=== PATIENT | male | born 1955 | race Caucasian/White ===

== ENCOUNTER → 2019-01-29 | Outpatient (CLI) | payer BC, OTHER ==
--- NOTE | 2019-01-30 00:27 | CONS ---
CONSULTATION DATE OF SERVICE: 01/29/2019 63-year-old gentleman who has [facility] for obstructive sleep apnea-hypopnea syndrome. HISTORY OF PRESENT ILLNESS/SLEEP WAKE EVALUATION: Patient usual sleep schedule on weekdays from 9 p.m. to 3:30 am. On weekends, from about 1:00 am until 4:30 am. No problems with falling asleep. No TV in bedroom. He sleeps in different positions, including back and side with loud snoring and witnessed episodes of stopped breathing during sleep. The patient wakes up from sleep up to 4 times with episodes of choking, grinding teeth, palpitation, gasping for air, restless legs, sweating and has 2 episodes of nocturia. No history of hypnagogic hallucinations, sleep paralysis or cataplexy. Patient feels significantly tired and sleepy during the day. Edison Sleepiness Scale is in very high range of 19. PAST MEDICAL HISTORY: Positive for hypertension. PAST SURGICAL HISTORY: Left hip replacement. MEDICATIONS: Lisinopril, metoprolol, meloxicam. FAMILY HISTORY: Hypertension, heart problems, hyperlipidemia, fibromyalgia, snoring, cancer, diabetes, acid reflux, ulcers. SOCIAL HISTORY: Quit smoking more than 20 years ago. Alcohol consumption none. REVIEW OF SYSTEMS: Multiple awakenings from sleep, tiredness and sleepiness during the day. Swelling of the legs. PHYSICAL EXAM: gentleman without distress. BP 120/68, HR 82, RR 18, height 5 feet 9 inches, weight 303 pounds. Body mass index 44.7, temperature 98.1, oxygen saturation at room air 94%. Oropharynx extremely low position of soft palate. Mallampati 4, restriction of nasal breathing bilaterally, wide neck 18.5 inches in circumference. ABDOMEN: Obese EXTREMITIES 1-2+ bilateral ankle edema. Sign of some pulling dermatitis of the skin of the low legs. IMPRESSION: 1. Snoring, witnessed episodes of stopped breathing during sleep, multiple awakenings from sleep, extremely low position of soft palate, wide neck, sleepiness, obstructive sleep apnea-hypopnea syndrome. 2. Very high range of level Edison Sleepiness Scale of 19. Dictate necessity to include hypersomnia in differential diagnosis. 3. Obesity. Obesity, body mass index 44.7. 4. Asthma. 5. Hypertension. 6. History of extrasystoles. 7. Status post left hip replacement. 8. Swelling of the legs with sign of chronic dermatitis of the low legs, possible congestive heart failure. PLAN: 1. Polysomnography for evaluation of patient's breathing during sleep. 2. CPAP/BiPAP titration if sleep study confirms obstructive sleep apnea-hypopnea syndrome. 3. Preferable position during sleep on the side. 4. No driving if patient feels any sleepiness. 5. I will see patient for follow up visit to explain results of testing and following plan. Popeye Jeffries MD, PhD, FAASM Diplomat of [place] [employer] [place] [employer] [facility] [place] MMODL / IJN: [id number] /
== END ==
LOC: SLEEP 16:44
PROVIDERS: ATTEND Internal Medicine
DX: G47.33 Obstructive sleep apnea (adult) (pediatric) (principal); E66.9 Obesity, unspecified; J45.909 Unspecified asthma, uncomplicated; I10 Essential (primary) hypertension; I49.49 Other premature depolarization; R60.0 Localized edema; Z96.642 Presence of left artificial hip joint; Z68.41 Body mass index [BMI] 40.0-44.9, adult; Z87.891 Personal history of nicotine dependence; Z79.1 Long term (current) use of non-steroidal anti-inflammatories (NSAID); Z79.899 Other long term (current) drug therapy
CPT/HCPCS: 99211

== ENCOUNTER → 2019-03-27 | Outpatient (CLI) | payer OTHER | END | disposition home or self-care (01) | LOC: LABPAT 16:32 | PROVIDERS: ATTEND Orthopaedic Surgery | DX: Z01.812 Encounter for preprocedural laboratory examination (principal) | CPT/HCPCS: 87070 ==

== ENCOUNTER 2019-04-21 09:21 | Inpatient (IN) | payer OTHER ==
[2019-04-16 14:48] VITALS: BMI 45.8
--- NOTE | 2019-04-20 09:52 | HP ---
HISTORY AND PHYSICAL CHIEF COMPLAINT: Left knee pain. HISTORY OF PRESENT ILLNESS: The patient is a 63-year-old male who presents with left knee pain that has progressed over the past several years. He has had 2 previous surgeries in the 1970s. He notes swelling and stiffness. He has difficult time with normal weightbearing activities. He has tried medications and previous injections with minimal relief. PAST MEDICAL HISTORY: Significant for arthritis, bipolar affective disorder, heart disease, hypertension, obesity, and psoriasis. PAST SURGICAL HISTORY: Significant for previous left knee surgeries, previous right foot surgery, umbilical hernia repair along with right total hip arthroplasty. CURRENT MEDICATIONS: 1. Hydrochlorothiazide. 2. Lisinopril. 3. Metoprolol. He denies drug allergies. FAMILY HISTORY: Significant for cancer and heart disease. SOCIAL HISTORY: Significant for previous tobacco use. REVIEW OF SYSTEMS: A 16-point review of systems otherwise reviewed and is noncontributory. PHYSICAL EXAMINATION: The patient is approximately 5 foot 9, 310 pounds of endomorphic habitus. HEENT: Exam is nonfocal. NECK: Supple. He has painless passive motion of his left hip. Straight leg raise is negative. Active motion left knee -16 to 105 degrees of flexion. He has a healed medial arthrotomy. He has a large effusion. He is tender about the medial joint line. Collaterals are stable, Rachna is negative, Yogesh's is equivocal. He has genu varum alignment. He has venostasis changes in both lower extremities; 2+ pedal pulses are noted bilaterally. Previous x-rays of the left knee obtained in the office show severe medial and patellofemoral compartment narrowing. IMPRESSION: 1. Left knee severe medial and patellofemoral compartment osteoarthrosis. 2. Obesity. 3. Venostasis. RECOMMENDATIONS: I talked to the patient at length regarding his condition and treatment options. At this point, he is quite symptomatic despite conservative measures. After thorough discussion, opted to proceed with surgery. We will plan to proceed with left total knee arthroplasty. We will institute DVT prophylaxis postoperatively. MMODL / IJN: [id number] /
[~2019-04-21 09:21] MED LIST: ACETAMINOPHEN TAB 500 MG TAB PO ONE; DEXAMETHASONE SOD PHOSPHATE 10 MG/ML 1 ML VIAL IV ONE; LIDOCAINE 1% 20 ML VIAL (10MG/ML) FOR IV START INTRADERMA PRN; MELOXICAM 7.5 MG TAB PO ONE; ONDANSETRON 4 MG/2 ML VIAL IVP ONE; TRANEXAMIC ACID 1,000 MG in SODIUM CHLORIDE 0.9% 100 ML IVPB ONE; ceFAZolin 3 GM in SODIUM CHLORIDE 0.9% 100 ML IVPB ONE; fentaNYL (PF) 50 MCG/ML 2 ML AMP IV PRN
[2019-04-21] MEDS: LACTATED RINGERS 1,000 ML IV SCH (09:47)
[2019-04-21] MEDS ORDERED: MIDAZOLAM 2 MG/2 ML VIAL IV ONE (10:38)
[2019-04-21] MEDS ORDERED: fentaNYL (PF) 50 MCG/ML 2 ML AMP IV ONE (10:38)
[2019-04-21] MEDS ORDERED: ROPIVACAINE 246.25 MG, EPINEPHrine 0.5 MG, KETOROLAC 30 MG, cloNIDine HCL/PF 80 MCG, WA... MISCELLANE ONE ×5 (11:11)
[2019-04-21] MEDS ORDERED: LIDOCAINE 1% INJ 10MG/ML (20 ML MDV) ONE (11:44)
[2019-04-21] MEDS ORDERED: PROPOFOL 10 MG/ML 20 ML VIAL IV ONE (11:44)
[2019-04-21] MEDS ORDERED: ePHEDrine 50 MG/ML 1 ML AMP ONE (11:44)
[2019-04-21] MEDS ORDERED: TRANEXAMIC ACID 1,000 MG/10 ML VIAL ONE (11:44)
[2019-04-21] MEDS ORDERED: KETAMINE 10 MG/ML 20 ML VIAL ONE (11:44)
[2019-04-21] MEDS ORDERED: diphenhydrAMINE 50 MG/ML 1 ML VIAL ONE (11:44)
[2019-04-21] MEDS ORDERED: PHENYLEPHRINE-0.9% NACL SYG 1 MG/10 ML SYRINGE ONE (11:44)
[2019-04-21] MEDS ORDERED: MIDAZOLAM 2 MG/2 ML VIAL ONE (11:44)
[2019-04-21] MEDS ORDERED: SODIUM CHLORIDE 0.9% 100 ML BAG ONE (11:44)
[2019-04-21] MEDS ORDERED: fentaNYL (PF) 50 MCG/ML 2 ML AMP ONE (11:44)
[2019-04-21] MEDS ORDERED: ceFAZolin 3,000 MG in SODIUM CHLORIDE 0.9% IRRIGATIO 3,000 ML IRRIGATION ONE (12:25)
[2019-04-21] MEDS ORDERED: LACTATED RINGERS 1,000 ML IV ONE (13:08)
[2019-04-21] MEDS ORDERED: NALOXONE 0.4 MG/ML 1 ML VIAL IV PRN (13:51)
[2019-04-21] MEDS ORDERED: HYDROcodone/APAP 7.5-325MG 1 EACH TAB PO PRN (13:51)
[2019-04-21] MEDS ORDERED: HYDROmorphone 0.5 MG/0.5 ML SYRINGE IVP PRN (13:51)
[2019-04-21] MEDS ORDERED: traMADol 50 MG TAB PO PRN (13:51)
[2019-04-21] MEDS ORDERED: MAGNESIUM HYDROXIDE 2,400 MG/10 ML CUP PO PRN (13:51)
[2019-04-21] MEDS ORDERED: ONDANSETRON 4 MG/2 ML VIAL IVP PRN (13:51)
--- NOTE | 2019-04-21 14:19 | P.OP ---
Date of Procedure: 04/21/19 Preoperative Diagnosis: Left knee severe tricompartmental osteoarthrosis Postoperative Diagnosis: Same Procedure(s) Performed: Left total knee arthroplastycementedposterior stabilized Implants: Depuy Attune size 7 cemented femoral component, size 6 cemented tibial component with a 50 mm tibial stem, 9 mm articular surface, 38 mm cemented patellar component. This is a posterior stabilized implant. Anesthesia: regional, local, spinal Surgeon: Jose Amato Fluxer #1: Alfredo Ybarra Estimated Blood Loss (ml): 50 Pathology: other (Bone fragments) Condition: stable Disposition: PACU Indications for Procedure: The patient's a 63-year-old male who presents with progressive left knee pain secondary to osteoarthrosis despite conservative measures. A discussion of the risks and benefits of operative intervention versus continued conservative measures was made with the patient. He opted to proceed with surgery. Operative risks to include infection, neurovascular injury, development of blood clots, possible fracture, possible component loosening and need for subsequent procedures was discussed. Informed consent was obtained. Operative Findings: As below Description of Procedure: The patient was brought to the operating room, and after induction of spinal anesthesia the left lower extremity was prepped and draped in a normal fashion. The tourniquet was inflated to 270 mm marker. A longitudinal incision extending 3 finger breaths above the superior pole of patella extending to the medial aspect the tibial tubercle was then made. The skin and subcutaneous tissues were divided sharply. Electrocautery was used for hemostasis. A medial parapatellar arthrotomy was performed. The medial soft tissues to include the superficial and deep portions of the medial collateral ligament were elevated subperiosteally. The patella was everted. A portion of the retropatellar fat pad was excised sharply. The anterior cruciate ligament was sacrificed. Blunt retractors were placed. A starting hole was made in the distal femur 1 cm anterior to the posterior cruciate ligament origin. An intramedullary femoral guide was then inserted planning on 5 valgus distal cut with 9 mm distal resection. The cutting block was pinned in place. The distal cut was then made. The posterior referencing sizing guide was utilized. I felt size 7 was most appropriate. 3 of external rotation was built into the system and verified off the trans-epicondylar axis and the posterior condyles. The cutting block was pinned in place. The anterior, posterior, and chamfer cuts then made. Bone fragments were removed. The intercondylar guide was placed and the notch cut was made with a sagittal saw. The bone block was removed in one fragment. The trial component was then placed. There is good anterior to posterior and medial to lateral fit. The distal peg holes were drilled. The trial component was removed. Attention was then paid towards preparing the proximal area. An extra medullary guide was utilized in line with the tibial shaft and second metatarsal distally. I planned on 2 mm resection from the medial compartment. The cutting block was pinned in place. The proximal tibial cut was then made. The bone was removed in one fragment. The remnants of the medial and lateral menisci were excised at the capsular junction with electrocautery. The tibia sized most appropriately at size 6. The trial femoral and tibial components were placed along with a 9 mm articular surface. I was able to obtain full flexion and extension with internal and external rotation. After several flexion and extension cycles, the tibial rotation was marked with electrocautery line with the medial one third of the tibial tubercle. Attention was then paid towards preparing the patella. A patella reamer was utilized taking stem to 14 mm of bone stock. A good flush cut was made. The patella sized most appropriately 38 mm. The peg holes were drilled. The trial components placed. I had good patellofemoral tracking with no hands technique. The trial components were then removed. The tibia was prepared in the appropriate rotation with appropriate drill and keel punch. The posterior osteophytes were removed with a curved osteotome. The flexion and extension gaps were checked and felt to be symmetric. A trial components were then removed. The posterior soft tissues were injected with ropivacaine. The bony surfaces were prepared with pulsatile lavage and dried. The tibial component was then cemented place was fully seated. Excess cement was removed. The femoral component cemented place and was fully seated. Excess cement was removed. The trial 9 mm articular surface was placed and the knee was put in full extension. The patella component was cemented place. After the cement had sufficiently hardened, the knee was again taken through a range of motion. Again I was able to obtain full flexion and extension with varus and valgus stress. The trial 9 mm articular surface was removed and the final one inserted. This was fully seated. Care was taken to avoid any soft tissue interposition. Pulsatile lavage was again utilized. The medial parapatellar arthrotomy was closed with #2 Ethibond suture. The tourniquet was deflated with approximately 80 minutes total tourniquet time. Final hemostasis was obtained with the cautery. There was minimal bleeding therefore a deep drain was not placed. The second dose of IV TXA was given. The subcutaneous tissues were reapproximated with interrupted 2-0 Vicryl sutures. The skin was reapproximated with 3-0 subcuticular strata fix suture. Skin tape and adhesive was applied. A sterile dressing was applied. The patient was awoken from sedation and transferred to recovery room in good condition. Blood loss was estimated at 50 mL. No complications were incurred. Sponge and needle counts were correct at the end of the case. Roberto COLLINS assisted during the major components of this case to include exposure, bone resection, implantation, and closure.
[2019-04-21] MEDS ORDERED: ROPIVACAINE 0.2%-NS ON-Q PUMP 1,090 MG, EMPTY PAIN BALL 1 EACH MISCELLANE PRN ×2 (14:27→14:32)
--- NOTE | 2019-04-21 14:38 | P.ANPRN ---
Procedure Note - Anesthesia - Nerve Block Performed Left Adductor Canal Infusion Time Out Performed: Yes Date of Procedure: 04/21/19 Procedure Start Time: 10:35 Procedure Stop Time: 10:48 Location of Patient Procedure: PreOp Indication: Acute Post-Operative Pain, Requested by Surgeon Specifically requested for management of pain by DrJose: Jose Amato Sedation Type: Sedate with meaningful contact maintained Preparation: Sterile Prep Position: Supine Catheter Depth at Skin (cm): 10 Catheter: Indwelling Needle Types: Pajunk Needle Gauge: 18 Ultrasound used to visualize needle placement: Yes Ultrasound used to observe medication spread: Yes Injectate: 0.5% Ropivacaine (see comment for volume) (20 cc) Blood Aspirated: Yes Pain Paresthesia on Injection Noted: No Resistance on Injection: Normal Image Stored and Saved: Yes Events: Other (see comment) (Very deep catheter tip placement with needle at a steep angle. Repositioned without blood aspiration to good effect.)
[2019-04-21] MEDS: HYDROmorphone 0.5 MG/0.5 ML SYRINGE IVP PRN ×3 (14:49→15:23)
--- NOTE | 2019-04-21 14:54 | XR ---
EXAMINATION TYPE: XR knee limited LT DATE OF EXAM: 04/21/2019 CLINICAL HISTORY: Left knee pain and arthritis status post total knee replacement. TECHNIQUE: Portable AP and crosstable lateral views of the left knee are obtained immediately postop eratively. COMPARISON: None FINDINGS: Metallic hardware from total left knee arthroplasty is seen and appears satisfactory in al ignment and position. There is evidence of recent surgery with diffuse subcutaneous gas and soft tis rafael swelling noted. IMPRESSION: METALLIC HARDWARE FROM TOTAL LEFT KNEE ARTHROPLASTY IS SATISFACTORY IN ALIGNMENT.
[2019-04-21] MEDS ORDERED: KETOROLAC 30 MG/ML 1 ML VIAL IVP ONE (15:05)
[2019-04-21] MEDS ORDERED: diphenhydrAMINE 50 MG/ML 1 ML VIAL IVP ONE (15:14)
[2019-04-21] MEDS: HYDROmorphone 1 MG/ML 1 ML SYRINGE IVP PRN ×2 (16:06→19:55)
[2019-04-21] MEDS: ceFAZolin 3 GM in SODIUM CHLORIDE 0.9% 100 ML IVPB SCH (19:55)
[2019-04-21] MEDS ORDERED: SENNOSIDES-DOCUSATE SODIUM 1 EACH TAB PO SCH (21:00)
[2019-04-21] MEDS: HYDROcodone/APAP 7.5-325MG 1 EACH TAB PO PRN (21:17)
[2019-04-22] MEDS: HYDROmorphone 1 MG/ML 1 ML SYRINGE IVP PRN (01:43)
[2019-04-22] MEDS: ceFAZolin 3 GM in SODIUM CHLORIDE 0.9% 100 ML IVPB SCH (04:34)
[2019-04-22] MEDS: HYDROcodone/APAP 7.5-325MG 1 EACH TAB PO PRN ×3 (04:38→13:17)
[2019-04-22] MEDS: LACTATED RINGERS 1,000 ML IV SCH (06:24)
[2019-04-22] MEDS ORDERED: LISINOPRIL 20 MG TAB PO SCH (09:00)
[2019-04-22] MEDS ORDERED: METOPROLOL SUCCINATE (ER) 25 MG TAB.ER.24H PO SCH (09:00)
[2019-04-22] MEDS ORDERED: MELOXICAM 7.5 MG TAB PO SCH (09:00)
[2019-04-22] MEDS ORDERED: RIVAROXABAN 10 MG TAB PO SCH (09:00)
[2019-04-22 09:26] LABS: Basophils % (A) 0 %; Eosinophils % (A) 0 %; HCT 41.1 % (39.0-53.0); HGB 13.3 gm/dL (13.0-17.5); Lymphocytes % (A) 9 %; MCH 29.4 pg (25.0-35.0); MCHC 32.3 g/dL (31.0-37.0); MCV 91.1 fL (80.0-100.0); Monocytes # (A) 0.8 k/uL (0-1.0); Monocytes % (A) 7 %; Neutrophils # (A) 8.4 k/uL (1.3-7.7); Neutrophils % (A) 81 %; Platelet Count 166 k/uL (150-450); RBC 4.52 m/uL (4.30-5.90); RDW 12.6 % (11.5-15.5); WBC 10.3 k/uL (3.8-10.6)
--- NOTE | 2019-04-22 11:37 | P.PN ---
Subjective Progress Note Date: 04/22/19 Principal diagnosis: Status post left total knee arthroplasty Patient evaluated at bedside, he is resting comfortably. His done very well with therapy. His pain is controlled. Denies any chest pain, shortness of breath, nausea or vomiting. Objective - Vital Signs Vital signs: Vital Signs Temp 97.9 F 04/22/19 07:00 Pulse 71 04/22/19 07:00 Resp 12 04/22/19 07:00 BP 132/74 04/22/19 07:00 Pulse Ox 93 L 04/22/19 07:00 Intake & Output 04/21/19 04/22/19 04/22/19 18:59 06:59 18:59 Intake Total 1701 Output Total 50 400 200 Balance 1651 -400 -200 Intake: IV 1701 Output: Urine 400 200 Estimated Blood Loss 50 Other: Voiding Method Urinal Toilet # Voids 2 1 - Exam Left lower extremity: Incision is clean, dry, and intact. Small amount of drainage noted at the distal end of the incision. The exofin fusion tape is in good condition. There is minimal soft tissue swelling and ecchymosis surrounding the medial and lateral aspects of the incision. Calf is soft, no tenderness with palpation. Plantar flexion, dorsiflexion, EHL, FHL are intact. Sensory exam to light touch throughout the extremity is intact, dorsal pedis pulses 2+. - Labs CBC & Chem 7: 04/22/19 08:39 Labs: Abnormal Lab Results - Last 24 Hours (Table) 04/22/19 Range/Units 08:39 Neutrophils # 8.4 H (1.3-7.7) k/uL Assessment and Plan Plan: Assessment: Postop day #1 status post left total knee arthroplasty Plan: Pain control, discharge on oral medication GI and DVT prophylaxis, Xarelto 10 mg daily for 12 days Wound care instructions discussed with patient at bedside Home therapy and nursing after discharge Icing elevating techniques discussed Medical recommendations Discharge home today Time with Patient: Less than 30
--- NOTE | 2019-04-22 11:40 | P.DS ---
Providers Date of admission: 04/21/19 09:21 Expected date of discharge: 04/22/19 Attending physician: Jose Amato Consults: 04/21/19 13:53 Consult Physician Routine Consulting Provider: Leah Reid Reason/Comments: medical management Do you want consulting provider notified?: Yes Primary care physician: Leah Reid [place] Hospital Course: Date of admission: 04/21/2019 Date of discharge: 04/22/2019 Admission diagnosis: Status post left total knee arthroplasty Discharge diagnosis: Same Attending physician: Dr. Amato Surgical procedures: Left total knee arthroplasty Brief history: Patient is a 63-year-old male with a history of progressive primary left knee osteoarthritis. At this point patient has failed conservative treatment measures and has opted to proceed with a elective left total knee arthroplasty. Hospital course: Details of patient's surgery can be found in operative report. Patient tolerated the procedure well and was subsequently transported to orthopedic floor. Patient's orthopeidc and medical care was provided daily. Patient had daily laboratory tests performed for evaluation of overall blood counts. Patient had daily physical therapy to include strengthening range of motion as well as education with walker ambulation. Patient had daily CPM usage as part of their physical therapy program. Patient was treated with Xarelto for their postoperative DVT prophylaxis during their inpatient stay. Patient was noted to have a relatively uneventful postoperative course. Patient reported satisfactory pain control with oral pain medications by postoperative day 0. Patient showed satisfactory progress with physical therapy. Patient moved steadily through the program and had no difficulty meeting the goals by postoperative day 1. Given patient's otherwise satisfactory course and having met physical therapy goals, plan is to discharge patient home on postoperative day 1. Discharge condition/disposition: Patient will be discharged home in stable condition. Discharge medications: Instructions are given on resumption of patient's normal daily medications per primary care recommendation, in addition patient will be prescribed [place] 7.5 mg/325 mg, Colace 100 mg, Xarelto 10 mg. Discharge instructions: 1. Wound care and infection precautions, keep incision dry and covered while showering, no lotions, creams, moisturizers. No soaking, tubs, pools, hottubs. Do not scrub over the incision. 2. Weight-bear as tolerated with walker / cane until follow-up. 3. Ice and elevate when necessary. Do not exceed 20 minutes per hour with ice pack. 4. Utilize compression sleeve until seen at first follow up appointment. 5. Visiting nursing care. 6. Home physical therapy including home CPM. 7. Pain meds and anticoagulants per prescription. 8. Pain medication has potential to cause constipation. Increase oral fluid and fiber intake. Contact primary care provider if you have not had a bowel movement within 48 hours after discharge 9. No anti-inflammatory medication until discussed at first post operative visit, this including Motrin, Aleve, Mobic, Diclofenac. 10. Follow up in office at 2 weeks postop with Roberto Ybarra PA-C 11. Follow up with your primary care doctor 7-10 days after discharge. 12. Contact [facility] with any questions, . Procedures: Left total knee arthroplasty Patient Condition at Discharge: Good Plan - Discharge Summary Discharge Rx Participant: Yes New Discharge Prescriptions: New Docusate [Colace] 100 mg PO DAILY #30 capsule HYDROcodone/APAP 7.5-325MG [[place] 7.5] 1 - 2 each PO Q6HR PRN #56 tab PRN Reason: Pain Rivaroxaban [Xarelto] 10 mg PO DAILY #12 tab No Action Metoprolol Succinate (ER) [Toprol Xl] 25 mg PO DAILY Lisinopril [Zestril] 20 mg PO DAILY Discharge Medication List Lisinopril [Zestril] 20 mg PO DAILY 04/16/19 [History] Metoprolol Succinate (ER) [Toprol Xl] 25 mg PO DAILY 04/16/19 [History] Docusate [Colace] 100 mg PO DAILY #30 capsule 04/22/19 [Rx] HYDROcodone/APAP 7.5-325MG [[place] 7.5] 1 - 2 each PO Q6HR PRN #56 tab 04/22/19 [Rx] Rivaroxaban [Xarelto] 10 mg PO DAILY #12 tab 04/22/19 [Rx] Follow up Appointment(s)/Referral(s): [facility] [NON-STAFF] - As Needed (walker and continuous passive motion knee machine) Leah Reid DO [Primary Care Provider] - 04/29/19 12:00 pm (At [facility]) [facility], [NON-STAFF] - As Needed Alfredo Ybarra PAC [PHYSICIAN PROPERTY INSURANCE CLAIMS EXAMINER] - 05/06/19 3:50 pm Activity/Diet/Wound Care/Special Instructions: Orthopedic Discharge Instructions: 1. Wound care and infection precautions, keep incision dry and covered while showering, no lotions, creams, moisturizers. No soaking, pools, hot tubs. Do not scrub over incision. 2. Weight-bear as tolerated with walker / cane until follow-up. 3. Ice and elevate when necessary. Do not exceed 20 minutes per hour with ice pack. 4. Utilize compression sleeve until seen at first follow up appointment. 5. Pain meds and anticoagulants per prescription. 6. Pain medication has potential to cause constipation. Increase oral fluid and fiber intake. Contact primary care provider if you have not had a bowel movement within 48 hours after discharge. 7. No anti-inflammatory medication until discussed at first post operative visit, this including Motrin, Aleve, Mobic, Diclofenac. 8. Follow up in office at 2 weeks postop with Roberto Ybarra PA-C 9. Follow up with your primary care doctor 7-10 days after discharge. 10. Contact [facility] with any questions, . Discharge Disposition: HOME WITH HOME HEALTH SERVICES
--- NOTE | 2019-04-22 11:58 | P.PN ---
Progress Note - Text Progress Note Date: 04/22/19 Patient was seen at bedside at 6:35 AM. He is postop day 1 from left total knee replacement with adductor canal catheter placed for pain . Ropivacaine 0.2% infusion running at 8 ml per hour. VAS score is 6. He denies side effects. Lower extremity sensation and motor function is intact. He has not yet ambulated. Dressing clean dry and intact over catheter site.
[2019-04-22 13:18] VITALS: BP 131/78; PULSE 88; RESP 16; TEMP 98
--- NOTE | 2019-04-22 23:27 | P.CONS ---
History of Present Illness - Reason for Consult Consult date: 04/22/19 medical management - Chief Complaint knee pain - History of Present Illness Galindo Olivo is a 63 yo M with hx OA, HTN, PVC who is POD#1 after a scheduled L TKA. He is feeling well today, endorses some pain with bearing weight and bending his knee. Denies fever, chills, chest pain or leg swelling. He has no concerns today Review of Systems All systems: negative Constitutional: Denies chills, Denies fever Eyes: denies blurred vision, denies pain Ears, nose, mouth and throat: Denies headache, Denies sore throat Cardiovascular: Denies chest pain, Denies shortness of breath Respiratory: Denies cough Gastrointestinal: Denies abdominal pain, Denies diarrhea, Denies nausea, Denies vomiting Musculoskeletal: Reports as per HPI, Denies myalgias Integumentary: Denies pruritus, Denies rash Neurological: Denies numbness, Denies weakness Psychiatric: Denies anxiety, Denies depression Endocrine: Denies fatigue, Denies weight change Past Medical History Past Medical History: Hypertension, Osteoarthritis (OA), Sleep Apnea/CPAP/BIPAP Additional Past Medical History / Comment(s): uses cpap History of Any Multi-Drug Resistant Organisms: None Reported Past Surgical History: Hernia Repair, Joint Replacement, Orthopedic Surgery Additional Past Surgical History / Comment(s): BILAT HAND SX, RT FOOT SX X3, LT KNEE SX X 2, LT MARYELLEN, COLONOSCOPY, GRAPEFRUIT SIZED CYST REMOVED FROM TAILBONE AREA Past Anesthesia/Blood Transfusion Reactions: No Reported Reaction Smoking Status: Former smoker - Past Family History Mother Family Medical History: Cancer Medications and Allergies Home Medications Medication Instructions Recorded Confirmed Type Lisinopril [Zestril] 20 mg PO DAILY 04/16/19 04/16/19 History Metoprolol Succinate (ER) [Toprol 25 mg PO DAILY 04/16/19 04/16/19 History Xl] Apixaban [Eliquis] 2.5 mg PO BID #60 tab 04/22/19 Rx Docusate [Colace] 100 mg PO DAILY #30 capsule 04/22/19 Rx HYDROcodone/APAP 7.5-325MG [[place] 1 - 2 each PO Q6HR PRN #56 tab 04/22/19 Rx 7.5] Allergies Allergy/AdvReac Type Severity Reaction Status Date / Time No Known Allergies Allergy Verified 04/21/19 09:39 Physical Exam Vitals: Vital Signs Temp Pulse Resp BP Pulse Ox 04/22/19 12:32 98 F 88 16 131/78 93 L 04/22/19 07:00 97.9 F 71 12 132/74 93 L 04/22/19 01:01 97.9 F 71 18 112/67 95 Intake and Output 04/22/19 04/22/19 04/23/19 14:59 22:59 06:59 Output Total 200 Balance -200 Output: Urine 200 Other: Voiding Method Toilet # Voids 1 General: well nourished, well developed, NAD. Vitals reviewed Eyes: PERRL, EOMI, conjunctiva normal HENT: normocephalic, mucus membranes moist Neck: supple, no JVD Lungs: normal respiratory effort, no wheezes or rales CV: Regular rate and rhythm, no murmur. Peripheral pulses 2+ Abdomen: soft, nondistended, no organomegaly MSK: L knee c/d/i, no edema Lymph: no cervical or axillary LAD Skin: warm and dry. Neuro: A&Ox3, normal mood and affect Results CBC & Chem 7: 04/22/19 08:39 Labs: Abnormal Lab Results - Last 24 Hours (Table) 04/22/19 Range/Units 08:39 Neutrophils # 8.4 H (1.3-7.7) k/uL Assessment and Plan (1) Hypertension Status: Acute Code(s): I10 - ESSENTIAL (PRIMARY) HYPERTENSION SNOMED Code(s): 08211874 (2) PVC (premature ventricular contraction) Status: Acute Code(s): I49.3 - VENTRICULAR PREMATURE DEPOLARIZATION SNOMED Code(s): 89669719 (3) Osteoarthritis of left knee Status: Acute Code(s): M17.12 - UNILATERAL PRIMARY OSTEOARTHRITIS, LEFT KNEE SNOMED Code(s): 648703591870541 (4) S/P total knee arthroplasty Status: Acute Code(s): Z96.659 - PRESENCE OF UNSPECIFIED ARTIFICIAL KNEE JOINT SNOMED Code(s): 5839243610395 Plan: 1. L knee OA. S/p TKA. Medically stable for discharge. PT per primary 2. HTN. PVC. Continue home lisinopril and toprol
== END 2019-04-22 14:39 | disposition home health service (06) | DRG 470 ==
LOC: 2ORMAIN 09:21 → 4SSUR 15:33
PROVIDERS: ADMIT Orthopaedic Surgery; ATTEND Orthopaedic Surgery
PROC: 0SRD0J9 Replacement of Left Knee Joint with Synthetic Substitute, Cemented, Open Approach (ICD-10-PCS; principal; 2019-04-21 11:00)
DX: M17.12 Unilateral primary osteoarthritis, left knee (principal); Z68.42 Body mass index [BMI] 45.0-49.9, adult; E66.9 Obesity, unspecified; F31.9 Bipolar disorder, unspecified; G47.30 Sleep apnea, unspecified; Z99.89 Dependence on other enabling machines and devices; I49.3 Ventricular premature depolarization; Z79.01 Long term (current) use of anticoagulants; Z79.899 Other long term (current) drug therapy; Z87.891 Personal history of nicotine dependence; Z96.641 Presence of right artificial hip joint; L40.9 Psoriasis, unspecified; Z82.49 Family history of ischemic heart disease and other diseases of the circulatory system; Z80.9 Family history of malignant neoplasm, unspecified; I87.8 Other specified disorders of veins; I11.9 Hypertensive heart disease without heart failure
CPT/HCPCS: 64448; 76942; 85025; 88300

== ENCOUNTER → 2019-07-16 | Outpatient (CLI) | payer OTHER ==
--- NOTE | 2019-07-16 16:57 | PN ---
PROGRESS NOTE DATE OF SERVICE: 07/16/2019 This patient is a 64-year-old gentleman who has been [facility] for treatment of obstructive sleep apnea-hypopnea syndrome. Recently the patient had a polysomnogram which showed extremely severe sleep apnea and then he had CPAP titration. Subsequently his respiration during titration normalized. I explained results of the test to the patient in detail. He received his CPAP unit and today is his first visit after he was started on treatment with CPAP. The patient is able to use CPAP equipment every night and he sleeps much better with the CPAP treatment than without; sleeps better, feels better during the day. Does not feel sleepiness anymore. [place] Sleepiness Scale today is 6. I checked his CPAP unit. CPAP pressure is in the range between 10 and 19. Average pressure is 14.9. Usage is 30/30 nights and 24/30 nights for more than 4 hours with average usage 5.3 hours, which is very good compliance. Leak is only 8 L/minute. Apnea- hypopnea index is only 1.3, which is absolutely perfect. MEDICATIONS: Lisinopril, metoprolol, meloxicam. PHYSICAL EXAMINATION: GENERAL: A pleasant patient in no distress. VITAL SIGNS: BP 156/89, HR 76, RR 16, weight 320. Temperature 96.2, oxygen saturation at room air 96%. HEENT: PERRLA, EOMI. Evaluation of oropharynx showed tongue protrudes midline. Extremely low position of soft palate. Mallampati IV. NECK: Supple. No JVD. Thyroid is not palpable. LUNGS: Clear to percussion and to auscultation. Good air exchange. No wheezing or rhonchi. HEART: S1, S2 regular. No murmurs, gallops or rubs. ABDOMEN: Obese. EXTREMITIES: No clubbing or cyanosis. [employer]: Awake, alert, and oriented X3. Cranial nerves 2 to 7 intact. There is no fasciculation or atrophy. noted. No focal deficits observed. IMPRESSION: 1. Extremely severe obstructive sleep apnea-hypopnea syndrome with apnea-hypopnea index 97.6 with extremely severe oxygen desaturation to 60.2%, under full control with CPAP. The patient demonstrated practically 100% compliance with treatment, benefitting from treatment. 2. Some periodic limb movements were documented during diagnostic night and titration night. No clinical symptoms at the present time. 3. Obesity. 4. Asthma. 5. Hypertension. 6. History of . 7. Status post left hip replacement. 8. History of swelling of legs with chronic dermatitis. PLAN: 1. Patient will continue to use CPAP equipment every night for the whole night. 2. Losing weight. 3. Sleep hygiene with regular time in bed for at least 7-1/2 to 8 hours. 4. No driving if feeling any sleepiness. 5. I will maintain all necessary prescriptions for CPAP supplies, including mask, tube and filters. Thank you very much for allowing me to participate in the management of your patient. Sincerely, Popeye Jeffries MD, PhD, FAASM Diplomat of [employer] [facility] [place] MMALONZOL / CLARISSAN: [phone] /
== END | disposition home or self-care (01) ==
LOC: SLEEP 15:53
PROVIDERS: ATTEND Internal Medicine
DX: G47.33 Obstructive sleep apnea (adult) (pediatric) (principal); I10 Essential (primary) hypertension; E66.9 Obesity, unspecified; J45.909 Unspecified asthma, uncomplicated; Z96.642 Presence of left artificial hip joint; Z99.89 Dependence on other enabling machines and devices

== ENCOUNTER 2020-07-08 21:20 | Emergency (ER) | payer OTHER ==
[2020-07-08 21:29] VITALS: RESP 18
[2020-07-08] MEDS ORDERED: DIAZEPAM 5 MG/ML 2 ML INJ IVP STA (21:45)
[2020-07-08] MEDS ORDERED: HYDROmorphone 1 MG/ML 1 ML SYRINGE IVP STA (21:45)
[2020-07-08] MEDS ORDERED: KETOROLAC 15 MG/ML 1 ML VIAL IVP STA (21:45)
[2020-07-08 22:33] VITALS: BP 138/79; PULSE 70; TEMP 99.2
[2020-07-08] MEDS ORDERED: ACET/COD 300 MG/30 MG STARTER PACK 6 TAB BTL PO STA (22:40)
--- NOTE | 2020-07-08 22:40 | ED ---
Neck Injury/Pain HPI - General Chief Complaint: Neck Pain/Injury Stated Complaint: Possible pinched nerve back/neck Time Seen by Provider: 07/08/20 21:30 Mode of arrival: EMS Limitations: no limitations - History of Present Illness Initial Comments: 65-year-old male patient presents to the emergency department today for evaluation of right-sided neck pain. Patient states that the pain increases with any type of movement of his head. States a couple of days ago he was getting on the bus and he swung his backpack around causing pain to his neck. States that it has worsened over the last couple of days. States he can now barely move his head. Denies any radiation of the pain down his arms. Denies numbness or tingling to his hands or fingers. He did recently have an MRI of his neck due to episodes of pain, he has not yet received the results of this. He denies any chest pain or shortness of breath. Denies any back pain. Denies taking any medication for his symptoms. Patient denies any recent rash, cough, abdominal pain, nausea, vomiting, diarrhea, constipation, dizziness, weakness, hematuria, dysuria, urinary urgency, urinary frequency, headache, visual c hanges, or any other complaints. - Related Data Home Medications Medication Instructions Recorded Confirmed Metoprolol Succinate (ER) [Toprol 25 mg PO DAILY 04/16/19 07/08/20 Xl] lisinopriL [Zestril] 20 mg PO DAILY 04/16/19 07/08/20 Diclofenac Sodium [Voltaren 4 gm TOPICAL QID PRN 07/08/20 07/08/20 Arthritis Pain 1% Gel] Hydrocortisone Lotion [Hytone 2.5% 1 applic TOPICAL DAILY 07/08/20 07/08/20 Lotion] Meloxicam 15 mg PO DAILY 07/08/20 07/08/20 Pantoprazole [Protonix] 40 mg PO DAILY 07/08/20 07/08/20 Previous Rx's Medication Instructions Recorded Cyclobenzaprine [Flexeril] 10 mg PO TID #15 tab 07/08/20 Allergies Allergy/AdvReac Type Severity Reaction Status Date / Time celecoxib [From Celebrex] Allergy Swelling Verified 07/08/20 22:30 Review of Systems ROS Statement: Those systems with pertinent positive or pertinent negative responses have been documented in the HPI. ROS Other: All systems not noted in ROS Statement are negative. Past Medical History Past Medical History: Hypertension, Osteoarthritis (OA), Sleep Apnea/CPAP/BIPAP Additional Past Medical History / Comment(s): uses cpap History of Any Multi-Drug Resistant Organisms: None Reported Past Surgical History: Hernia Repair, Joint Replacement, Orthopedic Surgery Additional Past Surgical History / Comment(s): BILAT HAND SX, RT FOOT SX X3, LT KNEE SX X 2, LT MARYELLEN, COLONOSCOPY, GRAPEFRUIT SIZED CYST REMOVED FROM TAILBONE AREA Past Anesthesia/Blood Transfusion Reactions: No Reported Reaction Past Psychological History: No Psychological Hx Reported Smoking Status: Former smoker Past Alcohol Use History: Occasional Past Drug Use History: Marijuana - Past Family History Mother Family Medical History: Cancer General Exam Limitations: no limitations General appearance: alert, in no apparent distress, other (This is well developed, well nourished adult male patient in no acute distress. Vital signs upon presentation are temperature 98.6F, pulse 71, respirations 18, blood pressure 138/84, pulse ox 98% on room air.) Neck exam: Present: tenderness (Right lateral neck tenderness), other (No cervical spinal tenderness. ). Absent: normal inspection, meningismus, full ROM (Decreased range of motion due to increased pain with movement.), lymphadenopathy Respiratory exam: Present: normal lung sounds bilaterally. Absent: respiratory distress, wheezes, rales, rhonchi, stridor Cardiovascular Exam: Present: regular rate, normal rhythm, normal heart sounds. Absent: systolic murmur, diastolic murmur, rubs, gallop, clicks Extremities exam: Present: normal inspection, full ROM, normal capillary refill, other (Skin to the upper extremity is pink, warm, dry. Cap refills less than 3 seconds. Radial pulses 2+.). Absent: tenderness, pedal edema, joint swelling, calf tenderness Neurological exam: Present: alert, oriented X3, CN II-XII intact, other (Strength in the upper extremities is 5/5.) Psychiatric exam: Present: normal affect, normal mood Skin exam: Present: warm, dry, intact, normal color. Absent: rash Course Vital Signs 07/08/20 07/08/20 21:22 22:32 Temperature 98.6 F 99.2 F Pulse Rate 71 70 Respiratory 18 18 Rate Blood Pressure 138/84 138/79 O2 Sat by Pulse 98 97 Oximetry Medical Decision Making - Medical Decision Making 65 year-old male patient presents to the emergency department for evaluation of right sided neck pain for the last two days, started on the left moved to the right. Physical examination does reveal tenderness over the right side of the neck at the neck/shoulder junction. Neurovascular status is intact. Strength in the upper extremities is 5/5. No imaging was performed as patient had no trauma. He did have MRI of the neck within the last week but has not heard results. He did come in via EMS, they did EKG and the rig and noticed PVCs. EKG was obtained while he was here and showed sinus rhythm with a first-degree AV block he has occasional PVCs. He will be discharged with prescription for muscle relaxer and given a starter pack. He is instructed to follow-up with his primary care physician and neurologist. Return parameters were discussed in detail. He verbalizes understanding and agrees with this plan. - EKG Data -: EKG Interpreted by Me EKG Comments: EKG obtained at 2127 shows sinus rhythm with first-degree AV block with occasional PVCs. Ventricular rate is 72, SD interval 216, QRS duration 96, QT 388, QTC 424. Disposition Clinical Impression: Neck pain Disposition: HOME SELF-CARE Condition: Good Instructions (If sedation given, give patient instructions): Cervical Strain (ED), Neck Pain (ED) Additional Instructions: Apply warm compresses to the right side of the neck. Perform gentle stretching and range of motion exercises. Take medications as directed. Follow-up with your primary care physician and neurologist for further evaluation as soon as possible. Return to the emergency department for any new, worsening, or concerning symptoms. Prescriptions: Cyclobenzaprine [Flexeril] 10 mg PO TID #15 tab Is patient prescribed a controlled substance at d/c from ED?: No Referrals: Edwin Reid MD [Primary Care Provider] - 1-2 days Time of Disposition: 22:39
== END 2020-07-08 23:00 | disposition home or self-care (01) ==
LOC: EC 21:20
DX: M54.2 Cervicalgia (principal); I49.3 Ventricular premature depolarization; I44.0 Atrioventricular block, first degree; I10 Essential (primary) hypertension; G47.30 Sleep apnea, unspecified; M19.90 Unspecified osteoarthritis, unspecified site; Z79.1 Long term (current) use of non-steroidal anti-inflammatories (NSAID); Z79.899 Other long term (current) drug therapy; Z87.891 Personal history of nicotine dependence; Z88.6 Allergy status to analgesic agent; Z99.89 Dependence on other enabling machines and devices; Z96.642 Presence of left artificial hip joint
CPT/HCPCS: 93005; 99284; 96374; 96375 ×2; J3360; J1170; J1885

== ENCOUNTER → 2020-08-01 | Outpatient (CLI) | payer OTHER ==
[2020-08-01 18:35] LABS: African American GFR (CKD) >90 (>60 ml/min/1.73 sqM); Blood Urea Nitrogen 18 mg/dL (9-20); Non-African American GFR(CKD) >90 (>60 ml/min/1.73 sqM)
--- NOTE | 2020-08-02 05:15 | CT ---
EXAMINATION TYPE: CT abdomen pelvis w con DATE OF EXAM: 08/01/2020 COMPARISON: None HISTORY: Lower abdominal pain. CT DLP: 2765.9 mGycm Automated exposure control for dose reduction was used. CONTRAST: Performed with IV Contrast, patient injected with 100ml mL of Isovue 300. Images obtained from the diaphragm to the floor the pelvis with IV contrast. There is oral contrast. Lung bases are clear of infiltrate. There is no pleural effusion. Heart size is normal. There is no p ericardial effusion. Liver spleen stomach pancreas gallbladder appear normal. Bile ducts are not dilated. There is no adrenal mass. Kidneys show satisfactory contrast opacification. There is no hydronephrosi s. Appendix is posterior and appears normal. There are multiple sigmoid diverticula. There is some mi nimal fat stranding in the posterior aspect of the proximal sigmoid colon. Bladder distends smoothly. There is no inguinal hernia. There is no free fluid in the pelvis. There is no ascites or free air. There is no bowel obstruction. There is metal artifact from right hip prosthesis. Lumbar vertebra appear intact. There is no jorge l jayleen fracture. I see no bony destructive process. IMPRESSION: There is some sigmoid diverticulosis. There is evidence for some minimal diverticulitis in the proxim al sigmoid colon. No drainable fluid collection. Normal appendix.
== END | disposition home or self-care (01) ==
LOC: RADCTMAIN 17:48
PROVIDERS: ATTEND Family Medicine
DX: K57.32 Diverticulitis of large intestine without perforation or abscess without bleeding (principal); K57.30 Diverticulosis of large intestine without perforation or abscess without bleeding
CPT/HCPCS: 82565; 84520; 74177; 36415; Q9967

== ENCOUNTER 2020-08-25 07:59 | Day surgery (SDC) | payer OTHER ==
[2020-08-23 16:26] VITALS: BMI 45.9
[~2020-08-25 07:59] MED LIST changes: -ACETAMINOPHEN TAB 500 MG TAB PO ONE; -DEXAMETHASONE SOD PHOSPHATE 10 MG/ML 1 ML VIAL IV ONE; +LACTATED RINGERS 1,000 ML IV SCH; +LIDOCAINE 1% (10MG/ML) FOR IV START INTRADERMA PRN; -LIDOCAINE 1% 20 ML VIAL (10MG/ML) FOR IV START INTRADERMA PRN; -MELOXICAM 7.5 MG TAB PO ONE; -ONDANSETRON 4 MG/2 ML VIAL IVP ONE; -TRANEXAMIC ACID 1,000 MG in SODIUM CHLORIDE 0.9% 100 ML IVPB ONE; -ceFAZolin 3 GM in SODIUM CHLORIDE 0.9% 100 ML IVPB ONE; -fentaNYL (PF) 50 MCG/ML 2 ML AMP IV PRN
[2020-08-25 08:31] VITALS: RESP 16; TEMP 97.9
[2020-08-25] MEDS ORDERED: LIDOCAINE 1% INJ 10MG/ML (20 ML MDV) ONE (09:30)
[2020-08-25] MEDS ORDERED: PROPOFOL 10 MG/ML 20 ML VIAL IV ONE (09:30)
--- NOTE | 2020-08-25 10:08 | P.PCN ---
Date of Procedure: 08/25/20 Description of Procedure: BRIEF HISTORY: Patient is a 65-year-old male presenting for outpatient colonoscopy for evaluation of diarrhea. Patient reports recent episode of diverticulitis. Previously he has a history of colon polyps. Last colonoscopy approximately in the year 1999. PROCEDURE PERFORMED: Colonoscopy with polypectomy. PREOPERATIVE DIAGNOSIS: Diarrhea, diverticulitis, history of colon polyps, last colonoscopy in 1999. ESTIMATED BLOOD LOSS: Minimal. IV sedation per Anesthesia. PROCEDURE: After informed consent was obtained, the patient, was brought into the endoscopy unit. IV sedation was administered by Anesthesia under continuous monitoring. Digital rectal examination was normal. Initially the Olympus CF-190 flexible video colonoscope was then inserted in the rectum, gradually advanced into the cecum without any difficulty. Careful examination was performed as the scope was gradually being withdrawn. Ileocecal valve and the appendiceal orifice were visualized and appeared normal. Prep was excellent. Mucosa of the cecum, ascending colon, transverse colon, descending colon, sigmoid colon, and rectum appeared normal, with multiple diverticula noted in the sigmoid colon. Patient had cold snare polypectomy of polyps measuring from 2-7 mm from the cecum, ascending colon, descending colon, sigmoid colon and rectum. Retroflexion was performed in the rectum and no lesions were seen, low-grade internal hemorrhoids seen. The patient tolerated the procedure well. IMPRESSION: Cold snare polypectomy of 5 polyps from the cecum, ascending colon, descending colon, sigmoid colon and rectum. Mild sigmoid diverticulosis. Internal hemorrhoids. RECOMMENDATIONS: Findings of this examination were discussed with the patient and his family. Okay to resume diet. Okay to resume medication. Await pathology from polypectomies. Recommend repeat colonoscopy in 3 years for colon polyps pending pathology from polypectomies
[2020-08-25] MEDS ORDERED: LACTATED RINGERS 1,000 ML IV ONE (10:10)
[2020-08-25 10:26] VITALS: BP 152/83; PULSE 66
== END 2020-08-25 10:50 | disposition home or self-care (01) ==
LOC: ORWHC2ENDO 07:59
PROVIDERS: ATTEND Internal Medicine
DX: Z87.891 Personal history of nicotine dependence (principal); D12.0 Benign neoplasm of cecum; D12.2 Benign neoplasm of ascending colon; K63.5 Polyp of colon; K62.1 Rectal polyp; K57.30 Diverticulosis of large intestine without perforation or abscess without bleeding; K64.8 Other hemorrhoids; Z86.010 Personal history of colon polyps; Z96.641 Presence of right artificial hip joint; Z98.42 Cataract extraction status, left eye; I10 Essential (primary) hypertension; G47.33 Obstructive sleep apnea (adult) (pediatric); Z99.89 Dependence on other enabling machines and devices; M19.90 Unspecified osteoarthritis, unspecified site; Z98.890 Other specified postprocedural states; Z79.52 Long term (current) use of systemic steroids; Z79.1 Long term (current) use of non-steroidal anti-inflammatories (NSAID); Z79.899 Other long term (current) drug therapy; Z88.6 Allergy status to analgesic agent
CPT/HCPCS: 88305; 45385; J2001; J2704

== ENCOUNTER 2020-11-21 09:34 | Emergency (ER) | payer OTHER ==
[2020-11-21 09:45] VITALS: RESP 18; TEMP 97.2
[2020-11-21] MEDS ORDERED: MORPHINE SULFATE 4 MG/ML SYRINGE IM STA (10:13)
[2020-11-21] MEDS ORDERED: CYCLOBENZAPRINE 10 MG TAB PO STA (10:16)
--- NOTE | 2020-11-21 10:25 | ED ---
Back Pain HPI - General Chief Complaint: Back Pain/Injury Stated Complaint: back pain Time Seen by Provider: 11/21/20 09:58 Source: patient, EMS, RN notes reviewed Limitations: no limitations - History of Present Illness Initial Comments: Patient is a 65-year-old male that presents to the emergency department via EMS with increased back pain. He notes that he does have a history of chronic back pain from life of playing any sports, par lifting and just general wear and tear. He notes that he does follow-up with a radiology specialist and is done several rounds of physical therapy and is currently getting a steroid injection series. He notes that his last injection was this past and he has 1 coming up this . He notes that he took a muscle relaxer before bed last night which allowed to sleep but woke up this morning with increased pain. He notes that he does get radicular symptoms down his right leg. He notes that usually he can walk it off a ride his bike to make it feel better but today it was increased from normal. He notes the pain is approximately a 9 out of 10 constant with no relief. He denied taking any pain medication at home. He den ied any chest pain shortness of breath headache nausea vomiting diarrhea constipation fever fatigue chills decreased range of motion or sensation down the right lower extremity. Patient can move his right lower extremity and his foot. - Related Data Home Medications Medication Instructions Recorded Confirmed Metoprolol Succinate (ER) [Toprol 25 mg PO DAILY 04/16/19 08/25/20 Xl] lisinopriL [Zestril] 20 mg PO DAILY 04/16/19 08/25/20 Diclofenac Sodium [Voltaren 4 gm TOPICAL QID PRN 07/08/20 08/25/20 Arthritis Pain 1% Gel] Hydrocortisone Lotion [Hytone 2.5% 1 applic TOPICAL DAILY 07/08/20 08/25/20 Lotion] Meloxicam 15 mg PO DAILY 07/08/20 08/25/20 Pantoprazole [Protonix] 40 mg PO DAILY 07/08/20 08/25/20 Previous Rx's Medication Instructions Recorded HYDROcodone/APAP 5-325MG [[place] 1 tab PO Q8HR PRN 7 Days #21 tab 11/21/20 5-325] Allergies Allergy/AdvReac Type Severity Reaction Status Date / Time celecoxib [From Celebrex] Allergy SORES IN Verified 11/21/20 09:45 MOUTH AND CLEEDING OF MOUTH Review of Systems ROS Statement: Those systems with pertinent positive or pertinent negative responses have been documented in the HPI. ROS Other: All systems not noted in ROS Statement are negative. Past Medical History Past Medical History: Hypertension, Osteoarthritis (OA), Sleep Apnea/CPAP/BIPAP Additional Past Medical History / Comment(s): uses cpap. PVC's, Chronic back pain History of Any Multi-Drug Resistant Organisms: None Reported Past Surgical History: Hernia Repair, Joint Replacement, Orthopedic Surgery Additional Past Surgical History / Comment(s): BILAT HAND SX, RT FOOT SX X3, LT KNEE SX X 2, TOTAL RIGHT HIP , COLONOSCOPY, GRAPEFRUIT SIZED CYST REMOVED FROM TAILBONE AREA, TOTAL LEFT KNEE, CATARACT LEFT EYE SURGERY Past Anesthesia/Blood Transfusion Reactions: No Reported Reaction Past Psychological History: No Psychological Hx Reported Smoking Status: Former smoker Past Alcohol Use History: Rare Past Drug Use History: Marijuana - Past Family History Mother Family Medical History: Cancer General Exam Limitations: no limitations General appearance: alert, in no apparent distress, obese Head exam: Present: atraumatic, normocephalic, normal inspection Eye exam: Present: normal appearance, PERRL, EOMI. Absent: scleral icterus, conjunctival injection, periorbital swelling Neck exam: Present: normal inspection Respiratory exam: Present: normal lung sounds bilaterally. Absent: respiratory distress, wheezes, rales, rhonchi, stridor Cardiovascular Exam: Present: regular rate, normal rhythm, normal heart sounds. Absent: systolic murmur, diastolic murmur, rubs, gallop, clicks GI/Abdominal exam: Present: soft, normal bowel sounds. Absent: distended, tenderness, guarding, rebound, rigid Extremities exam: Present: normal inspection, full ROM, normal capillary refill. Absent: tenderness, pedal edema, joint swelling, calf tenderness Back exam: Present: normal inspection, tenderness (Over the right SI). Absent: full ROM Neurological exam: Present: alert, oriented X3, CN II-XII intact Psychiatric exam: Present: normal affect, normal mood Skin exam: Present: warm, dry, intact, normal color. Absent: rash Course Vital Signs 11/21/20 09:39 Temperature 97.2 F L Pulse Rate 72 Respiratory 18 Rate Blood Pressure 155/92 O2 Sat by Pulse 93 L Oximetry Medical Decision Making - Medical Decision Making 65-year-old male complaining of chronic back pain does worsen over the last couple days. Notes that he needs symptom control until he has his follow-up appointment with his radiology specialist on . No imaging to be obtained due to chronic nature of patient's low back pain and sciatica. 4 mg of morphine, 10 mg of Flexeril ordered. Patient states that he follows up with neurology and spine right here in [place] Case discussed with Dr. Lynn, patient can discharge home with close follow- up to his radiology specialist and primary care. Disposition Clinical Impression: Mechanical back pain, Sciatica, Lumbar radiculopathy Disposition: HOME SELF-CARE Condition: Stable Instructions (If sedation given, give patient instructions): Acute Low Back Pain (ED) Additional Instructions: Please return to the Emergency Department if symptoms worsen or any other concerns. Take pain medication as prescribed. Avoid any strenuous activity or lifting. Follow-up with specialists and primary care service possible. Work note given Prescriptions: HYDROcodone/APAP 5-325MG [[place] 5-325] 1 tab PO Q8HR PRN 7 Days #21 tab PRN Reason: Pain Control Is patient prescribed a controlled substance at d/c from ED?: Yes When asked, does pt state using other controlled substances?: No If prescribed controlled substance>3 days was MAPS reviewed?: Yes If opioid is for acute pain is fill amount 7 days or less?: Yes If Rx opioid, was Start Talking consent form obtained?: Yes Referrals: Edwin Reid MD [Primary Care Provider] - 1-2 days Time of Disposition: 11:01
[2020-11-21 11:13] VITALS: BP 147/87; PULSE 82
== END 2020-11-21 11:13 | disposition home or self-care (01) ==
LOC: EC 09:34
DX: M54.16 Radiculopathy, lumbar region (principal); M54.30 Sciatica, unspecified side; I10 Essential (primary) hypertension; M19.90 Unspecified osteoarthritis, unspecified site; F12.90 Cannabis use, unspecified, uncomplicated; G47.33 Obstructive sleep apnea (adult) (pediatric); Z99.81 Dependence on supplemental oxygen; Z87.891 Personal history of nicotine dependence
CPT/HCPCS: 99283; 96372; J2270

== ENCOUNTER → 2021-01-25 | Outpatient (CLI) | payer OTHER ==
--- NOTE | 2021-01-25 11:48 | P.CONS ---
History of Present Illness - Reason for Consult Consult date: 01/25/21 - Chief Complaint Right leg pain - History of Present Illness This is a 65-year-old gentleman with chronic history of lower back pain with radiation to the right leg all the way down to his right foot with numbness and tingling going all the way down to the foot in no specific radicular distribution. The patient states that his right leg pain is more intense than his lower back pain. He failed to respond to physical therapy and unspecified steroid injections on his back. The pain gets worse by physical activity. It does not wake the patient up at night. He denies any bowel or bladder d ysfunction. He feels some weakness in the lower extremities bilaterally. The patient was referred to our clinic for a trial of transforaminal epidural steroid injection at the L4 5 and L5-S1 levels on the right side under fluoroscopic guidance. The patient states that taking Neurontin 800 mg gave him significant relief of pain however has stopped receiving this during his presence in [facility]. Past Medical History Past Medical History: Hypertension, Osteoarthritis (OA), Sleep Apnea/CPAP/BIPAP Additional Past Medical History / Comment(s): uses cpap. PVC's, Chronic back pain History of Any Multi-Drug Resistant Organisms: None Reported Past Surgical History: Hernia Repair, Joint Replacement, Orthopedic Surgery Additional Past Surgical History / Comment(s): BILAT HAND SX, RT FOOT SX X3, LT KNEE SX X 2, TOTAL RIGHT HIP , COLONOSCOPY, GRAPEFRUIT SIZED CYST REMOVED FROM TAILBONE AREA, TOTAL LEFT KNEE, CATARACT LEFT EYE SURGERY Past Anesthesia/Blood Transfusion Reactions: No Reported Reaction Smoking Status: Former smoker - Past Family History Mother Family Medical History: Cancer Medications and Allergies Home Medications Medication Instructions Recorded Confirmed Type Metoprolol Succinate (ER) [Toprol 25 mg PO DAILY 04/16/19 01/20/21 History Xl] Meloxicam 15 mg PO DAILY 07/08/20 01/20/21 History Cyclobenzaprine 1 tab PO TID PRN 01/20/21 History Lisinopril-Hctz 1 tab PO QAM 01/20/21 History Allergies Allergy/AdvReac Type Severity Reaction Status Date / Time celecoxib [From Celebrex] Allergy SORES IN Verified 01/20/21 14:19 MOUTH AND BLEEDING OF MOUTH Physical Exam Vitals: Vital Signs Temp Pulse Resp BP Pulse Ox 01/25/21 11:23 98.1 F 87 18 120/79 95 - EENT Eyes: PERRLA - Neurologic Neuro exam of the lower extremities showed areflexia bilaterally and symmetrically, normal muscle strength in the lower extremities bilaterally and symmetrically Positive straight leg raising test on the right side Mildly positive facet loading test on the lumbar area more on the right side than the left side Andi's test negative on the right side Neurologic: CNII-XII intact - Psychiatric Psychiatric: A&O x's 3, appropriate affect, intact judgment & insight Results Results: Lumbar spine MRI showed multiple levels of disc bulging and degenerative disc disease with mild facet arthropathy. 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 A small as as far as medical management I think starting Neurontin and gradually titrating the dose up may also help his pain. I thank Dr. Fields for the referral
== END ==
CPT/HCPCS: 99211

== ENCOUNTER → 2021-03-13 | Outpatient (CLI) | payer OTHER ==
[2021-03-13 10:42] VITALS: BP 114/81; PULSE 71; RESP 18
--- NOTE | 2021-03-13 11:12 | P.PN ---
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, created a lot of back problems for him but the intensity of the pain increased over the last 9 months, is constant and increased with any activity interference with the quality of life and associated with numbness and tingling sensation, he denies any motor deficit he denies any fever or night sweats, patient currently on multiple pain medication which is flexible, Mobic, and Neurontin 300 mg every 6 hours and he continued to have severe pain, has done physical therapy without any significant improvement and he continued to do home exercise, he is using a TENS unit and he continued to have pain Objective - Vital Signs Vital signs: Vital Signs Temp Pulse 71 03/13/21 10:28 Resp 18 03/13/21 10:28 BP 114/81 03/13/21 10:28 Pulse Ox 94 L 03/13/21 10:28 - Exam Physical Examinations : -Constitutiona : Cooperative , not in acute distress . -HEENT : nech : supple , no Lymphadenopathy , normal thyroid size . : eyes : no ptosis , no icterus, no photophobia . - neurologic : Cranial nerve II to XII intact , no focal neurological deffecit . -psychatric : alert , oriented X 3 , appropriate affect , intact judgment and insight . -Lymphatic : no Lymphadenopathy . - musculoskeltal : Lumber spine moter stegnth lower extremities ,thigh and legs 5/5 Right side , 5/5 Left side deep tendon reflexes : normal Knee Jerk , normal ankle Jerk lumber facet Loading Test =positive Right , positive Left Range of motion of the lumbar spine Flexion 30 degrees, extension 10 degrees strait leg raising test = positive at 30 degree right side and is negative on the left side Fabere test= positive Right , and negative LT . Sever tenderness over the Sacroiliac joint on the Right. MRI of the lumbar spine multilevel lumbar degenerative disc disease, lumbar spondylosis with lumbar facet arthropathy Assessment and Plan Plan: Assessment and plan=1-lumbar radiculopathy. 2-lumbar degenerative disc disease. Patient Failed physical therapy, and he failed medication therapy Patient could benefit from a right-sided transforaminal epidural steroid injection at L4 5 and L5-S1 Time with Patient: Less than 30
== END ==
LOC: PNWHC3 09:50
PROVIDERS: ATTEND Specialist
DX: M51.16 Intervertebral disc disorders with radiculopathy, lumbar region (principal); Z88.6 Allergy status to analgesic agent; Z87.891 Personal history of nicotine dependence
CPT/HCPCS: 99211

== ENCOUNTER 2021-03-28 12:36 | Day surgery (SDC) | payer OTHER ==
[2021-03-27 10:57] VITALS: BMI 45.9
[2021-03-28] MEDS ORDERED: LACTATED RINGERS 1,000 ML IV SCH (12:57)
[2021-03-28 13:08] VITALS: TEMP 97.5
[2021-03-28] MEDS ORDERED: MIDAZOLAM 2 MG/2 ML VIAL ONE (13:39)
[2021-03-28] MEDS ORDERED: fentaNYL (PF) 50 MCG/ML 2 ML AMP ONE (13:39)
[2021-03-28] MEDS ORDERED: methylPREDNISolone ACETATE 40 MG/ML 1 ML VIAL ONE (13:39)
[2021-03-28] MEDS ORDERED: IOPAMIDOL M200 10 ML VIAL ONE (13:39)
[2021-03-28] MEDS ORDERED: IV FLUID CONTINUATION 800 ML IV ONE (13:55)
[2021-03-28 13:56] VITALS: RESP 16
--- NOTE | 2021-03-28 13:56 | P.PCN ---
Date of Procedure: 03/28/21 Procedure(s) Performed: PREOPERATIVE DIAGNOSIS:1- Lumbar radiculopathy . 2- Lumbar Degenerative Disc Disease. 3-Lumbar Spondylosis POSTOPERATIVE DIAGNOSIS: Same as preoperative diagnoses. PROCEDURE 1. Transforaminal epidural steroid injection under fluoroscopic guidance at right L4-5 level. (Fluoroscopy images stored on file in the radiology Department ) 2. Lumbar epidurogram . ANESTHESIA: Local with 1% lidocaine 3 ml , moderate sedation with intravenous Versed 2 mg and fentanyle 50 micrograms. EBL: Minimal PROCEDURE INDICATION: The patient with low back pain and radiculopathy symptoms unresponsive to conservative treatment. PROCEDURE DESCRIPTION / TECHNIQUE: The patient was seen and identified in the preoperative area. Risks, benefits, complications, and alternatives were discussed with the patient. The patient agreed to proceed with the procedure and signed the consent. IV was started, and vital signs were stable. Patient was taken to the OR and time out was completed. The patient was placed in the prone position on procedure table and a pillow was placed under the abdomen to reduce lumbar lordosis. The lumbosacral area was prepped and draped in the usual sterile fashion. Critical pause was taken. Vital signs were closely monitored during the procedure. Conscious sedation was used during the procedure to decrease patient s anxiety. Using oblique fluoroscopy, the chin of the ``Sav dog at Right L4-5 level was identified, and the skin and deeper tissues just below was localized with 1% lidocaine. Subsequently, a 22-gauge 5-inch spinal needle was advanced under a tunneled view fluoroscopic guidance just underneath the chin of the `Ulicesy dog at the right L4-5 Under lateral fluoroscopy, the needle was then advanced to the posterior border of the interforaminal space. After negative aspiration of CSF and blood and with no paresthesias, 1 mL Isovue 200 contrast dye was injected excellent epidurogram and outlining of the nerve root Subsequently, 3 mL of block solution containing 80 mg Depo-Medrol and 2 mL of 0.9% normal saline PF was injected. Needle was removed . At the end of the procedure, skin was cleansed, and bandages were applied. COMPLICATIONS:none DISPOSITION / PLANS: The patient was placed in a supine position and transferred to the recovery area in a stable condition for observation. There was no evidence of lower extremity motor or sensory deficit after the procedure. Patient was discharged from the recovery room after meeting discharge criteria. Home discharge instructions were given to the patient by the staff. The patient was reexamined prior to discharge. Note = the Plane was to do Right Transforaminal epidural at L4-5 and L5-S1 ,But his insurance approved only one Level injections .
[2021-03-28 14:15] VITALS: BP 101/65; PULSE 65
--- NOTE | 2021-03-29 14:18 | FL ---
Fluoroscopy History: TRANSFORAMINAL EPI INJ 11SEC FL TIME
== END 2021-03-28 14:27 | disposition home or self-care (01) ==
LOC: ORPAIN 12:36
PROVIDERS: ATTEND Specialist
DX: M51.16 Intervertebral disc disorders with radiculopathy, lumbar region (principal); M47.26 Other spondylosis with radiculopathy, lumbar region
CPT/HCPCS: 64483; J2250; J1030; J3010; Q9966; 99152

== ENCOUNTER → 2021-04-26 | Outpatient (CLI) | payer OTHER ==
[2021-04-26 09:28] VITALS: BP 114/77; PULSE 76; RESP 18; TEMP 98.4
--- NOTE | 2021-04-26 10:05 | P.PN ---
Subjective Progress Note Date: 04/26/21 Ad is a 65-year-old male presented to clinic for follow-up evaluation after a transforaminal epidural steroid injection at L4 5. He reports for the first 2 weeks she had significant relief greater than 50% from that injection. However over time the pain is beginning to return. Most his pain is in his right buttock radiating down his right leg to his feet. He rates his pain as of 6 or 7 out of 10 at most times that were sits 10 out of 10. He reports his pain increases with excessive sitting excessive standing. Pain is relieved with riding his bike rest and medications. He would like move forward with a second transforaminal epidural steroid injection right-sided L4 5. Currently using Neurontin 600 mg 3 times a day. Denies any adverse effects or Locations from that medication. Over the past month he has completed his second round of physical therapy that offered him limited benefit. He denies any bowel or bladder dysfunction, saddle anesthesia, or any other red flag symptoms. Objective - Vital Signs Vital signs: Vital Signs Temp 98.4 F 04/26/21 09:21 Pulse 76 04/26/21 09:21 Resp 18 04/26/21 09:21 BP 114/77 04/26/21 09:21 Pulse Ox - Exam Physical Examinations : -Constitutiona : Cooperative , not in acute distress . -HEENT : nech : supple , no Lymphadenopathy , normal thyroid size . : eyes : no ptosis , no icterus, no photophobia . - neurologic : Cranial nerve II to XII intact , no focal neurological deffecit . -psychatric : alert , oriented X 3 , appropriate affect , intact judgment and insight . -Lymphatic : no Lymphadenopathy . - musculoskeltal : Lumber spine moter stegnth lower extremities ,thigh and legs 5/5 Right side , 5/5 Left side deep tendon reflexes : normal Knee Jerk , normal ankle Jerk lumber facet Loading Test =positive Right , positive Left Range of motion of the lumbar spine Flexion 20 degrees, extension 10 degrees strait leg raising test = positive at 10 degree Fabere test= able to perform secondary to pain Sever tenderness over the Sacroiliac joint on the Right Gaenslen test= not performed Seated flexion test= positive right ,and positive Left . Distraction test= positive bilaterally Sacroiliac compression test= negative Assessment and Plan Assessment: Assessment: Lumbar radiculopathy Plan: Patient did benefit from repeat right-sided lumbar epidural straight injection at L4 5 Continue Neurontin 600 mg 3 times a day - PQRS measures = - Patient's medications are documented in the chart. -Tobacco use is negative -Patient's has not received pneumococcal vaccine. -Advanced care planning discussed, patient not eligible. -Opiate contract signed. -Pain positive and follow-up visit/procedure is scheduled. -Patient's blood pressure measured [114/77 ] , and documented in the record ,and patient will follow up with the primary care. -Patient's weight was measured and body mass index above the normal limits and counseling was done. and patient instructed to follow-up with the primary care physician. -Patient was not identified as an unhealthy alcohol user Time with Patient: Less than 30
== END ==
LOC: PNWHC3 08:22
PROVIDERS: ATTEND Student in an Organized Health Care Education/Training Program
DX: M54.16 Radiculopathy, lumbar region (principal); Z87.891 Personal history of nicotine dependence; Z88.6 Allergy status to analgesic agent
CPT/HCPCS: 99211

== ENCOUNTER → 2021-07-05 | Outpatient (CLI) | payer OTHER ==
[2021-07-05 10:19] VITALS: BP 144/81; PULSE 66; RESP 18; TEMP 98.3
--- NOTE | 2021-07-05 12:04 | P.PN ---
<Sana Figueroa - Last Filed: 07/05/21 11:56> Subjective Progress Note Date: 07/05/21 Principal diagnosis: This is follow-up visit for this patient, a 66 yr old male with a history of severe and chronic low back pain secondary to lumbar degenerative disc diseases and lumbar spondylosis with facet arthropathy. Pain is currently a 2 /10 in intensity but goes as high as 6 /10 in intensity, is dull/ achy over the lumbar spine but radiates in a sharp/ shooting character towards the right hip and right knee. Pain is provoked by bending and twisting. Pain is alleviated with medications, heat, physical therapy (which he currently participates in), home based stretching regimen and massage therapy. Pt also uses a TENS unit at home with some relief. Patient is currently on Neurontin Patient denies any side effects of the medication(s), denies excessive drowsiness or sleepiness, denies suicidal ideation and reports that the current pain medication is helping to control the pain and improve activities of daily living. Patient denies any motor or sensory deficits. Patient denies any fever or night sweats, denies any change in the bowel movements or urination. Physical Examination: -Constitutional: Cooperative. Not in acute distress . -HEENT: Neck is supple. No lymphadenopathy. No thyromegaly. Normal thyroid size. Eyes: No ptosis , no icterus, no photophobia. ENT: No auditory deficits. Normal oropharynx. No Thrush. - Respiratory: Chest clear to auscultations bilaterally. No wheezing. No rhonchi. - Cardiovascular: Regular rate and rhythm. S1 / S2 , no S3 , no S4. - Gastrointestinal: Abdomen soft no tenderness. Bowel sounds positive in all four quadrants. No organomegaly. - Genitourinary: Deferred. - Neurologic: Cranial nerve II to XII intact. No focal neurological deficits. - Psychatric: Alert & oriented x 3. Matching mood & appropriate affect. Judgment and insight intact. - Lymphatic: No Lymphadenopathy. - Musculoskeletal: Cervical spine: Muscle bulk/ tone/ strength in the bilateral upper extremities n ormal. Facet loading test cervical area positive. Lumbar spine: Motor bulk/ tone/ strength lower extremities , thigh and legs : 5/5 Deep tendon reflexes : Normal Knee Jerk. Normal Ankle Jerk . Lumbar Facet Loading Test positive Straight Leg Raise: positive at 30 degree right side/ left side Vanessa test: positive right side / left side Range of motion: Flexion of the lumbar spine <90 degrees Range of motion: Extension of the lumbar spine <20 degrees Severe tenderness over the Sacroiliac joint: right side / left side Assessment and plan: Chronic low back pain secondary to lumbar degenerative disc disease , lumbar spondylosis with facet arthropathy without myelopathy Medication refilled Urine collected for UDS Chronic and current use of high-risk medication (Opioids). The patient was counseled about risk of opioid use, psychological risk associated with opioids and was orally counseled to not overuse , divert or sell medications. Pt is to store medication in a safe location. The patient is counseled against driving while using narcotic medications and also not to use alcohol or any illicit recreational drugs. Patient verbalized understanding that the lack of compliance will result in failure to renew narcotic prescription(s) as well as possible discharge from the clinic Diagnoses, prognosis and treatment options including but not limited to physical therapy, surgical interventions, interventional therapies and medication management including narcotics and adjuvant medication were discussed. All patient questions answered MAPS reviewed and it was appropriate. Prescription refill for Neurontin 600mg Q8h #90 with refill I have spent 31 minutes on patient care today. The time was used to review the medical records including relevant urine studies and Prescription history (MAPs), review of the available imaging, evaluation and examination of the patient, coordination of care with the medical staff and if applicable referring physicians, as well as creation of the medical record Objective - Vital Signs Vital signs: Vital Signs Temp 98.3 F 07/05/21 10:09 Pulse 66 07/05/21 10:09 Resp 18 07/05/21 10:09 BP 144/81 07/05/21 10:09 Pulse Ox 93 L 07/05/21 10:09 PQRS Measure Charge Sheet Mode of Arrival: Ambulatory - Pain Location Right Buttock Non-Pharmacological Interventions: Exercise, Heat, Home Exercise, Inactivity, Massage, Physical Therapy, Position/Reposition, TENS Unit Pharmacological Interventions: Epidural, Medication, Scheduled Medication PQRS Narrative: Smoking Status Former smoker Blood Pressure 144/81 Pain Intensity [Right Buttock] 3 Scale Used Numeric (1 - 10) Hx Alcohol Use (MH) No Home Medications: Ambulatory Orders Metoprolol Succinate (ER) [Toprol Xl] 25 mg PO DAILY 04/16/19 Meloxicam 15 mg PO DAILY 07/08/20 Lisinopril-Hctz 20-12.5 mg [Zestoretic 20-12.5] 1 tab PO BID 01/20/21 Gabapentin [Neurontin] 600 mg PO TID 03/08/21 amLODIPine [Norvasc] 5 mg PO DAILY 03/27/21 Pantoprazole [Protonix] 40 mg PO DAILY 07/03/21 <Tonja Sylvester - Last Filed: 07/10/21 08:43> Subjective I was available on the phone, during entire patient's visit Objective - Vital Signs Vital signs: Vital Signs Temp 98.3 F 07/05/21 10:09 Pulse 66 07/05/21 10:09 Resp 18 07/05/21 10:09 BP 144/81 07/05/21 10:09 Pulse Ox 93 L 07/05/21 10:09 PQRS Measure Charge Sheet PQRS Narrative: Smoking Status Former smoker Blood Pressure 144/81 Pain Intensity [Right Buttock] 3 Scale Used Numeric (1 - 10) Hx Alcohol Use (MH) No
== END ==
LOC: PNWHC3 09:50
PROVIDERS: ATTEND Specialist
DX: G89.29 Other chronic pain (principal); M51.36 Other intervertebral disc degeneration, lumbar region; M54.50 Low back pain, unspecified; M47.816 Spondylosis without myelopathy or radiculopathy, lumbar region; Z79.891 Long term (current) use of opiate analgesic; Z87.891 Personal history of nicotine dependence; Z88.6 Allergy status to analgesic agent; Z51.81 Encounter for therapeutic drug level monitoring
CPT/HCPCS: 80307; G0482; G0463; 99212

== ENCOUNTER → 2021-08-31 | Outpatient (CLI) | payer OTHER ==
--- NOTE | 2021-08-31 08:59 | P.PN ---
Subjective Progress Note Date: 08/31/21 Principal diagnosis: A 66 yr old male with a history of severe and chronic low back pain secondary to lumbar degenerative disc diseases and lumbar spondylosis with facet arthropathy presents today for medication refills. Pain level is 0 out of 10 currently but can escalate as high as 3 out of 10 with bending, twisting, standing for periods of 30 minutes or more. Pain is dull/ achy in the right aspect of his lower lumbar spine with radiation of pain to the right lateral hi p, and right lower extremity. He also has numbness of the right lower extremity toes. Pain is alleviated with medications, injections, physical therapy in the past, use of a TENS unit at home, stretching daily, repositioning and rest. Interventional pain procedures completed include R TFESI L4-L5 #2 Patient is currently on Neurontin 600mg #90 Patient denies any side effects of the medication(s), denies excessive drowsiness or sleepiness, denies suicidal ideation and reports that the current pain medication is helping to control the pain and improve activities of daily living. Patient denies any motor or sensory deficits. Patient denies any fever or night sweats, denies any change in the bowel movements or urination. Physical Examination: -Constitutional: Cooperative. Not in acute distress . -HEENT: Neck is supple. No lymphadenopathy. No thyromegaly. Normal thyroid size. Eyes: No ptosis , no icterus, no photophobia. ENT: No auditory deficits. Normal oropharynx. No Thrush. - Respiratory: Chest clear to auscultations bilaterally. No wheezing. No rhonchi. - Cardiovascular: Regular rate and rhythm. S1 / S2 , no S3 , no S4. - Gastrointestinal: Abdomen soft no tenderness. Bowel sounds positive in all four quadrants. No organomegaly. - Genitourinary: Deferred. - Neurologic: Cranial nerve II to XII intact. No focal neurological deficits. - Psychatric: Alert & oriented x 3. Matching mood & appropriate affect. Judgment and insight intact. - Lymphatic: No Lymphadenopathy. - Musculoskeletal: Cervical spine: Muscle bulk/ tone/ strength in the bilateral upper extremities normal. Facet loading test cervical area positive. Lumbar spine: Motor bulk/ tone/ strength lower extremities , thigh and legs : 5/5 Deep tendon reflexes : Normal Knee Jerk. Normal Ankle Jerk . Vertebral body tenderness to palpation over Lumbar Facet Loading Test positive over R L4-L5 Straight Leg Raise: positive at 30 degrees right side/ left side Gaenslen's Test positive Sacral spine : Severe tenderness over the Sacroiliac joint: right side / left side Range of motion: Flexion of the lumbar spine <60 degrees Range of motion: Extension of the lumbar spine <20 degrees Gaenslen's Test positive Vanessa test: positive right side / left side Assessment and plan: Chronic low back pain secondary to lumbar degenerative disc disease , lumbar spondylosis with facet arthropathy without myelopathy Chronic and current use of high-risk medication (Opioids). The patient was counseled about risk of opioid use, psychological risk associated with opioids and was orally counseled to not overuse , divert or sell medications. Pt is to store medication in a safe location. The patient is counseled against driving while using narcotic medications and also not to use alcohol or any illicit recreational drugs. Patient verbalized understanding that the lack of compliance will result in failure to renew narcotic prescription(s) as well as possible discharge from the clinic Diagnoses, prognosis and treatment options including but not limited to physical therapy, surgical interventions, interventional therapies and medication management including narcotics and adjuvant medication were discussed. All patient questions answered MAPS reviewed and it was appropriate. Urine collected for UDS today. Prescription refill for Neurontin 600 mg #90 with 1 refill I have spent 31 minutes on patient care today. Dr Sylvester was available by phone for the evaluation of this patient. The time was used to review the medical records including relevant urine studies and Prescription history (MAPs), review of the available imaging, evaluation and examination of the patient, coordination of care with the medical staff and if applicable referring physicians, as well as creation of the medical record PQRS Measure Charge Sheet PQRS Narrative: Smoking Status Former smoker Hx Alcohol Use (MH) No Home Medications: Ambulatory Orders Metoprolol Succinate (ER) [Toprol Xl] 25 mg PO DAILY 04/16/19 Meloxicam 15 mg PO DAILY 07/08/20 Lisinopril-Hctz 20-12.5 mg [Zestoretic 20-12.5] 1 tab PO BID 01/20/21 Gabapentin [Neurontin] 600 mg PO TID 03/08/21 amLODIPine [Norvasc] 5 mg PO DAILY 03/27/21 Pantoprazole [Protonix] 40 mg PO DAILY 07/03/21
[2021-08-31 10:01] VITALS: BP 111/81; PULSE 72; RESP 18; TEMP 97.9
== END ==
LOC: PNWHC3 08:09
PROVIDERS: ATTEND Physician Assistant Medical
DX: G89.29 Other chronic pain (principal); M51.36 Other intervertebral disc degeneration, lumbar region; M47.816 Spondylosis without myelopathy or radiculopathy, lumbar region; Z79.891 Long term (current) use of opiate analgesic; Z88.6 Allergy status to analgesic agent; Z87.891 Personal history of nicotine dependence
CPT/HCPCS: 80307; G0482; G0463; 99212

== ENCOUNTER → 2021-10-26 | Outpatient (CLI) | payer OTHER ==
[2021-10-26 08:16] VITALS: BP 121/74; PULSE 69; RESP 18; TEMP 98.7
--- NOTE | 2021-10-26 08:32 | P.PN ---
Subjective Progress Note Date: 10/26/21 Principal diagnosis: A 66 yr old male with a history of severe and chronic low back pain secondary to lumbar degenerative disc diseases and lumbar spondylosis with facet arthropathy presents today for medication refills. Pain level is 7 out of 10 in intensity, dull, achy in the mid and lower aspects of his lumbar spine without radiation of pain. Pain is provoked as high as 10 out of 10 without consumption of Neurontin or cannabis. Reviewed second UDS results from August 2021 which were also positive for THC as was patient's tox screen results from July 2021. Patient again refused to stop consuming cannabis and stated he will no longer, to this clinic. Pain is alleviated with medications, topicals, cannabis, physical therapy for 2 years, use of a TENS unit at home and rest. Interventional pain procedures completed include MARTA Patient is currently on Neurontin Patient denies any side effects of the medication(s), denies excessive drowsiness or sleepiness, denies suicidal ideation and reports that the current pain medication is helping to control the pain and improve activities of daily living. Patient denies any motor or sensory deficits. Patient denies any fever or night sweats, denies any change in the bowel movements or urination. Physical Examination: -Constitutional: Cooperative. Not in acute distress . -HEENT: Neck is supple. No lymphadenopathy. No thyromegaly. Normal thyroid size. Eyes: No ptosis , no icterus, no photophobia. ENT: No auditory deficits. Normal oropharynx. No Thrush. - Respiratory: Chest clear to auscultations bilaterally. No wheezing. No rhonchi. - Cardiovascular: Regular rate and rhythm. S1 / S2 , no S3 , no S4. - Gastrointestinal: Abdomen soft no tenderness. Bowel sounds positive in all four quadrants. No organomegaly. - Genitourinary: Deferred. - Neurologic: Cranial nerve II to XII intact. No focal neurological deficits. - Psychatric: Alert & oriented x 3. Matching mood & appropriate affect. Judgment and insight intact. - Lymphatic: No Lymphadenopathy. - Musculoskeletal: Cervical spine: Muscle bulk/ tone/ strength in the bilateral upper extremities normal. Facet loading test cervical area positive. Lumbar spine: Motor bulk/ tone/ strength lower extremities , thigh and legs : 5/5 Deep tendon reflexes : Normal Knee Jerk. Normal Ankle Jerk . Vertebral body tenderness to palpation over L4 Lumbar Facet Loading Test positive Straight Leg Raise: positive at 30 degrees right side/ left side Gaenslen's Test positive Sacral spine : Severe tenderness over the Sacroiliac joint: right side / left side Range of motion: Flexion of the lumbar spine <60 degrees Range of motion: Extension of the lumbar spine <20 degrees Gaenslen's Test positive Vanessa test: positive right side / left side Assessment and plan: Chronic low back pain secondary to lumbar degenerative disc disease , lumbar spondylosis with facet arthropathy without myelopathy Pt refused to discontinue Cannabis consumption and stated no other doctor's office has tested him for drugs except this clinic. Pt stated he will no longer come to this clinic as long as I do not prescribe Neurontin to him. All patient questions answered MAPS reviewed and it was appropriate. I have spent 31 minutes on patient care today. Dr Sylvester was available by phone for the evaluation of this patient. The time was used to review the medical records including relevant urine studies and Prescription history (MAPs), review of the available imaging, evaluation and examination of the patient, coordination of care with the medical staff and if applicable referring physicians, as well as creation of the medical record Objective - Vital Signs Vital signs: Vital Signs Temp 98.7 F 10/26/21 08:08 Pulse 69 10/26/21 08:08 Resp 18 10/26/21 08:08 BP 121/74 10/26/21 08:08 Pulse Ox 94 L 10/26/21 08:08 Intake & Output 10/25/21 10/26/21 10/26/21 18:59 06:59 18:59 Weight 142.882 kg PQRS Measure Charge Sheet Mode of Arrival: Ambulatory - Pain Location Right Buttock Non-Pharmacological Interventions: Inactivity Pharmacological Interventions: Scheduled Medication PQRS Narrative: Smoking Status Former smoker Narcotic Agreement Date Signed 03/13/21 Blood Pressure 121/74 Pain Intensity [Right Buttock] 0 Scale Used Numeric (1 - 10) Hx Alcohol Use (MH) No Home Medications: Ambulatory Orders Metoprolol Succinate (ER) [Toprol Xl] 25 mg PO DAILY 04/16/19 Meloxicam 15 mg PO DAILY 07/08/20 Lisinopril-Hctz 20-12.5 mg [Zestoretic 20-12.5] 1 tab PO BID 01/20/21 amLODIPine [Norvasc] 5 mg PO DAILY 03/27/21 Pantoprazole [Protonix] 40 mg PO DAILY 07/03/21 Gabapentin [Neurontin] 600 mg PO TID 30 Days #90 cap 08/31/21
== END ==
LOC: PNWHC3 07:46
PROVIDERS: ATTEND Specialist
DX: M51.36 Other intervertebral disc degeneration, lumbar region (principal); M47.816 Spondylosis without myelopathy or radiculopathy, lumbar region; G89.29 Other chronic pain; Z87.891 Personal history of nicotine dependence; Z88.6 Allergy status to analgesic agent
CPT/HCPCS: 99211

== ENCOUNTER 2022-01-22 06:20 | Day surgery (SDC) | payer OTHER ==
[2022-01-19 10:30] VITALS: BMI 46.1
[~2022-01-22 06:20] MED LIST changes: +ACETAMINOPHEN TAB 500 MG TAB PO PRN; +HEPARIN SODIUM,PORCINE/PF 5,000 UNIT/0.5 ML SYRINGE SQ PRN; -LACTATED RINGERS 1,000 ML IV SCH; -LIDOCAINE 1% (10MG/ML) FOR IV START INTRADERMA PRN; +Pre Op ABX Message 1 EACH MISC MISCELLANE ONE
[2022-01-22] MEDS ORDERED: ONDANSETRON 4 MG/2 ML VIAL ONE (07:44)
[2022-01-22] MEDS ORDERED: LACTATED RINGERS 1,000 ML IV ONE (07:48)
[2022-01-22] MEDS ORDERED: LIDOCAINE 2% INJ 20 MG/ML (2 ML VIAL) ONE (07:50)
[2022-01-22] MEDS ORDERED: PROPOFOL 10 MG/ML 20 ML VIAL IV ONE (07:50)
[2022-01-22] MEDS ORDERED: fentaNYL (PF) 50 MCG/ML 2 ML AMP ONE (07:50)
[2022-01-22] MEDS ORDERED: SUCCINYLCHOLINE CHLORIDE 100 MG/5 ML SYR IV ONE (07:50)
[2022-01-22] MEDS ORDERED: MIDAZOLAM 2 MG/2 ML VIAL ONE (07:50)
[2022-01-22] MEDS ORDERED: HEPARIN SODIUM,PORCINE 5,000 UNIT/ML 1 ML VIAL SQ ONE (07:53)
[2022-01-22] MEDS ORDERED: DEXAMETHASONE SOD PHOSPHATE 4 MG/ML 1 ML VIAL IVP ONE (07:54)
[2022-01-22] MEDS ORDERED: ONDANSETRON 4 MG/2 ML VIAL IVP ONE (07:54)
--- NOTE | 2022-01-22 08:10 | P.GSHP ---
History of Present Illness H&P Date: 01/22/22 Chief Complaint: Right thigh lipoma Is a 66-year-old male presents today for excision of right thigh lipoma. Patient developed a tender mass on his right medial mid thigh. Mastoid approximate 3 cm diameter. Past Medical History Past Medical History: Hypertension, Osteoarthritis (OA), Sleep Apnea/CPAP/BIPAP Additional Past Medical History / Comment(s): Uses CPAP. PVC's, Chronic back pain. History of Any Multi-Drug Resistant Organisms: None Reported Past Surgical History: Hernia Repair, Joint Replacement, Orthopedic Surgery Additional Past Surgical History / Comment(s): SHANDA HAND SX, RT FOOT SX X3 bone spurs, left knee arthroscopy, left knee replacement, TOTAL RIGHT HIP, COLONOSCOPY, GRAPEFRUIT SIZED CYST REMOVED FROM TAILBONE AREA, shanda CATARACT EYE SURGERY. Past Anesthesia/Blood Transfusion Reactions: No Reported Reaction Smoking Status: Former smoker - Past Family History Mother Family Medical History: Cancer Sister(s) Family Medical History: Cancer Medications and Allergies Home Medications Medication Instructions Recorded Confirmed Type Metoprolol Succinate (ER) [Toprol 25 mg PO DAILY 04/16/19 01/22/22 History Xl] Meloxicam 15 mg PO DAILY 07/08/20 01/22/22 History Lisinopril-Hctz 20-12.5 mg 1 tab PO BID 01/20/21 01/22/22 History [Zestoretic 20-12.5] amLODIPine [Norvasc] 5 mg PO DAILY 03/27/21 01/22/22 History Pantoprazole [Protonix] 40 mg PO DAILY 07/03/21 01/22/22 History Gabapentin [Neurontin] 600 mg PO TID 30 Days #90 cap 08/31/21 01/22/22 Rx Allergies Allergy/AdvReac Type Severity Reaction Status Date / Time celecoxib [From Celebrex] Allergy SORES IN Verified 01/22/22 07:24 MOUTH AND BLEEDING OF MOUTH Surgical - Exam Vital Signs Temp Pulse Resp BP Pulse Ox 97.0 F L 65 16 135/63 96 01/22/22 07:21 01/22/22 07:21 01/22/22 07:21 01/22/22 07:21 01/22/22 07:21 - General well developed, well nourished - Eyes PERRL - ENT normal pinna - Neck no masses - Respiratory normal expansion - Cardiovascular Rhythm: regular - Abdomen Abdomen: soft, non tender - Integumentary 3 cm lipoma located on medial right thigh Assessment and Plan Assessment: Right thigh lipoma. We'll perform excision
[2022-01-22] MEDS ORDERED: BUPIVACAIN-EPI 0.25%-1:200,000 30 ML VIAL SQ ONE ×2 (08:17→08:30)
[2022-01-22 08:21] LABS: African American GFR (CKD) >90 (>60 ml/min/1.73 sqM); Anion Gap 3 mmol/L; Blood Urea Nitrogen 17 mg/dL (9-20); Calcium 8.6 mg/dL (8.4-10.2); Carbon Dioxide 31 mmol/L (22-30); Chloride 101 mmol/L (98-107); Glucose 117 mg/dL (74-99); Non-African American GFR(CKD) >90 (>60 ml/min/1.73 sqM); Sodium 135 mmol/L (137-145)
[2022-01-22] MEDS ORDERED: SODIUM CHLORIDE 0.9% 50 ML with ceFAZolin 2,000 MG IV ONE ×2 (08:25)
[2022-01-22 09:01] VITALS: TEMP 96.9
[2022-01-22 09:52] VITALS: BP 107/68; PULSE 60; RESP 16
--- NOTE | 2022-01-25 20:13 | P.OP ---
Date of Procedure: 01/22/22 Preoperative Diagnosis: Right thigh lipoma Postoperative Diagnosis: Right thigh lipoma Procedure(s) Performed: Excision of right thigh lipoma Anesthesia: VALERIA Surgeon: Shayan Cannon Estimated Blood Loss (ml): 5 Pathology: other (Right thigh lipoma) Condition: stable Disposition: PACU Description of Procedure: Patient's placed on the operating table in supine position. His right thigh was prepped and draped usual fashion. The thigh lipoma was on the medial aspect of the mid thigh. The skin was incised over this using blunt and sharp dissection with cautery the thigh lipoma was excised. Skin was closed with interrupted 3-0 Monocryl suture. Dermabond was applied. 1% local Xylocaine was placed. Patient top she will well.
== END 2022-01-22 10:05 | disposition home or self-care (01) ==
LOC: OR 06:20
PROVIDERS: ATTEND Surgery
DX: D17.23 Benign lipomatous neoplasm of skin and subcutaneous tissue of right leg (principal); I10 Essential (primary) hypertension; M19.90 Unspecified osteoarthritis, unspecified site; G89.29 Other chronic pain; M54.9 Dorsalgia, unspecified; I49.3 Ventricular premature depolarization; G47.33 Obstructive sleep apnea (adult) (pediatric); K21.9 Gastro-esophageal reflux disease without esophagitis; E66.01 Morbid (severe) obesity due to excess calories; Z68.42 Body mass index [BMI] 45.0-49.9, adult; Z79.899 Other long term (current) drug therapy; Z88.8 Allergy status to other drugs, medicaments and biological substances; Z98.890 Other specified postprocedural states; Z96.652 Presence of left artificial knee joint; Z96.641 Presence of right artificial hip joint; Z98.42 Cataract extraction status, left eye; Z98.41 Cataract extraction status, right eye; Z87.891 Personal history of nicotine dependence; Z80.9 Family history of malignant neoplasm, unspecified
CPT/HCPCS: 88304; 80048; 11403; J2250; J1644; J1100; J2405; J0690; J3010; J0330; J2704; J2001

== ENCOUNTER 2022-03-10 06:35 | Emergency (ER) | payer OTHER ==
[2022-03-10 06:52] VITALS: TEMP 97.8
[2022-03-10] MEDS ORDERED: DIPH,PERTUS(ACELL)TETVAC-LF 0.5 ML VIAL IM ONE (07:31)
[2022-03-10] MEDS ORDERED: BACITRACIN OINT 1 EACH PACKET TOPICAL ONE (07:31)
--- NOTE | 2022-03-10 07:52 | XR ---
EXAMINATION TYPE: XR hand complete RT DATE OF EXAM: 03/10/2022 7:44 AM INDICATION: Patient age:Male; 66 years old; Reason for study: pain, laceration; COMPARISON: None TECHNIQUE: Frontal, lateral and oblique views of the right hand were obtained. FINDINGS: Normal alignment of the visualized joints. No acute osseous pathology is identified. No e vidence of soft tissue swelling. No radiopaque foreign bodies. IMPRESSION: 1. No acute osseous pathology. 2. No evidence of radiopaque foreign body.
--- NOTE | 2022-03-10 07:59 | ED ---
General Adult HPI - General Chief complaint: Wound/Laceration Stated complaint: Fall, right hand laceration Time Seen by Provider: 03/10/22 07:13 Source: patient, RN notes reviewed Mode of arrival: ambulatory Limitations: no limitations - History of Present Illness Initial comments: This a 66-year-old male presents emergency Department chief complaint right hand injury. Patient states that he was neurovascular this morning when he tripped, fell over some bricks and injured his right hand. He states his perfusion was right thumb he is unsure when his last tetanus was. Patient has an abrasion to his right hand is unsure when her last tetanus was. Patient denies any head injury no loss conscious no other injuries fall. - Related Data Home Medications Medication Instructions Recorded Confirmed Metoprolol Succinate (ER) [Toprol 25 mg PO DAILY 04/16/19 01/22/22 Xl] Meloxicam 15 mg PO DAILY 07/08/20 01/22/22 Lisinopril-Hctz 20-12.5 mg 1 tab PO BID 01/20/21 01/22/22 [Zestoretic 20-12.5] amLODIPine [Norvasc] 5 mg PO DAILY 03/27/21 01/22/22 Pantoprazole [Protonix] 40 mg PO DAILY 07/03/21 01/22/22 Previous Rx's Medication Instructions Recorded Gabapentin [Neurontin] 600 mg PO TID 30 Days #90 cap 08/31/21 Allergies Allergy/AdvReac Type Severity Reaction Status Date / Time celecoxib [From Celebrex] Allergy SORES IN Verified 03/10/22 06:52 MOUTH AND BLEEDING OF MOUTH Review of Systems ROS Statement: Those systems with pertinent positive or pertinent negative responses have been documented in the HPI. ROS Other: All systems not noted in ROS Statement are negative. Past Medical History Past Medical History: Hypertension, Osteoarthritis (OA), Sleep Apnea/CPAP/BIPAP Additional Past Medical History / Comment(s): Uses CPAP. PVC's, Chronic back pain. History of Any Multi-Drug Resistant Organisms: None Reported Past Surgical History: Hernia Repair, Joint Replacement, Orthopedic Surgery Additional Past Surgical History / Comment(s): SHANDA HAND SX, RT FOOT SX X3 bone spurs, left knee arthroscopy, left knee replacement, TOTAL RIGHT HIP, COLONOSCOPY, GRAPEFRUIT SIZED CYST REMOVED FROM TAILBONE AREA, shanda CATARACT EYE SURGERY. Past Anesthesia/Blood Transfusion Reactions: No Reported Reaction Past Psychological History: No Psychological Hx Reported Smoking Status: Former smoker - Past Family History Mother Family Medical History: Cancer Sister(s) Family Medical History: Cancer General Exam Limitations: no limitations General appearance: alert, in no apparent distress Head exam: Present: atraumatic, normocephalic, normal inspection Neck exam: Present: normal inspection, full ROM. Absent: tenderness, meningismus, lymphadenopathy Respiratory exam: Present: normal lung sounds bilaterally. Absent: respiratory distress, wheezes, rales, rhonchi, stridor Cardiovascular Exam: Present: regular rate, normal rhythm, normal heart sounds. Absent: systolic murmur, diastolic murmur, rubs, gallop, clicks Extremities exam: Present: other (Right ulnar aspect of the thenar eminence there is skin tear, flat, no deep laceration noted there is some dirt within the wound patient's full range of motion) Course Vital Signs 03/10/22 06:47 Temperature 97.8 F Pulse Rate 69 Respiratory 20 Rate Blood Pressure 133/80 O2 Sat by Pulse 96 Oximetry Medical Decision Making - Medical Decision Making X-rays negative for acute fracture. Patient has right hand skin tear, abrasion there is no prior sutures patient's tetanus updated and wound was cleaned bacitracin applied. Disposition Clinical Impression: Abrasion of right hand Disposition: HOME SELF-CARE Condition: Stable Instructions (If sedation given, give patient instructions): Abrasion (ED) Additional Instructions: Please return to the Emergency Department if symptoms worsen or any other concerns. Is patient prescribed a controlled substance at d/c from ED?: No Referrals: Edwin Reid MD [Primary Care Provider] - 1-2 days Time of Disposition: 07:58
[2022-03-10 08:25] VITALS: BP 142/82; PULSE 66; RESP 18
== END 2022-03-10 08:25 | disposition home or self-care (01) ==
LOC: EC 06:35
DX: S60.511A Abrasion of right hand, initial encounter (principal); I10 Essential (primary) hypertension; Z99.89 Dependence on other enabling machines and devices; Z87.891 Personal history of nicotine dependence; Z23 Encounter for immunization; W01.0XXA Fall on same level from slipping, tripping and stumbling without subsequent striking against object, initial encounter
CPT/HCPCS: 90471; 90715; 99284

== ENCOUNTER 2022-04-14 22:56 | Emergency (ER) | payer OTHER ==
[2022-04-14 23:06] VITALS: TEMP 98.1
--- NOTE | 2022-04-14 23:28 | XR ---
EXAMINATION TYPE: XR chest 2V DATE OF EXAM: 04/14/2022 COMPARISON: NONE HISTORY: Short of breath TECHNIQUE: 2 views FINDINGS: Heart is normal. Costophrenic angles are clear. There are no hilar masses. The bony thorax is intact. Thoracic spine is intact IMPRESSION: No active cardiopulmonary disease.
[2022-04-15] MEDS ORDERED: methylPREDNISolone SOD SUCCI 125 MG/2 ML VIAL IV STA (00:59)
[2022-04-15] MEDS ORDERED: IPRATROPIUM-ALBUTEROL 3 ML NEB INHALATION STA (01:00)
[2022-04-15] MEDS ORDERED: ACETAMINOPHEN TAB 500 MG TAB PO STA (01:01)
--- NOTE | 2022-04-15 01:03 | ED ---
SOB HPI - General Chief Complaint: Shortness of Breath Stated Complaint: Shortness of Breath Time Seen by Provider: 04/15/22 00:52 Source: patient, RN notes reviewed Mode of arrival: wheelchair Limitations: no limitations - History of Present Illness Initial Comments: This is a pleasant 66-year-old male who comes the ER complaining of several days of cough. Patient states he coughed yesterday and started getting sharp pain in his right rib area. Patient believes he injured his ribs. Patient states he was exposed to family members who have respiratory symptoms. Patient states that he believes he caught a respiratory illness from them. He states he was diagnosed with bronchitis by his primary care doctor. He has been on antibiotics for 4 days. Patient here for right rib pain and shortness of breath. Vision states she took an [id number] COVID-19 test which was negative. No headache, no fever or chills, no changes in vision or hearing, no sore throat or difficulty with speech, no neck pain,no abdominal pain, no nausea or vomitin g, no changes in urination or bowel movements, no numbness or tingling, no extremity pain, no skin rashes or lesions. Past medical, surgical, social, and family history reviewed. MD Complaint: shortness of breath, cough - Related Data Home Medications Medication Instructions Recorded Confirmed Metoprolol Succinate (ER) [Toprol 25 mg PO DAILY 04/16/19 01/22/22 Xl] Meloxicam 15 mg PO DAILY 07/08/20 01/22/22 Lisinopril-Hctz 20-12.5 mg 1 tab PO BID 01/20/21 01/22/22 [Zestoretic 20-12.5] amLODIPine [Norvasc] 5 mg PO DAILY 03/27/21 01/22/22 Pantoprazole [Protonix] 40 mg PO DAILY 07/03/21 01/22/22 Previous Rx's Medication Instructions Recorded Gabapentin [Neurontin] 600 mg PO TID 30 Days #90 cap 08/31/21 Albuterol Inhaler [Ventolin Hfa 2 puff INHALATION Q4HR PRN #1 each 04/15/22 Inhaler] predniSONE 50 mg PO DAILY #5 tab 04/15/22 Allergies Allergy/AdvReac Type Severity Reaction Status Date / Time celecoxib [From Celebrex] Allergy SORES IN Verified 03/10/22 06:52 MOUTH AND BLEEDING OF MOUTH Review of Systems ROS Statement: Those systems with pertinent positive or pertinent negative responses have been documented in the HPI. ROS Other: All systems not noted in ROS Statement are negative. Past Medical History Past Medical History: Hypertension, Osteoarthritis (OA), Sleep Apnea/CPAP/BIPAP Additional Past Medical History / Comment(s): Uses CPAP. PVC's, Chronic back pain. History of Any Multi-Drug Resistant Organisms: None Reported Past Surgical History: Hernia Repair, Joint Replacement, Orthopedic Surgery Additional Past Surgical History / Comment(s): SHANDA HAND SX, RT FOOT SX X3 bone spurs, left knee arthroscopy, left knee replacement, TOTAL RIGHT HIP, COLONOSCOPY, GRAPEFRUIT SIZED CYST REMOVED FROM TAILBONE AREA, shanda CATARACT EYE SURGERY. Past Anesthesia/Blood Transfusion Reactions: No Reported Reaction Past Psychological History: No Psychological Hx Reported Smoking Status: Former smoker - Past Family History Mother Family Medical History: Cancer Sister(s) Family Medical History: Cancer General Exam Limitations: no limitations General appearance: alert, in distress, obese Head exam: Present: atraumatic, normocephalic, normal inspection Eye exam: Present: normal appearance, PERRL, EOMI. Absent: scleral icterus, conjunctival injection, periorbital swelling ENT exam: Present: normal exam, normal oropharynx, mucous membranes dry, mucous membranes moist, normal external ear exam Neck exam: Present: normal inspection, full ROM. Absent: tenderness, meningismus, lymphadenopathy Respiratory exam: Present: wheezes, prolonged expiratory. Absent: normal lung sounds bilaterally, respiratory distress, rales, rhonchi, stridor, chest wall te nderness, accessory muscle use, decreased breath sounds Cardiovascular Exam: Present: regular rate, normal rhythm, normal heart sounds. Absent: systolic murmur, diastolic murmur, rubs, gallop, clicks GI/Abdominal exam: Present: soft, normal bowel sounds. Absent: distended, tenderness, guarding, rebound, rigid Extremities exam: Present: normal inspection, full ROM, normal capillary refill. Absent: tenderness, pedal edema, joint swelling, calf tenderness Back exam: Present: normal inspection Neurological exam: Present: alert, oriented X3, CN II-XII intact Psychiatric exam: Present: normal affect, normal mood Skin exam: Present: warm, dry, intact, normal color. Absent: rash Course Vital Signs 04/14/22 04/15/22 04/15/22 23:02 01:26 01:36 Temperature 98.1 F Pulse Rate 89 90 92 Respiratory 22 Rate Blood Pressure 133/78 O2 Sat by Pulse 96 Oximetry - Reevaluation(s) Reevaluation #1: 04/15/22 03:56 Medical record is reviewed Symptoms are improved here in the emergency department Patient is informed of results and questions answered Patient in no distress Medical Decision Making - Medical Decision Making Patient reevaluated and was much improved after initial breathing treatment. Patient also received an IV dose of corticosteroids. Patient's d-dimer was mildly elevated. Therefore a computed tomography scan was ordered to rule out pulmonary embolism which was normal. Patient will be treated with corticostero ids and inhalers. Patient told to follow-up with his regular doctor. We'll have the patient finish his antibiotic which was prescribed by his regular physician. Patient voiced understanding of all instructions. Patient in no distress at discharge. SpO2 on room air is 98%. Patient was told to return to the ER for any signs or symptoms worsen. Told to return immediately if any other problems arise. All questions answered. Treatment plan discussed. Patient in agreement Every effort has been made to ensure accuracy of this dictation. However, due to the limitations of electronic medical records and dictation devices, errors in charting still occur. The case was discussed in detail with ED attending physician. Presentation, findings, treatment plan discussed in detail. Patient reevaluated and was much improved after initial breathing treatment. Patient also received an IV dose of corticosteroids. Patient's d-dimer was mildly elevated. Therefore a computed tomography scan was ordered to rule out pulmonary embolism which was normal. Patient will be treated with corticosteroids and inhalers. Patient told to follow-up with his regular doctor. We'll have the patient finish his antibiotic which was prescribed by his regular physician. Patient voiced understanding of all instructions. Patient in no distress at discharge. SpO2 on room air is 98%. - Lab Data Result diagrams: 04/15/22 01:59 04/15/22 01:59 Lab Results 04/15/22 04/15/22 04/15/22 Range/Units 01:59 01:59 01:59 WBC 8.9 (3.8-10.6) k/uL RBC 5.09 (4.30-5.90) m/uL Hgb 14.6 (13.0-17.5) gm/dL Hct 44.7 (39.0-53.0) % MCV 87.7 (80.0-100.0) fL MCH 28.7 (25.0-35.0) pg MCHC 32.7 (31.0-37.0) g/dL RDW 12.5 (11.5-15.5) % Plt Count 184 (150-450) k/uL MPV 7.4 Neutrophils % 71 % Lymphocytes % 18 % Monocytes % 7 % Eosinophils % 1 % Basophils % 0 % Neutrophils # 6.3 (1.3-7.7) k/uL Lymphocytes # 1.6 (1.0-4.8) k/uL Monocytes # 0.6 (0-1.0) k/uL Eosinophils # 0.1 (0-0.7) k/uL Basophils # 0.0 (0-0.2) k/uL D-Dimer 0.63 H (<0.60) mg/L FEU Sodium 134 L (137-145) mmol/L Potassium 4.0 (3.5-5.1) mmol/L Chloride 95 L (98-107) mmol/L Carbon Dioxide 27 (22-30) mmol/L Anion Gap 12 mmol/L BUN 21 H (9-20) mg/dL Creatinine 0.76 (0.66-1.25) mg/dL Est GFR (CKD-EPI)AfAm >90 (>60 ml/min/1.73 sqM) Est GFR (CKD-EPI)NonAf >90 (>60 ml/min/1.73 sqM) Glucose 143 H (74-99) mg/dL Calcium 9.0 (8.4-10.2) mg/dL Total Bilirubin 0.7 (0.2-1.3) mg/dL AST 36 (17-59) U/L ALT 36 (4-49) U/L Alkaline Phosphatase 100 (38-126) U/L Troponin I (0.000-0.034) ng/mL NT-Pro-B Natriuret Pep pg/mL Total Protein 7.2 (6.3-8.2) g/dL Albumin 4.4 (3.5-5.0) g/dL Coronavirus (PCR) (Not Detectd) 04/15/22 04/15/22 04/15/22 Range/Units 01:59 01:59 01:59 WBC (3.8-10.6) k/uL RBC (4.30-5.90) m/uL Hgb (13.0-17.5) gm/dL Hct (39.0-53.0) % MCV (80.0-100.0) fL MCH (25.0-35.0) pg MCHC (31.0-37.0) g/dL RDW (11.5-15.5) % Plt Count (150-450) k/uL MPV Neutrophils % % Lymphocytes % % Monocytes % % Eosinophils % % Basophils % % Neutrophils # (1.3-7.7) k/uL Lymphocytes # (1.0-4.8) k/uL Monocytes # (0-1.0) k/uL Eosinophils # (0-0.7) k/uL Basophils # (0-0.2) k/uL D-Dimer (<0.60) mg/L FEU Sodium (137-145) mmol/L Potassium (3.5-5.1) mmol/L Chloride (98-107) mmol/L Carbon Dioxide (22-30) mmol/L Anion Gap mmol/L BUN (9-20) mg/dL Creatinine (0.66-1.25) mg/dL Est GFR (CKD-EPI)AfAm (>60 ml/min/1.73 sqM) Est GFR (CKD-EPI)NonAf (>60 ml/min/1.73 sqM) Glucose (74-99) mg/dL Calcium (8.4-10.2) mg/dL Total Bilirubin (0.2-1.3) mg/dL AST (17-59) U/L ALT (4-49) U/L Alkaline Phosphatase (38-126) U/L Troponin I <0.012 (0.000-0.034) ng/mL NT-Pro-B Natriuret Pep 54 pg/mL Total Protein (6.3-8.2) g/dL Albumin (3.5-5.0) g/dL Coronavirus (PCR) Not Detected (Not Detectd) - Radiology Data Radiology results: report reviewed, image reviewed Disposition Clinical Impression: Bronchospasm with bronchitis, acute Disposition: HOME SELF-CARE Condition: Good Instructions (If sedation given, give patient instructions): Acute Bronchitis (ED), Bronchospasm (ED) Additional Instructions: Follow-up with your regular physician as directed. Return to the ER immediately if any symptoms worsen, new symptoms arise, or any other problems develop. Prescriptions: predniSONE 50 mg PO DAILY #5 tab Albuterol Inhaler [Ventolin Hfa Inhaler] 2 puff INHALATION Q4HR PRN #1 each PRN Reason: Wheezing Is patient prescribed a controlled substance at d/c from ED?: No Referrals: Edwin Reid MD [Primary Care Provider] - 1-2 days Time of Disposition: 03:51
[2022-04-15 02:07] LABS: Basophils % (A) 0 %; Eosinophils # (A) 0.1 k/uL (0-0.7); Eosinophils % (A) 1 %; HCT 44.7 % (39.0-53.0); HGB 14.6 gm/dL (13.0-17.5); Lymphocytes # (A) 1.6 k/uL (1.0-4.8); Lymphocytes % (A) 18 %; MCH 28.7 pg (25.0-35.0); MCHC 32.7 g/dL (31.0-37.0); MCV 87.7 fL (80.0-100.0); Mean Platelet Volume 7.4; Monocytes # (A) 0.6 k/uL (0-1.0); Monocytes % (A) 7 %; Neutrophils # (A) 6.3 k/uL (1.3-7.7); Neutrophils % (A) 71 %; Platelet Count 184 k/uL (150-450); RBC 5.09 m/uL (4.30-5.90); RDW 12.5 % (11.5-15.5); WBC 8.9 k/uL (3.8-10.6)
[2022-04-15 02:16] LABS: ALT 36 U/L (4-49); AST 36 U/L (17-59); African American GFR (CKD) >90 (>60 ml/min/1.73 sqM); Albumin 4.4 g/dL (3.5-5.0); Alkaline Phosphatase 100 U/L (38-126); Anion Gap 12 mmol/L; Blood Urea Nitrogen 21 mg/dL (9-20); Carbon Dioxide 27 mmol/L (22-30); Chloride 95 mmol/L (98-107); Glucose 143 mg/dL (74-99); Non-African American GFR(CKD) >90 (>60 ml/min/1.73 sqM); Sodium 134 mmol/L (137-145); Total Bilirubin 0.7 mg/dL (0.2-1.3); Total Protein 7.2 g/dL (6.3-8.2)
--- NOTE | 2022-04-15 03:46 | CT ---
EXAMINATION TYPE: CT chest angio for PE DATE OF EXAM: 04/15/2022 COMPARISON: None HISTORY: CARLEE. SOB. Elevated D-dimer CT DLP: 1097.5 mGycm Automated exposure control for dose reduction was used. CONTRAST: Performed with IV Contrast, patient injected with 100cc mL of Isovue 370. Images obtained from the thoracic inlet to the diaphragm with the IV contrast. There are Three-D post processed images. The lungs are clear of infiltrate. There is minimal subsegmental atelectasis at the lung bases. Heart size is normal. No pericardial effusion. There are no hilar masses. There is no mediastinal adenopathy. Thoracic aorta is intact. No aneurysm or dissection. There is normal contrast opacification of the pulmonary arteries. No filling defect. The thoracic spine is intact. No compression fracture. Sternum is intact. There is some fatty infiltr ation of the liver. IMPRESSION: No evidence of pulmonary embolism. No suspicious pulmonary mass. Fatty infiltration of the liver.
[2022-04-15 04:06] VITALS: BP 130/68; PULSE 80; RESP 18
== END 2022-04-15 04:06 | disposition home or self-care (01) ==
LOC: EC 22:56
DX: R06.02 Shortness of breath (principal); I10 Essential (primary) hypertension; Z99.89 Dependence on other enabling machines and devices; Z87.891 Personal history of nicotine dependence; Z20.822 Contact with and (suspected) exposure to COVID-19
CPT/HCPCS: 36415; 94640; 93005; 85379; 83880; 80053; 84484; 85025; 87635; 71046; 71275; 99285; 96374; J2930; Q9967

== ENCOUNTER 2022-07-15 12:35 | Emergency (ER) | payer OTHER ==
[2022-07-15 12:40] VITALS: TEMP 97.5
[2022-07-15] MEDS ORDERED: MORPHINE SULFATE 4 MG/ML SYRINGE IV STA (13:20)
[2022-07-15 13:23] LABS: Appearance,Urine Clear (Clear); Bilirubin,Urine Negative (Negative); Blood,Urine Negative (Negative); Color,Urine Yellow; Glucose,Urine (UA) Negative (Negative); Ketones,Urine Negative (Negative); Leukocyte Esterase,Urine Negative (Negative); Nitrite,Urine Negative (Negative); PH, Urine 5.5 (5.0-8.0); Protein,Urine Negative (Negative); Specific Gravity,Urine 1.022 (1.001-1.035)
[2022-07-15 13:44] LABS: Basophils % (A) 0 %; Eosinophils # (A) 0.1 k/uL (0-0.7); Eosinophils % (A) 1 %; HCT 43.7 % (39.0-53.0); HGB 14.5 gm/dL (13.0-17.5); Lymphocytes # (A) 1.4 k/uL (1.0-4.8); Lymphocytes % (A) 20 %; MCH 28.7 pg (25.0-35.0); MCHC 33.1 g/dL (31.0-37.0); MCV 86.6 fL (80.0-100.0); Mean Platelet Volume 7.2; Monocytes # (A) 0.5 k/uL (0-1.0); Monocytes % (A) 7 %; Neutrophils # (A) 4.9 k/uL (1.3-7.7); Neutrophils % (A) 70 %; Platelet Count 195 k/uL (150-450); RBC 5.04 m/uL (4.30-5.90)
[2022-07-15 14:04] LABS: ALT 38 U/L (4-49); AST 30 U/L (17-59); African American GFR (CKD) >90 (>60 ml/min/1.73 sqM); Albumin 3.8 g/dL (3.5-5.0); Alkaline Phosphatase 97 U/L (38-126); Amylase 56 U/L (30-110); Anion Gap 5 mmol/L; Blood Urea Nitrogen 15 mg/dL (9-20); Calcium 8.4 mg/dL (8.4-10.2); Carbon Dioxide 29 mmol/L (22-30); Chloride 102 mmol/L (98-107); Glucose 181 mg/dL (74-99); Lipase 52 U/L (23-300); Non-African American GFR(CKD) >90 (>60 ml/min/1.73 sqM); Sodium 136 mmol/L (137-145); Total Bilirubin 0.6 mg/dL (0.2-1.3); Total Protein 6.7 g/dL (6.3-8.2)
--- NOTE | 2022-07-15 14:07 | ED ---
Abdominal Pain HPI - General Chief Complaint: Abdominal Pain Stated Complaint: right side pain Time Seen by Provider: 07/15/22 12:50 Source: patient Mode of arrival: ambulatory Limitations: no limitations - History of Present Illness Initial Comments: This patient is 67-year-old man who presents evaluation of pain at the right costal margin area. He states that he had a coughing spell to 3 weeks ago feels like she injured something at that time. He states the pain is getting much worse over the course of last night into this morning. He is having a difficult time deciding whether it is strictly ribs or into the upper abdomen. The pain is moderate at baseline but gets worse with movements, deep breath or cough. He has not had dyspnea. He states that there is only rare cough. No hemoptysis. No nausea or vomiting. He has not noted change in urination or bowel movements. MD Complaint: abdominal pain -: week(s) Location: RUQ, R flank Migration to: other (Chest) Severity: moderate Quality: sharp Consistency: constant Improves With: nothing Worsens With: nothing Associated Symptoms: denies other symptoms - Related Data Home Medications Medication Instructions Recorded Confirmed Metoprolol Succinate (ER) [Toprol 25 mg PO DAILY 04/16/19 01/22/22 Xl] Meloxicam 15 mg PO DAILY 07/08/20 01/22/22 Lisinopril-Hctz 20-12.5 mg 1 tab PO BID 01/20/21 01/22/22 [Zestoretic 20-12.5] amLODIPine [Norvasc] 5 mg PO DAILY 03/27/21 01/22/22 Pantoprazole [Protonix] 40 mg PO DAILY 07/03/21 01/22/22 Previous Rx's Medication Instructions Recorded Gabapentin [Neurontin] 600 mg PO TID 30 Days #90 cap 08/31/21 Albuterol Inhaler [Ventolin Hfa 2 puff INHALATION Q4HR PRN #1 each 04/15/22 Inhaler] predniSONE 50 mg PO DAILY #5 tab 04/15/22 HYDROcodone/APAP 5-325MG [[place] 1 tab PO Q4HR PRN 3 Days #15 tab 07/15/22 5-325] Allergies Allergy/AdvReac Type Severity Reaction Status Date / Time celecoxib [From Celebrex] Allergy SORES IN Verified 01/15/23 12:40 MOUTH AND BLEEDING OF MOUTH Review of Systems ROS Statement: Those systems with pertinent positive or pertinent negative responses have been documented in the HPI. ROS Other: All systems not noted in ROS Statement are negative. Constitutional: Denies: fever, chills, weakness Respiratory: Reports: as per HPI, cough, dyspnea. Denies: wheezes, hemoptysis Cardiovascular: Reports: chest pain. Denies: palpitations, orthopnea, edema, syncope Gastrointestinal: Reports: abdominal pain. Denies: nausea, vomiting, diarrhea, constipation, melena, hematochezia Genitourinary: Denies: dysuria, hematuria, testicular pain Musculoskeletal: Denies: back pain Skin: Denies: rash Neurological: Denies: headache, weakness Past Medical History Past Medical History: Hypertension, Osteoarthritis (OA), Sleep Apnea/CPAP/BIPAP Additional Past Medical History / Comment(s): Uses CPAP. PVC's, Chronic back pain. History of Any Multi-Drug Resistant Organisms: None Reported Past Surgical History: Hernia Repair, Joint Replacement, Orthopedic Surgery Additional Past Surgical History / Comment(s): SHANDA HAND SX, RT FOOT SX X3 bone spurs, left knee arthroscopy, left knee replacement, TOTAL RIGHT HIP, COLONOSC OPY, GRAPEFRUIT SIZED CYST REMOVED FROM TAILBONE AREA, shanda CATARACT EYE SURGERY. Past Anesthesia/Blood Transfusion Reactions: No Reported Reaction Past Psychological History: No Psychological Hx Reported Smoking Status: Former smoker Past Alcohol Use History: None Reported Past Drug Use History: Marijuana - Past Family History Mother Family Medical History: Cancer Sister(s) Family Medical History: Cancer General Exam Limitations: no limitations General appearance: alert, in no apparent distress Head exam: Present: atraumatic, normocephalic Eye exam: Present: normal appearance. Absent: scleral icterus, conjunctival injection Neck exam: Present: normal inspection Respiratory exam: Present: normal lung sounds bilaterally, chest wall tenderness. Absent: respiratory distress, wheezes, rales, rhonchi, stridor, accessory muscle use Cardiovascular Exam: Present: regular rate, normal rhythm, normal heart sounds. Absent: systolic murmur, diastolic murmur, rubs, gallop GI/Abdominal exam: Present: soft, tenderness. Absent: distended, guarding, rebound, rigid, mass, pulsatile mass, hernia Extremities exam: Present: normal inspection, normal capillary refill. Absent: pedal edema, calf tenderness Back exam: Present: normal inspection. Absent: CVA tenderness (R), CVA tenderness (L) Neurological exam: Present: alert Skin exam: Present: warm, dry, intact, normal color. Absent: rash Course Vital Signs 07/15/22 07/15/22 07/15/22 12:38 15:04 15:53 Temperature 97.5 F L Pulse Rate 67 69 68 Respiratory 24 18 18 Rate Blood Pressure 141/92 140/87 140/89 O2 Sat by Pulse 99 95 95 Oximetry Medical Decision Making - Medical Decision Making This patient is a 67-year-old man with pain at the costal margin after coughing episode, weeks ago. The patient did have on exam some mild right upper abdominal tenderness, therefore brought differential diagnosis is considered including the chest and upper abdomen. Workup includes abdominal CT and chest CT to rule out pulmonary embolus. The abdominal CT is interpreted by myself is not showing kidney stone, acute cholecystitis, or other surgical condition. The CT chest does not show acute rib fracture, pulmonary embolism, or infiltrate. The patient is feeling markedly improved with analgesics. We discussed appropriate further care and follow-up as well as return parameters. Was pt. sent in by a medical professional or institution? @ -[No Did you speak to anyone other than the patient for history? @ -[No Did you review nursing and triage notes? @ -[agree Were old charts reviewed? @ -[No Differential Diagnosis? @ -[Differential Chest Pain: Stable Angina, Unstable Angina, STEMI, NSTEMI Aortic Dissection, Pneumothorax, Musculoskeletal, Esophageal Spasm GERD, Cholecystitis, Pancreatitis, Zoster, this is not meant to be an all-inclusive list. Differential Abdominal Pain Men: Appendicitis, cholecystitis, diverticulosis, ischemic bowel, pancreatitis, hepatitis, UTI, gastroenteritis, AAA, incarcerated hernia, bowel obstruction, constipation, inflammatory bowel, hepatitis, peptic ulcer disease, splenic infarction, perforated viscus, testicular torsion, this is not meant to be an all-inclusive list EKG interpreted by me (3pts min.)? @ -[See chart X-rays interpreted by me (1pt min.)? @ -[none] CT interpreted by me (1pt min.)? @ -[See chart U/S interpreted by me (1pt. min.)? @ -[none] What testing was considered but not performed? (CT, X-rays, U/S, labs)? Why? @ [No What meds were considered but not given? Why? @ -[none] Did you discuss the management of the patient with other professionals? @ -None Did you reconcile home meds? @ -[none] Was smoking cessation discussed for >3mins.? @ -[none] Was critical care preformed (if so, how long)? @ -[none] Were there social determinants of health that impacted care today? How? (Homelessness, low income, unemployed, alcoholism, drug addiction, transportation, low edu. Level, literacy, decrease access to med. care, alf, rehab)? @ -[None Was there de-escalation of care discussed even if they declined? (Discuss DNR or withdrawal of care, Hospice)? @ -[No What co-morbidities impacted this encounter? (DM, HTN, Smoking, COPD, CAD, Cancer, CVA, Hep., AIDS, mental health diagnosis, sleep apnea, morbid obesity)? @ -[DM, morbid obesity?] Was patient admitted / discharged? @ -[Discharged Undiagnosed new problem with uncertain prognosis? @ -[none] Drug Therapy requiring intensive monitoring for toxicity (Heparin, Nitro, Insulin, Cardizem)? @ -[none] Were any procedures done? @ -[none] Diagnosis/symptom? @ -[1. Right chest wall pain 2. Hyperglycemia Acute, or Chronic, or Acute on Chronic? @ -[Acute Uncomplicated (without systemic symptoms) or Complicated (systemic symptoms)? @ -[Uncomplicated Side effects of treatment? @ -[none] Exacerbation, Progression, or Severe Exacerbation] @ -[no] Poses a threat to life or bodily function? @ -[no] - Lab Data Result diagrams: 07/15/22 13:37 07/15/22 13:37 Lab Results 07/15/22 07/15/22 07/15/22 Range/Units 13:10 13:37 13:37 WBC 7.0 (3.8-10.6) k/uL RBC 5.04 (4.30-5.90) m/uL Hgb 14.5 (13.0-17.5) gm/dL Hct 43.7 (39.0-53.0) % MCV 86.6 (80.0-100.0) fL MCH 28.7 (25.0-35.0) pg MCHC 33.1 (31.0-37.0) g/dL RDW 13.0 (11.5-15.5) % Plt Count 195 (150-450) k/uL MPV 7.2 Neutrophils % 70 % Lymphocytes % 20 % Monocytes % 7 % Eosinophils % 1 % Basophils % 0 % Neutrophils # 4.9 (1.3-7.7) k/uL Lymphocytes # 1.4 (1.0-4.8) k/uL Monocytes # 0.5 (0-1.0) k/uL Eosinophils # 0.1 (0-0.7) k/uL Basophils # 0.0 (0-0.2) k/uL D-Dimer (<0.60) mg/L FEU Sodium 136 L (137-145) mmol/L Potassium 4.0 (3.5-5.1) mmol/L Chloride 102 (98-107) mmol/L Carbon Dioxide 29 (22-30) mmol/L Anion Gap 5 mmol/L BUN 15 (9-20) mg/dL Creatinine 0.67 (0.66-1.25) mg/dL Est GFR (CKD-EPI)AfAm >90 (>60 ml/min/1.73 sqM) Est GFR (CKD-EPI)NonAf >90 (>60 ml/min/1.73 sqM) Glucose 181 H (74-99) mg/dL Calcium 8.4 (8.4-10.2) mg/dL Total Bilirubin 0.6 (0.2-1.3) mg/dL AST 30 (17-59) U/L ALT 38 (4-49) U/L Alkaline Phosphatase 97 (38-126) U/L Total Protein 6.7 (6.3-8.2) g/dL Albumin 3.8 (3.5-5.0) g/dL Amylase 56 (30-110) U/L Lipase 52 (23-300) U/L Urine Color Yellow Urine Appearance Clear (Clear) Urine pH 5.5 (5.0-8.0) Ur Specific [place] 1.022 (1.001-1.035) Urine Protein Negative (Negative) Urine Glucose (UA) Negative (Negative) Urine Ketones Negative (Negative) Urine Blood Negative (Negative) Urine Nitrite Negative (Negative) Urine Bilirubin Negative (Negative) Urine Urobilinogen 2.0 (<2.0) mg/dL Ur Leukocyte Esterase Negative (Negative) 07/15/22 Range/Units 13:37 WBC (3.8-10.6) k/uL RBC (4.30-5.90) m/uL Hgb (13.0-17.5) gm/dL Hct (39.0-53.0) % MCV (80.0-100.0) fL MCH (25.0-35.0) pg MCHC (31.0-37.0) g/dL RDW (11.5-15.5) % Plt Count (150-450) k/uL MPV Neutrophils % % Lymphocytes % % Monocytes % % Eosinophils % % Basophils % % Neutrophils # (1.3-7.7) k/uL Lymphocytes # (1.0-4.8) k/uL Monocytes # (0-1.0) k/uL Eosinophils # (0-0.7) k/uL Basophils # (0-0.2) k/uL D-Dimer 0.75 H (<0.60) mg/L FEU Sodium (137-145) mmol/L Potassium (3.5-5.1) mmol/L Chloride (98-107) mmol/L Carbon Dioxide (22-30) mmol/L Anion Gap mmol/L BUN (9-20) mg/dL Creatinine (0.66-1.25) mg/dL Est GFR (CKD-EPI)AfAm (>60 ml/min/1.73 sqM) Est GFR (CKD-EPI)NonAf (>60 ml/min/1.73 sqM) Glucose (74-99) mg/dL Calcium (8.4-10.2) mg/dL Total Bilirubin (0.2-1.3) mg/dL AST (17-59) U/L ALT (4-49) U/L Alkaline Phosphatase (38-126) U/L Total Protein (6.3-8.2) g/dL Albumin (3.5-5.0) g/dL Amylase (30-110) U/L Lipase (23-300) U/L Urine Color Urine Appearance (Clear) Urine pH (5.0-8.0) Ur Specific [place] (1.001-1.035) Urine Protein (Negative) Urine Glucose (UA) (Negative) Urine Ketones (Negative) Urine Blood (Negative) Urine Nitrite (Negative) Urine Bilirubin (Negative) Urine Urobilinogen (<2.0) mg/dL Ur Leukocyte Esterase (Negative) Disposition Clinical Impression: Chest wall pain, Hyperglycemia Disposition: HOME SELF-CARE Condition: Good Instructions (If sedation given, give patient instructions): Chest Pain (ED), Nondiabetic Hyperglycemia (ED) Additional Instructions: As we discussed, follow-up your primary physician to have your blood sugar rechecked. Prescriptions: HYDROcodone/APAP 5-325MG [[place] 5-325] 1 tab PO Q4HR PRN 3 Days #15 tab PRN Reason: Pain Is patient prescribed a controlled substance at d/c from ED?: No Referrals: Edwin Reid MD [Primary Care Provider] - 1-2 days
--- NOTE | 2022-07-15 14:27 | CT ---
EXAMINATION TYPE: CT abdomen pelvis wo con DATE OF EXAM: 07/15/2022 COMPARISON: 08/01/2020 HISTORY: Right upper quadrant pain CT DLP: 2370.7 mGycm Automated exposure control for dose reduction was used. Images obtained from the diaphragm to the floor the pelvis with no contrast. There is some minimal atelectasis at the lung bases. Heart size is normal. No pericardial effusion. Liver spleen and stomach pancreas appear intact. The bile ducts are not dilated. Gallbladder is intac t. There is no adrenal mass. Kidneys show normal size and contour. No hydronephrosis. Ureters are not di lated. Appendix is posterior and appears normal. The bladder distends smoothly. No inguinal hernia. N o free fluid in the pelvis. No pelvic mass. There are multiple sigmoid diverticula. No diverticulitis . There is right hip prosthesis. Lumbar vertebrae have normal alignment. No compression fracture. Bony pelvis is intact. There is left acetabular spurring. There is no mesenteric edema. No ascites or free air. No sign of a bowel obstruction. IMPRESSION: Sigmoid diverticulosis without diverticulitis. Normal appendix. No acute abnormality of the abdomen a nd pelvis. There is clearing of the minimal diverticulitis of the sigmoid colon compared to old exams
[2022-07-15] MEDS ORDERED: HYDROmorphone 1 MG/ML 1 ML SYRINGE IVP STA (14:31)
[2022-07-15 15:05] VITALS: RESP 18
--- NOTE | 2022-07-15 15:33 | CT ---
EXAMINATION TYPE: CT chest angio for PE DATE OF EXAM: 07/15/2022 COMPARISON: 04/15/2022 HISTORY: Pleuritic pain, possible PE. CT DLP: 929.8 mGycm Automated exposure control for dose reduction was used. CONTRAST: Performed with IV Contrast, patient injected with 100 mL of Isovue 370. Images obtained from the thoracic inlet to the diaphragm with the IV contrast. There are Three-D post processed images. There is no mediastinal adenopathy. Thoracic aorta is intact. No aneurysm or dissection. There are no hilar masses. There is normal contrast opacification of the pulmonary arteries. No filling defect. There is some spurring in the lower thoracic spine. Sternum is intact. No compression fracture. There is old posterior right-sided rib fracture. There is some fatty infiltration of the liver. There is mild linear density at the lung bases. IMPRESSION: No evidence of pulmonary embolism. Mild subsegmental atelectasis at the lung bases similar to old radhaa m.
[2022-07-15 15:55] VITALS: BP 140/89; PULSE 68
== END 2022-07-15 16:11 | disposition home or self-care (01) ==
LOC: EC 12:35
DX: R73.9 Hyperglycemia, unspecified (principal); R07.89 Other chest pain; K57.32 Diverticulitis of large intestine without perforation or abscess without bleeding; I10 Essential (primary) hypertension; M19.90 Unspecified osteoarthritis, unspecified site; G47.30 Sleep apnea, unspecified; F12.90 Cannabis use, unspecified, uncomplicated; Z79.899 Other long term (current) drug therapy; Z79.1 Long term (current) use of non-steroidal anti-inflammatories (NSAID); Z87.891 Personal history of nicotine dependence; Z88.6 Allergy status to analgesic agent
CPT/HCPCS: 36415; 85379; 80053; 82150; 83690; 85025; 81003; 71275; 74176; 99284; 96374; 96375; J2270; J1170; Q9967

== ENCOUNTER → 2023-09-13 | Outpatient (CLI) | payer MEDICARE, OTHER ==
[~2023-09-13] MED LIST changes: -ACETAMINOPHEN TAB 500 MG TAB PO PRN; -HEPARIN SODIUM,PORCINE/PF 5,000 UNIT/0.5 ML SYRINGE SQ PRN; -Pre Op ABX Message 1 EACH MISC MISCELLANE ONE; +REGADENOSON 0.4 MG/5 ML SYRINGE IV PRN
--- NOTE | 2023-09-13 13:13 | NM ---
EXAMINATION TYPE: NM stress lexiscan cardiolite DATE OF EXAM: 09/13/2023 COMPARISON: NONE CLINICAL INDICATION: Male, 68 years old with history of I25.10 HERT DISEASE I10 HTN; TECHNIQUE: After the intravenous administration of 10.92 mCi Tc 99m Sestamibi - Cardiolite resting S PECT images acquired 48 minutes post injection. The patient received 0.4mg Lexiscan, 26.4 mCi Tc 99m Sestamibi - Stress images obtained [address] injection FINDINGS: Review of stress and rest SPECT images demonstrates moderate size fixed perfusion defect along the in ferior wall. There is moderate-sized defect along the mid to basal anteroseptal wall that is only see n on rest suggesting attenuation artifact. However, there is additional small area of perfusion defec t along the more mid to apical anteroseptal wall seen on stress. Gated analysis shows normal wall mot ion with an estimated left ventricular ejection fraction of 44 %. TID calculated upper limits of nor mal at 1.16. IMPRESSION: 1. Attenuation artifact along the mid to basal anteroseptal wall. Also along the inferior wall. 2. However, unable to exclude reversibility along the mid to apical anteroseptal wall. 3. In addition, estimated LVEF measured at 44%. Further workup as clinically indicated.
--- NOTE | 2023-09-13 18:00 | CA ---
Lexiscan Nuclear Stress Test Report Name: Galindo Olivo Exam Date: 09/13/2023 11:04 Exam Location: [place] Stress Ht (in): 72 Wt (lb): 300 BSA: 2.53 Ordering Phys: Timo Reid MD Referring Phys: TIMO REID Technologist: KOLE DOUGLAS Age: 68 Gender: M : 1955 Procedure CPT: Indications: I25.10 HERT DISEASE I10 HTN ICD-10 Codes: Patient History: CARLEE, HTN, FAMILY HX Medications: LISINOPRIL AND GABAPENTIN Meds past 24 hrs: Pretest Chest Pain: STRESS TEST Lexiscan Protocol Exercise Duration (min:sec): 01:[address] Depressions (mm): Angina Score: Will Score: Resting HR (bpm): 86 Peak HR (bpm): 112 Resting BP (mmHg): 135 / 71 Peak BP (mmHg): 104 / 78 MPHR: 154 Target HR: 131 % MPHR: 73 METS: 1.0 Total Dose: Peak Dose: Atropine: Double Product: 68463 BP Response: Stress Termination: END OF DOSE Stress Symptoms: Dyspnea Stress Summary: ECG ANALYSIS Resting ECG: Stress ECG: CONCLUSIONS Nondiagnostic stress testing Dr. Ramu Workman MD (Electronically Signed) Final Date: 13 September 2023 17:59
[2023-09-13 18:38] LABS: BUN/Creat Ratio 19.88 Ratio (12.00-20.00); Blood Urea Nitrogen 15.9 mg/dL (9.0-27.0); Calcium 9.1 mg/dL (8.7-10.3); Carbon Dioxide 26.6 mmol/L (21.6-31.8); Chloride 98 mmol/L (96-109); Glucose 104 mg/dL (70-110); Potassium 4.4 mmol/L (3.5-5.5); Sodium 136 mmol/L (135-145)
[2023-09-13 20:12] LABS: T4, Free (Free Thyroxine) 1.17 ng/dL (0.80-1.80)
[2023-09-13 20:42] LABS: HCT 47.2 % (39.6-50.0); HGB 15.3 g/dL (13.0-17.0); MCH 28.1 pg (27.0-32.0); MCHC 32.4 g/dL (32.0-37.0); MCV 86.8 FL (80.0-97.0); Mean Platelet Volume 9.8 FL (9.5-12.2); NRBC Per 100 WBC 0 X 10*3/uL (0.00-0.01); Platelet Count 192 X 10*3/uL (140-440); RBC 5.44 X 10*6/uL (4.40-5.60); RDW 13.2 % (11.5-14.5); WBC 7.18 X 10*3/uL (4.50-10.00)
== END | disposition home or self-care (01) ==
LOC: RADNMMAIN 09:00
PROVIDERS: ATTEND Family Medicine
DX: I25.10 Atherosclerotic heart disease of native coronary artery without angina pectoris (principal); I10 Essential (primary) hypertension
CPT/HCPCS: 93017; 84439; 80048; 84443; 85027; 78452; A9500; J2785

== ENCOUNTER 2023-09-24 05:56 | Day surgery (SDC) | payer MEDICARE, OTHER ==
[2023-09-19 13:56] VITALS: BMI 51.2
[2023-09-24] MEDS ORDERED: HEPARIN SODIUM,PORCINE 10,000 UNIT in SODIUM CHLORIDE 0.9% 1,000 ML IRRIGATION PRN (06:11)
[2023-09-24] MEDS ORDERED: ALPRAZolam 0.25 MG TAB PO PRN (06:11)
[2023-09-24] MEDS ORDERED: ASPIRIN 325 MG TAB PO ONE (06:11)
[2023-09-24] MEDS ORDERED: ALPRAZolam 0.5 MG TAB PO PRN (06:11)
[2023-09-24] MEDS ORDERED: NITROGLYCERIN SL TABS 0.4 MG TAB SUBLINGUAL PRN (06:11)
[2023-09-24] MEDS ORDERED: HEPARIN SODIUM,PORCINE (1 ML) 2,500 UNIT in SODIUM CHLORIDE 0.9% 250 ML IRRIGATION PRN (06:11)
[2023-09-24] MEDS ORDERED: ASPIRIN 81 MG ONE (06:48)
[2023-09-24] MEDS: SODIUM CHLORIDE 0.9% 1,000 ML in EMPTY BAG 1 BAG IV SCH (06:56)
[2023-09-24] MEDS: ASPIRIN 81 MG PO ONE (06:56)
[2023-09-24 07:01] LABS: Glucose,Whole Blood 122 mg/dL (70-110)
[2023-09-24] MEDS ORDERED: HEPARIN SODIUM 1,000 UN/ML (10ML VL) ONE (07:25)
[2023-09-24] MEDS ORDERED: fentaNYL (PF) 50 MCG/ML 2 ML AMP ONE (07:25)
[2023-09-24] MEDS: LIDOCAINE 1% INJ 10MG/ML (5 ML VIAL-PF) SQ ONE ×2 (07:30→07:33)
[2023-09-24 07:31] VITALS: RESP 18; TEMP 98.6
[2023-09-24] MEDS: MIDAZOLAM 2 MG/2 ML VIAL IVP ONE (07:31)
[2023-09-24] MEDS: VERAPAMIL SYRINGE (5 MG/10 ML) INTRAARTER ONE ×2 (07:31→07:34)
[2023-09-24] MEDS: fentaNYL (PF) 50 MCG/ML 2 ML AMP IVP ONE (07:36)
[2023-09-24] MEDS: HEPARIN SODIUM 1,000 UN/ML (10ML VL) IVP ONE (07:38)
[2023-09-24] MEDS: IOPAMIDOL-370 100ML BTL INJ ONE (07:47)
[2023-09-24] MEDS ORDERED: RX INFO: IV CONTRAST WAS GIVEN 1 EACH MISC MISCELLANE PRN (07:52)
[2023-09-24] MEDS ORDERED: SODIUM CHLORIDE 0.9% 1,000 ML IV SCH (08:00)
--- NOTE | 2023-09-24 08:18 | CC ---
CARDIAC CATHETERIZATION REPORT INDICATION: 1. Cardiomyopathy with moderate LV systolic dysfunction. 2. Abnormal stress test. PROCEDURE NOTE: After obtaining informed consent, left heart catheterization and coronary angiogram were performed via the right radial artery using standard Aydee catheters. The patient tolerated the procedure well without any obvious immediate complication, received moderate conscious sedation. Total sedation time was 12 minutes. The right radial artery access was obtained using Seldinger technique. A 6-Bolivian sheath was placed. Catheters and wires were floated into the ascending aorta under fluoroscopic guidance. The patient received verapamil and heparin per protocol. A TR band was used for hemostasis at the end of the procedure. FINDINGS: 1. Hemodynamics: Left ventricular end-diastolic pressure is 15 mm. There is no significant gradient across the aortic valve. 2. Left ventriculogram: Left ventriculogram is not performed. 3. Angiographic data: a.Left main coronary artery: Left main coronary artery is a normal-sized vessel and is free of stenosis. Divides into left anterior descending coronary artery and circumflex coronary artery. LAD and its branches, circumflex coronary artery and its branches are free of significant stenosis. Right coronary artery is a large dominant vessel and is free of significant disease. CONCLUSIONS: 1. Normal coronary arteries. 2. Nonischemic cardiomyopathy. 3. False-positive stress test. PLAN: The patient's management is going to be with medical therapy in risk factor modification. He will resume the anticoagulant this evening. His blood pressure is low. I am going to adjust the antihypertensives and discharge. MMODL / IJN: [id number] /
[2023-09-24 11:51] VITALS: BP 121/64; PULSE 78
== END 2023-09-24 12:00 | disposition home or self-care (01) ==
LOC: CATHCVL 05:56
PROVIDERS: ATTEND Internal Medicine Cardiovascular Disease
DX: I42.8 Other cardiomyopathies (principal); F10.90 Alcohol use, unspecified, uncomplicated; Z87.891 Personal history of nicotine dependence; Z79.899 Other long term (current) drug therapy
CPT/HCPCS: 93458; 99152; C1769; C1894; J2250; J2001; J3010; J1644; Q9967

== ENCOUNTER 2023-09-30 13:09 | Day surgery (SDC) | payer MEDICARE, OTHER ==
[2023-09-26 11:48] VITALS: BMI 52.4
[~2023-09-30 13:09] MED LIST changes: +LIDOCAINE 1% (10MG/ML) FOR IV START INTRADERMA PRN; -REGADENOSON 0.4 MG/5 ML SYRINGE IV PRN
[2023-09-30] MEDS: LACTATED RINGERS 1,000 ML IV SCH (13:48)
[2023-09-30 13:54] LABS: Glucose,Whole Blood 104 mg/dL (70-110)
[2023-09-30 14:13] VITALS: RESP 16; TEMP 96.8
[2023-09-30] MEDS ORDERED: GLYCOPYRROLATE 0.2 MG/ML 2 ML VIAL ONE (14:17)
[2023-09-30] MEDS ORDERED: PROPOFOL 10 MG/ML 20 ML VIAL IV ONE (14:17)
--- NOTE | 2023-09-30 14:31 | P.GSHP ---
History of Present Illness H&P Date: 09/30/23 Chief Complaint: screening colonoscopy this a 68-year-old male been safe for screening colonoscopy. Patient denies a significant GI complaints. Past Medical History Past Medical History: Diabetes Mellitus, GERD/Reflux, Hypertension, O steoarthritis (OA), Sleep Apnea/CPAP/BIPAP Additional Past Medical History / Comment(s): Uses CPAP. Occasional PVC's. Chronic back pain-waiting for Morphine Pump insertion. "Pre-Diabetic". Hx cellulitis in legs multiple times. History of Any Multi-Drug Resistant Organisms: None Reported Past Surgical History: Hernia Repair, Joint Replacement, Orthopedic Surgery Additional Past Surgical History / Comment(s): BILATERAL HAND SX, RIGHT FOOT SX X3 bone spurs, left knee arthroscopy, left knee replacement, TOTAL RIGHT HIP REPLACEMENT, COLONOSCOPY, GRAPEFRUIT SIZED CYST REMOVED FROM TAILBONE AREA, BILATERAL CATARACT SURGERY. Past Anesthesia/Blood Transfusion Reactions: No Reported Reaction Past Psychological History: No Psychological Hx Reported Smoking Status: Former smoker Past Alcohol Use History: None Reported Additional Past Alcohol Use History / Comment(s): STARTED SMOKING AT AGE 17, QUIT IN THE , SMOKED 1PPD. Past Drug Use History: Marijuana Additional Drug Use History / Comment(s): MARIJUANA OCCASIONAL USE. VAPES THC. - Past Family History Mother Family Medical History: Cancer Sister(s) Family Medical History: Cancer Medications and Allergies Home Medications Medication Instructions Recorded Confirmed Type Meloxicam 15 mg PO QAM 07/08/20 09/26/23 History Pantoprazole [Protonix] 40 mg PO QAM 07/03/21 09/26/23 History Apixaban [Eliquis] 5 mg PO BID 09/19/23 09/26/23 History Ergocalciferol [Vitamin D2 (1250 1,250 mcg PO BAI 09/19/23 09/26/23 History Mcg = [id number] Iu)] HYDROcodone/APAP 10-325MG [[place] 1 tab PO QID PRN 09/19/23 09/26/23 History 10-325] metFORMIN HCL [Glucophage] 500 mg PO QAM 09/19/23 09/26/23 History Gabapentin [Neurontin] 800 mg PO TID 09/24/23 09/26/23 History Lisinopril-Hctz 20-12.5 mg 1 tab PO QAM 09/26/23 09/26/23 History [Zestoretic 20-12.5] Allergies Allergy/AdvReac Type Severity Reaction Status Date / Time celecoxib [From Celebrex] Allergy sores and Verified 09/30/23 13:28 bleeding in his mouth metoprolol AdvReac Unknown made Verified 09/30/23 13:28 breathing worse when he had bronchitis Surgical - Exam Vital Signs Temp Pulse Resp Pulse Ox 96.8 F L 60 16 94 L 09/30/23 13:34 09/30/23 13:34 09/30/23 13:34 09/30/23 13:34 - General well developed, well nourished, no distress - Eyes PERRL - ENT normal pinna - Neck no masses - Respiratory normal expansion - Cardiovascular Rhythm: regular - Abdomen Abdomen: soft, non tender Assessment and Plan Assessment: we'll perform screening colonoscopy.
--- NOTE | 2023-09-30 14:34 | P.OP ---
Date of Procedure: 09/30/23 Preoperative Diagnosis: screening colonoscopy Postoperative Diagnosis: rectal polyp Diverticulosis Procedure(s) Performed: colonoscopy Anesthesia: MAC Surgeon: Shayan Cannon Pathology: other (rectal polyp) Condition: stable Disposition: PACU Description of Procedure: the patient's placed on the endoscopy table in the lateral position. He received IV sedation. Digital rectal exam was performed. This revealed no abnormalities. Flexible colonoscope was then placed patient anus passed throughout the entire colon. The ileocecal valve was visually is. The cecum, ascending and transverse colon.. In the descendingand sigmoid there is extensive diverticular changes. Scope back the rectum and there was several small hyperplastic polyp through the cold forcep. The scope was then withdrawn from the patient.
[2023-09-30 15:43] VITALS: BP 93/58; PULSE 84
== END 2023-09-30 15:39 | disposition home or self-care (01) ==
LOC: ORWHC2ENDO 13:09
PROVIDERS: ATTEND Surgery
DX: Z12.11 Encounter for screening for malignant neoplasm of colon (principal); K62.1 Rectal polyp; K57.30 Diverticulosis of large intestine without perforation or abscess without bleeding; E11.9 Type 2 diabetes mellitus without complications; K21.9 Gastro-esophageal reflux disease without esophagitis; I10 Essential (primary) hypertension; M19.90 Unspecified osteoarthritis, unspecified site; G47.33 Obstructive sleep apnea (adult) (pediatric); F12.90 Cannabis use, unspecified, uncomplicated; G89.29 Other chronic pain; Z96.652 Presence of left artificial knee joint; Z96.641 Presence of right artificial hip joint; Z98.890 Other specified postprocedural states; Z79.899 Other long term (current) drug therapy; Z87.891 Personal history of nicotine dependence; Z79.01 Long term (current) use of anticoagulants; Z79.84 Long term (current) use of oral hypoglycemic drugs; Z88.6 Allergy status to analgesic agent
CPT/HCPCS: 88305; 45380; J2704

== ENCOUNTER 2023-10-09 13:42 | Day surgery (SDC) | payer MEDICARE, OTHER ==
[2023-10-04 13:33] VITALS: BMI 52.2
--- NOTE | 2023-10-07 13:14 | P.HPOR ---
History of Present Illness H&P Date: 10/07/23 Subjective: This is a 66 year old male that presents today for follow up evaluation regarding a several year worsening history of right and left base of the thumb pain as well as numbness and tingling that is mainly isolated to the thumb, index, and middle fingers. He has tried thumb bracing which provides some relief, he does not wish to pursue any steroid injections. He has pain with pinch, grasp and gripping objects. Physical Examination: RUE: AIN/PIN/Radial/Ulnar/Median motor intact. Radial/Ulnar/Median SILT. 2+/4 Radial/Ulnar pulses palpated. 5/5 APB, 5/5 FDI. Negative Finkelsteins, positive CMC grind, positive Durkan's compression. LUE: AIN/PIN/Radial/Ulnar/Median motor intact. Radial/Ulnar/Median SILT. 2+/4 Radial/Ulnar pulses palpated. 5/5 APB, 5/5 FDI. Negative Finkelsteins, positive CMC grind, positive Durkan's compression. Imaging: X-Rays of the right hand demonstrate severe right thumb CMC arthritis with osteophyte formation and joint space narrowing. X-Rays of the left hand demonstrate severe left thumb CMC arthritis with osteophyte formation and joint space narrowing. Impression: 1.) Right thumb cmc arthritis, severe. 2.) Right carpal tunnel syndrome 3.) Left thumb CMC arthritis, severe. 4.) Left carpal tunnel syndrome Plan: Diagnosis and treatment options were discussed with the patient. He has severe end stage bilateral thumb CMC arthritis and worsening carpal tunnel syndrome symptoms. He wishes to pursue a right thumb CMC basilar joint arthroplasty and right endoscopic vs open carpal tunnel release. Risks and benefits of surgery including bleeding, infection, damage to surrounding tissue, need for further surgery, possible need to convert to open procedure, residual numbness were discussed and the patient wished to go forward with surgery. CC: Dr. Edwin Carpio DO Orthopedic Hand/Upper Extremity Surgeon Past Medical History Past Medical History: Atrial Fibrillation, Diabetes Mellitus, GERD/Reflux, Hypertension, Osteoarthritis (OA), Sleep Apnea/CPAP/BIPAP Additional Past Medical History / Comment(s): Uses CPAP. Occasional PVC's. Chronic back pain-waiting for Morphine Pump insertion. "Pre-Diabetic". Hx cellulitis in legs multiple times. History of Any Multi-Drug Resistant Organisms: None Reported Past Surgical History: Heart Catheterization, Hernia Repair, Joint Replacement, Orthopedic Surgery Additional Past Surgical History / Comment(s): BILATERAL HAND SX, RIGHT FOOT SX X3 bone spurs, left knee arthroscopy, left knee replacement, TOTAL RIGHT HIP REPLACEMENT, COLONOSCOPY, GRAPEFRUIT SIZED CYST REMOVED FROM TAILBONE AREA, BILATERAL CATARACT SURGERY. Past Anesthesia/Blood Transfusion Reactions: No Reported Reaction Past Psychological History: No Psychological Hx Reported Smoking Status: Former smoker Past Alcohol Use History: None Reported Additional Past Alcohol Use History / Comment(s): STARTED SMOKING AT AGE 17, QUIT IN THE , SMOKED 1PPD. Past Drug Use History: Marijuana Additional Drug Use History / Comment(s): MARIJUANA OCCASIONAL USE. VAPES THC. - Past Family History Mother Family Medical History: Cancer Sister(s) Family Medical History: Cancer Medications and Allergies Home Medications Medication Instructions Recorded Confirmed Type Meloxicam 15 mg PO QAM 07/08/20 10/04/23 History Pantoprazole [Protonix] 40 mg PO QAM 07/03/21 10/04/23 History Apixaban [Eliquis] 5 mg PO BID 09/19/23 10/04/23 History Ergocalciferol [Vitamin D2 (1250 1,250 mcg PO BAI 09/19/23 10/04/23 History Mcg = 20138 Iu)] HYDROcodone/APAP 10-325MG [[place] 1 tab PO QID PRN 09/19/23 10/04/23 History 10-325] metFORMIN HCL [Glucophage] 500 mg PO QAM 09/19/23 10/04/23 History Gabapentin [Neurontin] 800 mg PO TID 09/24/23 10/04/23 History Lisinopril-Hctz 20-12.5 mg 1 tab PO QAM 09/26/23 10/04/23 History [Zestoretic 20-12.5] Diltiazem Cd [Cardizem CD] 120 mg PO QAM 10/04/23 10/04/23 History Allergies Allergy/AdvReac Type Severity Reaction Status Date / Time celecoxib [From Celebrex] Allergy sores and Verified 10/04/23 12:52 bleeding in his mouth metoprolol AdvReac Unknown made Verified 10/04/23 12:52 breathing worse when he had bronchitis Physical Examination Osteopathic Statement: *. No significant issues noted on an osteopathic structural exam other than those noted in the History and Physical/Consult.
[~2023-10-09 13:42] MED LIST changes: +HYDROmorphone 0.5 MG/0.5 ML SYRINGE IVP PRN; -LIDOCAINE 1% (10MG/ML) FOR IV START INTRADERMA PRN
[2023-10-09] MEDS: LACTATED RINGERS 1,000 ML IV SCH (14:00)
[2023-10-09 14:14] LABS: Glucose,Whole Blood 102 mg/dL (70-110)
[2023-10-09] MEDS: DEXAMETHASONE SOD PHOSPHATE 4 MG/ML 1 ML VIAL IV ONE (14:20)
[2023-10-09] MEDS: ONDANSETRON 4 MG/2 ML VIAL IVP ONE (14:20)
[2023-10-09] MEDS: fentaNYL (PF) 50 MCG/ML 2 ML AMP IVP ONE (14:22)
[2023-10-09] MEDS: MIDAZOLAM 2 MG/2 ML VIAL IVP ONE (14:22)
[2023-10-09 14:38] VITALS: TEMP 97.1
[2023-10-09] MEDS ORDERED: fentaNYL (PF) 50 MCG/ML 2 ML AMP ONE (15:43)
[2023-10-09] MEDS ORDERED: PHENYLEPHRINE 10 MG/ML VIAL ONE (15:43)
[2023-10-09] MEDS ORDERED: PROPOFOL 10 MG/ML 20 ML VIAL IV ONE (15:43)
[2023-10-09] MEDS ORDERED: MIDAZOLAM 2 MG/2 ML VIAL ONE (15:43)
[2023-10-09] MEDS ORDERED: ROPIVACAINE 5 MG/ML 30 ML VIAL ONE (15:43)
[2023-10-09] MEDS ORDERED: SODIUM CHLORIDE 0.9% (PF) 10 ML VIAL ONE (15:43)
[2023-10-09] MEDS ORDERED: KETAMINE HCL IN 0.9 % NACL 50 MG/5 ML SYRINGE ONE (15:43)
[2023-10-09] MEDS: ceFAZolin 3 GM in SODIUM CHLORIDE 0.9% 100 ML IVPB PRN (15:45)
[2023-10-09] MEDS: LACTATED RINGERS 1,000 ML IV ONE (16:46)
[2023-10-09 17:55] VITALS: BP 106/56; PULSE 77; RESP 20
--- NOTE | 2023-10-09 19:14 | P.ANPRN ---
Procedure Note - Anesthesia - Nerve Block Performed Right Axillary Single Time Out Performed: Yes (1422) Date of Procedure: 10/09/23 Procedure Start Time: 14:23 Procedure Stop Time: 14:28 Location of Patient: PreOp Indication: Acute Post-Operative Pain, Requested by Surgeon Specifically requested for management of pain by DroJse: Dallas Carpio Sedation Type: Sedate with meaningful contact maintained Preparation: Sterile Prep Position: Supine Catheter: None Needle Types: Pajunk Needle Gauge: 21 Ultrasound used to visualize needle placement: Yes Ultrasound used to observe medication spread: Yes Injectate: 0.5% Ropivacaine (see comment for volume) (30cc + 20cc nacl pf (12.5 ml aliquots at each radial, median ulnar mskcut) Blood Aspirated: No Pain Paresthesia on Injection Noted: No Resistance on Injection: Normal Image Stored and Saved: Yes Events: Uneventful and Well Tolerated
--- NOTE | 2023-10-11 13:32 | P.OP ---
Date of Procedure: 10/09/23 Preoperative Diagnosis: 1.) Right thumb CMC arthritis 2.) Right carpal tunnel syndrome Postoperative Diagnosis: 1.) Right thumb CMC arthritis 2.) Right carpal tunnel syndrome Procedure(s) Performed: 1.) Right thumb CMC basilar joint arthroplasty 2.) Right endoscopic carpal tunnel release Anesthesia: VALER[facility] regional Surgeon: Dallas Carpio Neuropathologist #1: Suleiman Jimenez Estimated Blood Loss (ml): 0 Pathology: none sent Condition: stable Disposition: PACU Description of Procedure: This is a 68 year old male who presents today for a right thumb CMC basal joint arthroplasty and right endoscopic carpal tunnel release after having failed conservative treatment for severe thumb CMC arthritis. Risks and benefits of surgery were discussed with the patient including bleeding, damage to surrounding tissue, infection, need for further surgery as well as risks of anesthesia including pulmonary embolism and even and the patient wished to proceed with surgical intervention. The patients was seen in the pre-operative area by myself. Consent and H&P were completed and updated. The correct extremity was marked in the pre-operative area by myself and all other questions were answered. Patient received a upper extremity nerve block by the department of anesthesia. He then was brought to the operating room by the department of anesthesia. They remained on the portable stretcher and a rolling hand table was brought to the side of the operative extremity. The patient was then drifted off to sleep by the department of anesthesia. A nonsterile tourniquet was then applied to the operative extremity and the right upper extremity was then prepped and draped in normal sterile fashion. Pre-operative time out was performed indicating the correct patient, procedure and laterality. All in the room agreed. Pre-operative antibiotics were given prior to skin incision. The operative extremity was the exsanguinated with an esmarch bandage and the tourniquet was inflated to 250mmHg. 15 blade scalpel was utilized to make a transverse incision on the palmar skin just ulnar to the palmaris longus tendon at the level of the distal wrist crease. Ragnell retractor was then placed radially and blunt dissection was performed to reveal the distal forearm fascia. This was lifted with fine Werner pick ups and Littler tenotomy scissors were then used to open the forearm fascia transversely and a double skin hook was then placed. Hamate finder was placed into the carpal tunnel and then sequential sized dilators were inserted followed by the synovial elevator to separate the flexor tenosynovium from the undersurface of the transverse carpal ligament and a washboard texture was felt. The MicroAire endoscopic carpal tunnel release system gun was the then inserted into the carpal tunnel hugging the deep portion of the transverse carpal ligament in line with the base of the ring finger. Transverse fibers of the ligament were directly visualized. Pressure was applied on the palm to reveal the distal extent of the transverse carpal ligament. The blade was then deployed and the distal half of the transverse carpal ligament was released. The scope was then brought distal again and remaining transverse fibers were incised with the blade. The proximal half of the transverse carpal ligament was then divided and again the scope was advanced distal and remaining transverse fibers were incised with the blade. The radial and ulnar leaflets were directly visualized and mobile consistent with complete release. Tenotomy scissors were then utilized to release the remaining distal forearm fascia under direct visualization taking care to preserve the palmar cutaneous branch of the median nerve. Longitudinal incision was made over the left thumb CMC joint with a 15 blade scalpel. Blunt dissection was taken down to subcutaneous tissues with littler scissors taking care to preserve the branches of the superficial radial nerve. Dorsal radial artery was identified proximally in the incision and protected throughout the procedure. Scalpel was then made to incise the thumb CMC joint creating full thickness flaps off of the proximal metacarpal base and trapezium, this plane was further developed with a periosteal elevator. Elevator was then utilized to identify the thumb CMC joint and scaphotrapezial joint. McGlamory elevator was then used to excise the trapezium whole. Guidewire was then introduced down to the laser line at the base of the first metacarpal through the same incision and was over drilled. Another guidewire was then inserted at the radial base of the first metacarpal near the Insertion of APL and was then over drilled with normal drill guide. A 3.5mm Arthrex SwiveLock anchor was then inserted into the base of the first metacarpal. While holding the thumb in slight traction and full adduction, another 3.5mm Arthrex SwiveLock anchor was inserted into the base of the second metacarpal and the two strands of fibertape were centered across the first metacarpal base to create a sling around the base suspending the thumb metacarpal, good raeann purchase was appreciated. The thumb was successfully suspended and full ROM was achieved passively. Suture ends were cut and skin was closed with several interrupted 4-0 Monocryl sutures followed by a running 4-0 Monocryl stitch. Sterile dressing consisting of steri strips followed by 4x4s cast padding, and a thumb spica plaster splint was applied. Tourniquet was let down and the hand had brisk cap refill and normal perfusion immediately. The patient was then woken by the department of anesthesia and transferred to PACU in stable condition. Suleiman COLLINS was present for the case and assisted in major portions of procedure and protection of vital neurovascular structures. Dallas Carpio D.O. Orthopedic Hand/Upper Extremity Surgeon
== END 2023-10-09 18:41 | disposition home or self-care (01) ==
LOC: OR 13:42
PROVIDERS: ATTEND Orthopaedic Surgery Hand Surgery
DX: M18.11 Unilateral primary osteoarthritis of first carpometacarpal joint, right hand (principal); G56.03 Carpal tunnel syndrome, bilateral upper limbs; E11.9 Type 2 diabetes mellitus without complications; G47.30 Sleep apnea, unspecified; G89.18 Other acute postprocedural pain; G89.29 Other chronic pain; I10 Essential (primary) hypertension; I48.91 Unspecified atrial fibrillation; K21.9 Gastro-esophageal reflux disease without esophagitis; Z79.01 Long term (current) use of anticoagulants; Z79.84 Long term (current) use of oral hypoglycemic drugs; Z87.891 Personal history of nicotine dependence; Z88.6 Allergy status to analgesic agent; Z96.652 Presence of left artificial knee joint; Z79.899 Other long term (current) drug therapy
CPT/HCPCS: 29848; 25447; 64415; C1713; J2250; J1100; J0690; J2405; J3010; J2795; J2704; J2371

== ENCOUNTER 2023-12-22 10:55 | Emergency (ER) | payer MEDICARE, OTHER ==
[2023-12-22 11:07] VITALS: RESP 18
--- NOTE | 2023-12-22 11:31 | ED ---
Neck Injury/Pain HPI - General Chief Complaint: Neck Pain/Injury Stated Complaint: back/neck pain Time Seen by Provider: 12/22/23 11:05 Source: patient, RN notes reviewed Mode of arrival: ambulatory Limitations: no limitations - History of Present Illness Initial Comments: 68-year-old male presents emergency department treatment of neck pain. Patient is chronic pain including neck and back he is scheduled for morphine pump. Patient states he was trialed on morphine and states he took all of his pain away. Patient states he has pain in his neck and some numbness is which is not unusual for him. Patient states he had no new trauma and denies any new weakness no other complaints. - Related Data Home Medications Medication Instructions Recorded Confirmed Meloxicam 15 mg PO QAM 07/08/20 10/04/23 Pantoprazole [Protonix] 40 mg PO QAM 07/03/21 10/09/23 Apixaban [Eliquis] 5 mg PO BID 09/19/23 10/09/23 Ergocalciferol [Vitamin D2 (1250 1,250 mcg PO BAI 09/19/23 10/04/23 Mcg = 19313 Iu)] HYDROcodone/APAP 10-325MG [[place]a 1 tab PO QID PRN 09/19/23 10/09/23 10-325] metFORMIN HCL [Glucophage] 500 mg PO QAM 09/19/23 10/09/23 Gabapentin [Neurontin] 800 mg PO TID 09/24/23 10/09/23 Lisinopril-Hctz 20-12.5 mg 1 tab PO QAM 09/26/23 10/09/23 [Zestoretic 20-12.5] Previous Rx's Medication Instructions Recorded Cyclobenzaprine [Flexeril] 10 mg PO TID PRN #15 tab 12/22/23 predniSONE 50 mg PO DAILY #5 tab 12/22/23 Allergies Allergy/AdvReac Type Severity Reaction Status Date / Time celecoxib [From Celebrex] Allergy sores and Verified 12/22/23 11:07 bleeding in his mouth metoprolol AdvReac Unknown made Verified 12/22/23 11:07 breathing worse when he had bronchitis Review of Systems ROS Statement: Those systems with pertinent positive or pertinent negative responses have been documented in the HPI. ROS Other: All systems not noted in ROS Statement are negative. Past Medical History Past Medical History: Atrial Fibrillation, Diabetes Mellitus, GERD/Reflux, Hypertension, Osteoarthritis (OA), Sleep Apnea/CPAP/BIPAP Additional Past Medical History / Comment(s): Uses CPAP. Occasional PVC's. Chronic back pain-waiting for Morphine Pump insertion. "Pre-Diabetic". Hx cellulitis in legs multiple times. History of Any Multi-Drug Resistant Organisms: None Reported Past Surgical History: Heart Catheterization, Hernia Repair, Joint Replacement, Orthopedic Surgery Additional Past Surgical History / Comment(s): BILATERAL HAND SX, RIGHT FOOT SX X3 bone spurs, left knee arthroscopy, left knee replacement, TOTAL RIGHT HIP REPLACEMENT, COLONOSCOPY, GRAPEFRUIT SIZED CYST REMOVED FROM TAILBONE AREA, BILATERAL CATARACT SURGERY. Past Anesthesia/Blood Transfusion Reactions: No Reported Reaction Past Psychological History: No Psychological Hx Reported Smoking Status: Former smoker, Vaper Past Alcohol Use History: Occasional Past Drug Use History: Marijuana - Past Family History Mother Family Medical History: Cancer Sister(s) Family Medical History: Cancer General Exam Limitations: no limitations General appearance: alert, in no apparent distress Head exam: Present: atraumatic, normocephalic, normal inspection Eye exam: Present: normal appearance, PERRL, EOMI. Absent: scleral icterus, conjunctival injection, periorbital swelling Neck exam: Present: normal inspection, tenderness, full ROM. Absent: meningismus, lymphadenopathy Respiratory exam: Present: normal lung sounds bilaterally. Absent: respiratory distress, wheezes, rales, rhonchi, stridor Cardiovascular Exam: Present: regular rate, normal rhythm, normal heart sounds. Absent: systolic murmur, diastolic murmur, rubs, gallop, clicks Extremities exam: Present: other (Upper extremity strength equal bilaterally neurovascular intact) Neurological exam: Present: alert, oriented X3, CN II-XII intact, reflexes normal. Absent: motor sensory deficit Skin exam: Present: warm, dry, intact, normal color. Absent: rash Course Vital Signs 12/22/23 12/22/23 11:02 11:43 Temperature 97.4 F L 98.0 F Pulse Rate 96 82 Respiratory 18 18 Rate Blood Pressure 119/71 122/74 O2 Sat by Pulse 95 97 Oximetry Medical Decision Making - Medical Decision Making Was pt. sent in by a medical professional or institution (, PA, INSTALLMENT DEALER, urgent care, hospital, or snf...) When possible be specific @ -No Did you speak to anyone other than the patient for history (EMS, parent, family, police, friend...)? What history was obtained from this source @ -No Did you review nursing and triage notes (agree or disagree)? Why? @ -I reviewed and agree with nursing and triage notes Were old charts reviewed (outside hosp., previous admission, EMS record, old EKG, old radiological studies, urgent care reports/EKG's, snf records)? Report findings @ -No old charts were reviewed Differential Diagnosis (chest pain, altered mental status, abdominal pain women, abdominal pain men, vaginal bleeding, weakness, fever, dyspnea, syncope, headache, dizziness, GI bleed, back pain, seizure, CVA, palpatations, mental health, musculoskeletal)? @ -Cervical strain, cervical decapitate, chronic neck pain, EKG interpreted by me (3pts min.). @ -None X-rays interpreted by me (1pt min.). @ -None done CT interpreted by me (1pt min.). @ -None done U/S interpreted by me (1pt. min.). @ -None done What testing was considered but not performed or refused? (CT, X-rays, U/S, labs)? Why? @ -Consider imaging including x-ray CT and MRI this is chronic pain without new injury and new symptoms patient declines. What meds were considered but not given or refused? Why? @ -None Did you discuss the management of the patient with other professionals (professionals i.e. , PA, INSTALLMENT DEALER, lab, RT, psych nurse, social media editor, supervisor mixing, teacher, licensed loan officer, correctional case records supervisor)? Give summary @ -No Was smoking cessation discussed for >3mins.? @ -No Was critical care preformed (if so, how long)? @ -No Were there social determinants of health that impacted care today? How? (Homelessness, low income, unemployed, alcoholism, drug addiction, simon sportation, low edu. Level, literacy, decrease access to med. care, fpc, rehab)? @ -No Was there de-escalation of care discussed even if they declined (Discuss DNR or withdrawal of care, Hospice)? DNR status @ -No What co-morbidities impacted this encounter? (DM, HTN, Smoking, COPD, CAD, Cancer, CVA, ARF, Chemo, Hep., AIDS, mental health diagnosis, sleep apnea, morbid obesity)? @ -None Was patient admitted / discharged? Hospital course, mention meds given and route, prescriptions, significant lab abnormalities, going to OR and other pertinent info. @Discharge patient provided analgesics was started on steroids for acute exacerbation of chronic pain. Patient has no red flag symptoms currently. Patient has an appointment with Dr. Wright Undiagnosed new problem with uncertain prognosis? @ -No Drug Therapy requiring intensive monitoring for toxicity (Heparin, Nitro, Insulin, Cardizem)? @ -No Were any procedures done? @ -No Diagnosis/symptom? @ -Acute on chronic neck pain Acute, or Chronic, or Acute on Chronic? @ -Acute on chronic Uncomplicated (without systemic symptoms) or Complicated (systemic symptoms)? @ -Uncomplicated Side effects of treatment? @ -No Exacerbation, Progression, or Severe Exacerbation? @ -No Poses a threat to life or bodily function? How? (Chest pain, USA, PA, pneumonia, PE, COPD, DKA, ARF, appy, cholecystitis, CVA, Diverticulitis, Homicidal, Suicidal, threat to staff... and all critical care pts) @ -No Disposition Clinical Impression: Cervical radicular pain Disposition: HOME SELF-CARE Condition: Stable Instructions (If sedation given, give patient instructions): Cervical Radiculopathy (ED) Additional Instructions: Please return to the Emergency Department if symptoms worsen or any other concerns. Prescriptions: Cyclobenzaprine [Flexeril] 10 mg PO TID PRN #15 tab PRN Reason: Muscle Spasm predniSONE 50 mg PO DAILY #5 tab Is patient prescribed a controlled substance at d/c from ED?: No Referrals: Edwin Reid MD [Primary Care Provider] - 1-2 days Time of Disposition: 11:30
[2023-12-22] MEDS: HYDROmorphone 1 MG/ML 1 ML SYRINGE IM STA (11:37)
[2023-12-22 11:45] VITALS: BP 122/74; PULSE 82; TEMP 98
== END 2023-12-22 11:51 | disposition home or self-care (01) ==
LOC: EC 10:55
DX: M54.12 Radiculopathy, cervical region (principal); F17.290 Nicotine dependence, other tobacco product, uncomplicated; F12.90 Cannabis use, unspecified, uncomplicated; Z88.6 Allergy status to analgesic agent
CPT/HCPCS: 99283; 96372 ×2; J3360; J1170

== ENCOUNTER 2024-06-23 10:30 | Emergency (ER) | payer MEDICARE, OTHER ==
[2024-06-23 10:37] VITALS: TEMP 98.5
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
[2024-06-23 11:11] LABS: Basophils % (A) 0 %; Eosinophils % (A) 0 %; HCT 45.8 % (39.0-53.0); HGB 15.1 gm/dL (13.0-17.5); Lymphocytes # (A) 1.3 k/uL (1.0-4.8); Lymphocytes % (A) 16 %; MCH 29.3 pg (25.0-35.0); MCV 88.9 fL (80.0-100.0); Mean Platelet Volume 7.3; Monocytes # (A) 0.6 k/uL (0-1.0); Monocytes % (A) 7 %; Neutrophils # (A) 6.4 k/uL (1.3-7.7); Neutrophils % (A) 75 %; Platelet Count 230 k/uL (150-450); RBC 5.15 m/uL (4.30-5.90); RDW 12.7 % (11.5-15.5); WBC 8.4 k/uL (3.8-10.6)
[2024-06-23 11:22] LABS: ALT 57 U/L (4-49); African American GFR (CKD) >90 (>60 ml/min/1.73 sqM); Anion Gap 8 mmol/L; Blood Urea Nitrogen 21 mg/dL (9-20); Calcium 8.9 mg/dL (8.4-10.2); Carbon Dioxide 28 mmol/L (22-30); Chloride 98 mmol/L (98-107); Non-African American GFR(CKD) >90 (>60 ml/min/1.73 sqM); Sodium 134 mmol/L (137-145); Total Bilirubin 1.5 mg/dL (0.2-1.3)
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
[2024-06-23 11:53] LABS: AST 65 U/L (17-59); Albumin 4.4 g/dL (3.5-5.0); Alkaline Phosphatase 53 U/L (38-126); Glucose 124 mg/dL (74-99); Total Protein 7.2 g/dL (6.3-8.2)
[2024-06-23 12:20] VITALS: RESP 18
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
[2024-06-23 13:20] VITALS: BP 103/83; PULSE 93
== END 2024-06-23 13:27 | disposition home or self-care (01) ==
LOC: EC 10:30 → SUPCPDRO 10:30 → EC 13:27
DX: S20.219A Contusion of unspecified front wall of thorax, initial encounter (principal); S60.022A Contusion of left index finger without damage to nail, initial encounter; S60.032A Contusion of left middle finger without damage to nail, initial encounter; S10.91XA Abrasion of unspecified part of neck, initial encounter; F17.290 Nicotine dependence, other tobacco product, uncomplicated; Z88.6 Allergy status to analgesic agent; Z88.8 Allergy status to other drugs, medicaments and biological substances; V49.69XA Unspecified car occupant injured in collision with other motor vehicles in traffic accident, initial encounter; Y92.410 Unspecified street and highway as the place of occurrence of the external cause
CPT/HCPCS: 36415; 93005; 80053; 84484; 85025; 73130; 72125; 71270; 99285; Q9967

== ENCOUNTER → 2025-01-07 | Outpatient (CLI) | payer MEDICARE, OTHER ==
[2025-01-07 09:08] LABS: African American GFR (CKD) >90 (>60 ml/min/1.73 sqM); Blood Urea Nitrogen 20 mg/dL (9-20); Non-African American GFR(CKD) >90 (>60 ml/min/1.73 sqM)
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
== END | disposition home or self-care (01) ==
LOC: RADCTMAIN 07:12
PROVIDERS: ATTEND Family Medicine
DX: R91.8 Other nonspecific abnormal finding of lung field (principal); Z87.81 Personal history of (healed) traumatic fracture
CPT/HCPCS: 82565; 84520; 71270; 36415; Q9967

== ENCOUNTER → 2025-01-08 | Outpatient (CLI) | payer MEDICARE, OTHER | END | disposition home or self-care (01) | LOC: LABWHC1 11:50 | PROVIDERS: ATTEND Orthopaedic Surgery | DX: Z01.812 Encounter for preprocedural laboratory examination (principal); Z22.322 Carrier or suspected carrier of Methicillin resistant Staphylococcus aureus; M17.11 Unilateral primary osteoarthritis, right knee | CPT/HCPCS: 87070 ==

== ENCOUNTER 2025-01-12 07:45 | Day surgery (SDC) | payer MEDICARE, OTHER ==
--- NOTE | 2025-01-11 08:22 | P.HPOR ---
History of Present Illness H&P Date: 01/11/25 Chief Complaint: Right knee pain The patient is a 69-year-old male who presents with progressive right knee pain for the past several years. He notes anterior and medial pain with weightbearing activities. He notes he has been limping. He does use a cane. He has tried medications without much relief. He is on a morphine pump. Review of Systems Per HPI Past Medical History Past Medical History: Atrial Fibrillation, COPD, Diabetes Mellitus, GERD/Reflux, Hypertension, Osteoarthritis (OA), Skin Disorder, Sleep Apnea/CPAP/BIPAP Additional Past Medical History / Comment(s): Occasional PVC's. Chronic back pain-has Morphine Pump. Hx cellulitis in legs multiple times. psoriasis & rosacea. no CPAP. History of Any Multi-Drug Resistant Organisms: None Reported Past Surgical History: Heart Catheterization, Hernia Repair, Joint Replacement, Orthopedic Surgery Additional Past Surgical History / Comment(s): BILATERAL HAND SX, RIGHT FOOT SX X3 bone spurs, left knee arthroscopy, left knee replacement, TOTAL RIGHT HIP REPLACEMENT, COLONOSCOPY, GRAPEFRUIT SIZED CYST REMOVED FROM TAILBONE AREA, BILATERAL CATARACT SURGERY. right thigh lipoma removed. right hand carpal tunnel surg. Past Anesthesia/Blood Transfusion Reactions: No Reported Reaction Smoking Status: Former smoker - Past Family History Mother Family Medical History: Cancer Additional Family Medical History / Comment(s): ovarian Sister(s) Family Medical History: Cancer Additional Family Medical History / Comment(s): skin Medications and Allergies Home Medications Medication Instructions Recorded Confirmed Type Meloxicam 15 mg PO QAM 07/08/20 01/07/25 History Pantoprazole [Protonix] 40 mg PO QAM 07/03/21 01/07/25 History Apixaban [Eliquis] 5 mg PO BID 09/19/23 01/07/25 History metFORMIN HCL [Glucophage] 500 mg PO QAM 09/19/23 01/07/25 History Gabapentin [Neurontin] 800 mg PO TID 09/24/23 01/07/25 History Lisinopril-Hctz 20-12.5 mg 1 tab PO QAM 09/26/23 01/07/25 History [Zestoretic 20-12.5] Albuterol Inhaler [Ventolin Hfa 1 - 2 puff INHALATION Q6H PRN 01/07/25 01/07/25 History Inhaler] Baclofen 20 mg PO BID 01/07/25 01/07/25 History DULoxetine HCL [Cymbalta] 30 mg PO DAILY 01/07/25 01/07/25 History Empagliflozin [Jardiance] 10 mg PO DAILY 01/07/25 01/07/25 History Furosemide [Lasix] 40 mg PO DAILY 01/07/25 01/07/25 History Morphine Pump 0.163 mg INTRATHECA CONTINUOUS 01/07/25 History Potassium Chloride ER [K-Dur 10] 10 meq PO DAILY 01/07/25 01/07/25 History Tamsulosin [Flomax] 0.4 mg PO DAILY 01/07/25 01/07/25 History Umeclidinium Brm/Vilanterol Tr 1 puff INHALATION DAILY 01/07/25 01/07/25 History [Anoro Ellipta 62.5-25 Mcg INH] Allergies Allergy/AdvReac Type Severity Reaction Status Date / Time celecoxib [From Celebrex] Allergy sores and Verified 01/07/25 11:23 bleeding in his mouth metoprolol AdvReac Unknown made Verified 01/07/25 11:23 breathing worse when he had bronchitis Physical Examination - Knee right Appearance: effusion Effusion grade: grade 2 Tenderness with palpation: anterior, medial Pain: throughout ROM Gait: limping ROM: extension: -15 degrees ROM: flexion: 90 degrees Crepitus with motion: Yes Strength: extension: 5/5 Strength: flexion: 5/5 Meniscal tests: medial meniscal tests: positive, medial joint line pain: positive Results Patient is a well-developed well-nourished male approximately 5 foot 10, 285 pounds of endomorphic habitus. HEENT exam is nonfocal, neck is supple. He has painless passive motion of the right hip. Straight leg raise is negative. He is tender about the medial joint line of the right knee. Collateral stable, Rachna's negative, Yogesh's is equivocal. He has genu varum alignment. His distal neurovascular exam appears to be intact. - Diagnostic results Knee x-ray: image reviewed (X-rays of the right knee obtained the office show severe medial compartment osteoarthrosis with [id number] changes and subchondral sclerosis.) Assessment and Plan Assessment: Right knee severe tricompartmental osteoarthrosis Obesity COPD History of CHF Plan: I talked to the patient at length regarding his condition along with treatment options. At this point he is quite symptomatic having pain and mechanical symptoms related to his right knee osteoarthrosis despite conservative measures. After a thorough discussion he opts to proceed with surgery. We will plan to proceed with a right total knee arthroplasty. Risks and benefits were discussed at length in layman's terms. We will reinstitute his Eliquis postoperatively.
[~2025-01-12 07:45] MED LIST changes: -HYDROmorphone 0.5 MG/0.5 ML SYRINGE IVP PRN; +TRANEXAMIC 1,000 MG/100ML-NACL 1,000 MG in SALINE 1 100ML.BAG IVPB PRN
[2025-01-12] MEDS: MELOXICAM 7.5 MG TAB PO PRN (08:46)
[2025-01-12] MEDS: ACETAMINOPHEN TAB 500 MG TAB PO PRN (08:46)
[2025-01-12] MEDS: LACTATED RINGERS 1,000 ML IV SCH (08:47)
[2025-01-12] MEDS: ONDANSETRON 4 MG/2 ML VIAL IVP ONE (09:14)
[2025-01-12] MEDS: DEXAMETHASONE SOD PHOSPHATE 4 MG/ML 1 ML VIAL IV ONE (09:14)
[2025-01-12 09:15] LABS: Glucose,Whole Blood 104 mg/dL (70-110)
[2025-01-12] MEDS: IV FLUID CONTINUATION 1,000 ML IV ONE ×3 (09:20→14:18)
[2025-01-12] MEDS: MIDAZOLAM 2 MG/2 ML VIAL IV ONE (09:28)
[2025-01-12] MEDS: fentaNYL (PF) 50 MCG/ML 2 ML AMP IVP ONE (09:35)
[2025-01-12] MEDS ORDERED: ROPIVACAINE 5 MG/ML 30 ML VIAL ONE (10:04)
[2025-01-12] MEDS ORDERED: NEOSTIGMINE 1 MG/ML 10 ML VIAL ONE (10:04)
[2025-01-12] MEDS ORDERED: PHENYLEPHRINE-0.9% NACL SYG 1,000 MCG/10 ML SYRINGE ONE (10:04)
[2025-01-12] MEDS ORDERED: ROCURONIUM 10 MG/ML (5 ML VIAL) IV ONE (10:04)
[2025-01-12] MEDS ORDERED: MIDAZOLAM 2 MG/2 ML VIAL ONE (10:04)
[2025-01-12] MEDS ORDERED: fentaNYL (PF) 50 MCG/ML 2 ML AMP ONE (10:04)
[2025-01-12] MEDS ORDERED: SUCCINYLCHOLINE CHLORIDE 200 MG/10 ML VIAL IV ONE (10:04)
[2025-01-12] MEDS ORDERED: DEXAMETHASONE SOD PHOSPHATE 4 MG/ML 1 ML VIAL ONE (10:04)
[2025-01-12] MEDS ORDERED: LIDOCAINE 1% INJ 10MG/ML (20 ML MDV) ONE (10:04)
[2025-01-12] MEDS ORDERED: KETAMINE HCL IN 0.9 % NACL 50 MG/5 ML SYRINGE ONE (10:04)
[2025-01-12] MEDS ORDERED: GLYCOPYRROLATE 0.2 MG/ML 2 ML VIAL ONE (10:04)
[2025-01-12] MEDS ORDERED: PROPOFOL 10 MG/ML 20 ML VIAL IV ONE (10:04)
[2025-01-12] MEDS ORDERED: HYDROmorphone (PF) 1 MG/ML ONE (10:04)
[2025-01-12] MEDS ORDERED: TRANEXAMIC 1,000 MG/100ML-NACL PREMIX BAG ONE (10:04)
[2025-01-12] MEDS ORDERED: LABETALOL 5 MG/ML VIAL MDV ONE (10:04)
--- NOTE | 2025-01-12 10:07 | P.ANPRN ---
Procedure Note - Anesthesia - Nerve Block Performed Right iPack Single Time Out Performed: Yes Date of Procedure: 01/12/25 Procedure Start Time: : Procedure Stop Time: :33 Location of Patient: PreOp Indication: Acute Post-Operative Pain, Analgesia, Requested by Surgeon Sedation Type: Sedate with meaningful contact maintained Preparation: Sterile Prep Position: Left Lateral Catheter: None Needle Types: Pajunk Needle Gauge: 21 Ultrasound used to visualize needle placement: Yes Ultrasound used to observe medication spread: Yes Injectate: 0.5% Ropivacaine (see comment for volume) ([id number]) Blood Aspirated: No Pain Paresthesia on Injection Noted: No Resistance on Injection: Normal Image Stored and Saved: Yes Events: Uneventful and Well Tolerated
--- NOTE | 2025-01-12 10:09 | P.ANPRN ---
Procedure Note - Anesthesia - Nerve Block Performed Right Adductor Canal Infusion Time Out Performed: Yes Date of Procedure: 01/12/25 Procedure Start Time: :33 Procedure Stop Time: 09:38 Location of Patient: PreOp Indication: Acute Post-Operative Pain, Analgesia, Requested by Surgeon Sedation Type: Sedate with meaningful contact maintained Preparation: Sterile Prep Position: Supine Catheter: Indwelling Needle Types: On-Q Ultrasound used to visualize needle placement: Yes Ultrasound used to observe medication spread: Yes Injectate: 0.5% Ropivacaine (see comment for volume) ([id number]) Blood Aspirated: No Pain Paresthesia on Injection Noted: No Resistance on Injection: Normal Image Stored and Saved: Yes Events: Uneventful and Well Tolerated
[2025-01-12] MEDS: LACTATED RINGERS 1,000 ML IV ONE (10:45)
[2025-01-12] MEDS ORDERED: HYDROmorphone 0.5 MG/0.5 ML SYRINGE IVP PRN (11:46)
[2025-01-12] MEDS ORDERED: NALOXONE 0.4 MG/ML 1 ML VIAL IV PRN (11:46)
[2025-01-12] MEDS ORDERED: ONDANSETRON 4 MG/2 ML VIAL IVP PRN (11:46)
[2025-01-12] MEDS ORDERED: MAGNESIUM HYDROXIDE 2,400 MG/30 ML CUP PO PRN (11:46)
[2025-01-12] MEDS ORDERED: HYDROcodone/APAP 5-325MG 1 EACH TAB PO PRN (11:46)
[2025-01-12] MEDS ORDERED: hydrOXYzine HCL 25 MG TAB PO PRN (11:46)
--- NOTE | 2025-01-12 12:09 | P.OP ---
Date of Procedure: 01/12/25 Preoperative Diagnosis: Right knee severe tricompartmental osteoarthrosis Postoperative Diagnosis: Same Procedure(s) Performed: Right total knee arthroplastycementedposterior stabilized Implants: DePuy attune size 7 cemented femoral component, size 6 cemented tibial component with a 14 x 50 mm stem extension, 9 mm articular surface, 38 mm cemented patellar component. There is a posterior stabilized implant. Anesthesia: [facility], [facility] Surgeon: Jose Amato Production Team Advisor #1: Suleiman Jimenez Estimated Blood Loss (ml): 50 Pathology: none sent Condition: stable Disposition: PACU Indications for Procedure: The patient is a 69-year-old male who presents with progressive right knee pain secondary to osteoarthrosis despite conservative measures. A discussion of the risks and benefits of operative intervention versus continued conservative measures was made with the patient. He opted to proceed with surgery. Operative risks include infection, neurovascular injury, fracture, development of blood clots, possible component loosening/failure, possible need for subsequent procedures was discussed. Informed consent was obtained. Operative Findings: As below Description of Procedure: The patient was brought to the operating room, and after induction of spinal anesthesia the right lower extremity was prepped and draped in a normal fashion. The tourniquet was inflated to 270 mm marker. A longitudinal incision extending 3 finger breaths above the superior pole of patella extending to the medial aspect the tibial tubercle was then made. The skin and subcutaneous tissues were divided sharply. Electrocautery was used for hemostasis. A medial parapatellar arthrotomy was performed. The medial soft tissues to include the superficial and deep portions of the medial collateral ligament were elevated subperiosteally. The patella was everted. A portion of the retropatellar fat pad was excised sharply. The anterior cruciate ligament was sacrificed. Blunt retractors were placed. A starting hole was made in the distal femur 1 cm anterior to the posterior cruciate ligament origin. An intramedullary femoral guide was then inserted planning on 5 valgus distal cut with 9 mm distal resection. The cutting block was pinned in place. The distal cut was then made. The posterior referencing sizing guide was utilized. I felt size 7 was most appropriate. 3 of external rotation was built into the system and verified off the trans-epicondylar axis and the posterior condyles. The cutting block was pinned in place. The anterior, posterior, and chamfer cuts then made. Bone fragments were removed. The intercondylar guide was placed and the notch cut was made with a sagittal saw. The bone block was removed in one fragment. The trial component was then placed. There is good anterior to posterior and medial to lateral fit. The distal peg holes were drilled. The trial component was removed. Attention was then paid towards preparing the proximal tibia. An extra medullary guide was utilized in line with the tibial shaft and second metatarsal distally. I planned on 2 mm resection from the medial compartment. The cutting block was pinned in place. The proximal tibial cut was then made. The bone was removed in one fragment. The remnants of the medial and lateral menisci were excised at the capsular junction with electrocautery. The tibia sized most appropriately at size 6. The trial femoral and tibial components were placed along with a 9 mm articular surface. I was able to obtain full flexion and extension with internal and external rotation. After several flexion and extension cycles, the tibial rotation was marked with electrocautery line with the medial one third of the tibial tubercle. Attention was then paid towards preparing the patella. A patella reamer was utilized taking stem to 14 mm of bone stock. A good flush cut was made. The patella sized most appropriately 38 mm. The peg holes were drilled. The trial components placed. I had good patellofemoral tracking with no hands technique. The trial components were then removed. The tibia was prepared in the appropriate rotation with appropriate drill and keel punch planning on a 14 x 50 mm stem extension. The posterior osteophytes were removed with a curved osteotome. The flexion and extension gaps were checked and felt to be symmetric at 9 mm. A trial components were then removed. The bony surfaces were prepared with pulsatile lavage and dried. The tibial component was then cemented place was fully seated. Excess cement was removed. The femoral component cemented place and was fully seated. Excess cement was removed. The trial 9 mm articular surface was placed and the knee was put in full extension. The patella component was cemented place. After the cement had sufficiently hardened, the knee was again taken through a range of motion. Again I was able to obtain full flexion and extension with varus and valgus stress. The trial 9 mm articular surface was removed and the final one inserted. This was fully seated. Care was taken to avoid any soft tissue interposition. Pulsatile lavage was again utilized. The medial parapatellar arthrotomy was closed with #2 Ethibond suture. The tourniquet was deflated with approximately 60 minutes total tourniquet time. Final hemostasis was obtained with electrocautery. There was minimal bleeding therefore a deep drain was not placed. The subcutaneous tissues were reapproximated with interrupted 2-0 Vicryl sutures. The skin was reapproximated with 3-0 subcuticular strata fix suture. Skin tape and adhesive was applied. A sterile dressing was applied. The patient was awoken from sedation and transferred to recovery room in good condition. Blood loss was estimated at 50 mL. No complications were incurred. Sponge and needle counts were correct at the end of the case. Suleiman COLLINS assisted during the major components of this case to include exposure, bone resection, implantation, and closure.
[2025-01-12] MEDS: HYDROmorphone 0.5 MG/0.5 ML SYRINGE IVP PRN ×2 (12:29→18:02)
[2025-01-12] MEDS: ROPIVACAINE 1,100 MG, SODIUM CHLORIDE 0.9% 500 ML 330 ML, EMPTY PAIN BALL 1 EACH MISCELLANE PRN (12:32)
[2025-01-12 12:37] LABS: Glucose,Whole Blood 143 mg/dL (70-110)
--- NOTE | 2025-01-12 12:45 | XR ---
EXAMINATION TYPE: XR knee limited RT DATE OF EXAM: 01/12/2025 12:33 PM COMPARISON: None CLINICAL INDICATION: Male, 69 years old with history of Evaluation for Postop abnormality and alignme nt; PHH, pain TECHNIQUE: 2 views FINDINGS: Images show placement of right total knee arthroplasty. Both distal femoral and proximal ti bial components of the prosthesis are well seated without periprosthetic fracture. Alignment grossly anatomic. Anterior soft tissue swelling with soft tissue air as well as intra-articular air related t o recent operation. IMPRESSION: Uncomplicated postoperative appearance right total knee arthroplasty. [facility], Workstation: [facility], 01/12/2025 12:43 PM
[2025-01-12] MEDS: droPERidol 2.5 MG/ML VIAL IVP STA (12:48)
[2025-01-12] MEDS: SODIUM CHLORIDE 0.9% 1,000 ML IV SCH (13:30)
[2025-01-12 17:31] VITALS: RESP 18
[2025-01-12] MEDS: APIXABAN 5 MG TAB PO SCH (20:41)
[2025-01-12] MEDS: SENNOSIDES-DOCUSATE SODIUM 1 EACH TAB PO SCH (20:41)
[2025-01-12] MEDS: HYDROcodone/APAP 10-325MG 1 EACH TAB PO PRN (20:42)
[2025-01-12 20:46] LABS: Glucose,Whole Blood 179 mg/dL (70-110)
[2025-01-13 06:28] LABS: Glucose,Whole Blood 138 mg/dL (70-110)
[2025-01-13 07:17] VITALS: BP 112/70; PULSE 66; TEMP 97.7
[2025-01-13 10:38] LABS: Basophils # (A) 0.02 X 10*3/uL (0.00-0.10); Basophils % (A) 0.2 %; Eosinophils # (A) 0 X 10*3/uL (0.04-0.35); Eosinophils % (A) 0 %; HCT 40.4 % (39.6-50.0); HGB 12.8 g/dL (13.0-17.0); Immature Grans, Automated 0.60 %; Lymphocytes # (A) 0.78 X 10*3/uL (0.90-5.00); Lymphocytes % (A) 6.8 %; MCH 28.3 pg (27.0-32.0); MCHC 31.7 g/dL (32.0-37.0); MCV 89.2 FL (80.0-97.0); Monocytes # (A) 0.77 X 10*3/uL (0.20-1.00); Monocytes % (A) 6.7 %; NRBC Per 100 WBC 0 X 10*3/uL (0.00-0.01); Neutrophils # (A) 9.91 X 10*3/uL (1.80-7.70); Neutrophils % (A) 85.7 %; Platelet Count 169 X 10*3/uL (140-440); RBC 4.53 X 10*6/uL (4.40-5.60); RDW 12.6 % (11.5-14.5); WBC 11.55 X 10*3/uL (4.50-10.00)
[2025-01-13] MEDS ORDERED: ALBUTEROL NEBULIZED 2.5 MG/3 ML INHALATION PRN (10:42)
[2025-01-13 11:29] LABS: Glucose,Whole Blood 130 mg/dL (70-110)
--- NOTE | 2025-01-13 11:54 | P.DS ---
Providers Date of admission: 01/12/2025 Expected date of discharge: 01/13/25 Attending physician: Jose Amato Consults: 01/12/25 11:46 Consult Physician Routine Consulting Provider: Jt John Consult Reason/Comments: medical management s/p right total knee arthroplasty Do you want consulting provider notified?: Yes Primary care physician: Edwin Reid MD Hospital Course: Date of admission: 01/12/2025 Date of discharge: 01/13/2025 Admission diagnosis: Right knee osteoarthritis Discharge diagnosis: Same Attending physician: Dr. Amato Surgical procedures: Right total knee arthroplasty Brief history: Patient is a 69-year-old male with a history of progressive primary knee osteoarthritis. At this point patient has failed conservative treatment measures and has opted to proceed with a elective right total knee arthroplasty. Hospital course: Details of patient's surgery can be found in operative report. Patient tolerated the procedure well and was subsequently transported to orthopedic floor. Patient's orthopeidc and medical care was provided daily. Patient had daily laboratory tests performed for evaluation of overall blood counts. Patient had daily physical therapy to include strengthening range of motion as well as education with walker ambulation. Patient was treated with Eliquis for their postoperative DVT prophylaxis during their inpatient stay. Patient was noted to have a relatively uneventful postoperative course. Patient reported satisfactory pain control with oral pain medications by postoperative day 1. Patient showed satisfactory progress with physical therapy. Patient moved steadily through the program and had no difficulty meeting the goals by postoperative day 1. Given patient's otherwise satisfactory course and having met physical therapy goals, plan is to discharge patient home with health services on postoperative day 1. Discharge condition/disposition: Patient will be discharged home health services in stable condition. Discharge medications: Instructions are given on resumption of patient's normal daily medications per primary care recommendation, in addition patient will be prescribed [place]; senna; resume Eliquis 5 mg twice daily once home. Discharge instructions: 1. Wound care and infection precautions, keep incision dry and covered while showering, no lotions, creams, moisturizers. No soaking, tubs, pools, hottubs. Do not scrub over the incision. 2. Weight-bear as tolerated with walker / cane until follow-up. 3. Ice and elevate when necessary. Do not exceed 20 minutes per hour with ice pack. 4. Utilize compression sleeve until seen at first follow up appointment. 5. Visiting nursing care. 6. Home physical therapy including home CPM. 7. Pain meds and anticoagulants per prescription. 8. Pain medication has potential to cause constipation. Increase oral fluid and fiber intake. Contact primary care provider if you have not had a bowel movement within 48 hours after discharge 9. No anti-inflammatory medication until discussed at first post operative visit, this including Motrin, Aleve, Mobic, Diclofenac. 10. Follow up in office at 2 weeks postop with Roberto Ybarra PA-C / Suleiman Jimenez PA-C 11. Follow up with your primary care doctor 7-10 days after discharge. 12. Contact [facility] with any questions, . Assessment: Right knee osteoarthritis Procedures: Right total knee arthroplasty Patient Condition at Discharge: Good Plan - Discharge Summary Discharge Rx Participant: Yes New Discharge Prescriptions: New HYDROcodone/APAP 10-325MG [[place] 10-325] 1 tab PO Q6HR PRN #28 tab PRN Reason: Pain Sennosides/Docusate Sodium [Senna Plus 8.6-50 mg Softgel] 1 each PO DAILY #20 capsule Continue Apixaban [Eliquis] 5 mg PO BID No Action Meloxicam 15 mg PO QAM Pantoprazole [Protonix] 40 mg PO QAM Lisinopril-Hctz 20-12.5 mg [Zestoretic 20-12.5] 1 tab PO QAM Potassium Chloride ER [K-Dur 10] 10 meq PO DAILY Tamsulosin [Flomax] 0.4 mg PO DAILY Baclofen 20 mg PO BID DULoxetine HCL [Cymbalta] 30 mg PO DAILY Morphine Pump 0.163 mg INTRATHECA CONTINUOUS metFORMIN HCL [Glucophage] 500 mg PO QAM Gabapentin [Neurontin] 800 mg PO TID Umeclidinium Brm/Vilanterol Tr [Anoro Ellipta 62.5-25 Mcg INH] 1 puff INHALATION DAILY Albuterol Inhaler [Ventolin Hfa Inhaler] 1 - 2 puff INHALATION Q6H PRN PRN Reason: Shortness Of Breath Empagliflozin [Jardiance] 10 mg PO DAILY Furosemide [Lasix] 40 mg PO DAILY Discharge Medication List Meloxicam 15 mg PO QAM 07/08/20 [History] Pantoprazole [Protonix] 40 mg PO QAM 07/03/21 [History] Apixaban [Eliquis] 5 mg PO BID 09/19/23 [History] metFORMIN HCL [Glucophage] 500 mg PO QAM 09/19/23 [History] Gabapentin [Neurontin] 800 mg PO TID 09/24/23 [History] Lisinopril-Hctz 20-12.5 mg [Zestoretic 20-12.5] 1 tab PO QAM 09/26/23 [History] Albuterol Inhaler [Ventolin Hfa Inhaler] 1 - 2 puff INHALATION Q6H PRN 01/07/25 [History] Baclofen 20 mg PO BID 01/07/25 [History] DULoxetine HCL [Cymbalta] 30 mg PO DAILY 01/07/25 [History] Empagliflozin [Jardiance] 10 mg PO DAILY 01/07/25 [History] Furosemide [Lasix] 40 mg PO DAILY 01/07/25 [History] Morphine Pump 0.163 mg INTRATHECA CONTINUOUS 01/07/25 [History] Potassium Chloride ER [K-Dur 10] 10 meq PO DAILY 01/07/25 [History] Tamsulosin [Flomax] 0.4 mg PO DAILY 01/07/25 [History] Umeclidinium Brm/Vilanterol Tr [Anoro Ellipta 62.5-25 Mcg INH] 1 puff INHALATION DAILY 01/07/25 [History] HYDROcodone/APAP 10-325MG [[place] 10-325] 1 tab PO Q6HR PRN #28 tab 01/13/25 [Rx] Sennosides/Docusate Sodium [Senna Plus 8.6-50 mg Softgel] 1 each PO DAILY #20 capsule 01/13/25 [Rx] Follow up Appointment(s)/Referral(s): Suleiman Jimenez, TYRONE [PHYSICIAN CHIEF SCIENTIST] - 2 Weeks [facility],Equipment [NON-STAFF] - As Needed (Continuous Passive Motion knee machine and walker) [facility], [NON-STAFF] - As Needed Patient Instructions/Handouts: Knee Replacement (GEN) Activity/Diet/Wound Care/Special Instructions: Orthopedic Discharge Instructions: 1. Wound care and infection precautions, keep incision dry and covered while showering, no lotions, creams, moisturizers. No soaking, pools, hot tubs. Do not scrub over incision. 2. Weight-bear as tolerated with walker / cane until follow-up. 3. Ice and elevate when necessary. Do not exceed 20 minutes per hour with ice pack. 4. Utilize compression sleeve until seen at first follow up appointment. 5. Pain meds and anticoagulants per prescription. 6. Pain medication has potential to cause constipation. Increase oral fluid and fiber intake. Contact primary care provider if you have not had a bowel movement within 48 hours after discharge. 7. No anti-inflammatory medication until discussed at first post operative visit, this including Motrin, Aleve, Mobic, Diclofenac. 8. Follow up in office at 2 weeks postop with Roberto Ybarra PA-C / Suleiman Jimenez PA-C 9. Follow up with your primary care doctor 7-10 days after discharge. 10. Contact [facility] with any questions, . Keep incision clean, dry, intact. While showering, cover fusion tape with Saran wrap. Keep fusion tape on until follow-up appointment in office in 2 weeks. Discharge Disposition: HOME WITH HOME HEALTH SERVICES
--- NOTE | 2025-01-13 11:57 | P.PN ---
Subjective Progress Note Date: 01/13/25 Principal diagnosis: Right knee osteoarthritis Patient was seen at bedside this morning sitting up in chair with dressing present over right knee. Patient says he finished working with therapy this morning walked down the [place] [address] and up on steps. He says he is looking forward to going home. He says he does need a walker for home. He says he has been urinating on his own without any issue since surgery yesterday. Patient denies any other issues at this time. Objective - Vital Signs Vital signs: Vital Signs Temp 97.7 F 01/13/25 07:16 Pulse 66 01/13/25 08:00 Resp 18 01/13/25 08:00 BP 112/70 01/13/25 07:16 Pulse Ox 96 01/13/25 07:16 FiO2 45 01/12/25 09:55 Intake & Output 01/12/25 01/13/25 01/13/25 18:59 06:59 18:59 Intake Total 2550 Output Total 50 2000 Balance 2500 -2000 Weight 128.8 kg Intake: IV 2150 Intake, IV Titration 350 Amount Sodium Chloride 0.9% 1, 350 000 ml @ 70 mls/hr IV . [id number] [facility] Rx#:[id number] Oral 50 Output: Urine 2000 Estimated Blood Loss 50 Other: Voiding Method Urinal Urinal # Voids 0 - Exam Right knee: Incision is clean, dry, and intact. The exofin fusion tape is in good condition. There is minimal soft tissue swelling and ecchymosis surrounding the medial and lateral aspects of the incision. Calf is soft, no tenderness with palpation. Plantar flexion, dorsiflexion, EHL, FHL are intact. Sensory exam to light touch throughout the extremity is intact, dorsal pedis pulses 2+. - Labs CBC & Chem 7: 01/13/25 05:51 Labs: Abnormal Lab Results - Last 24 Hours (Table) 01/12/25 01/12/25 01/13/25 Range/Units 12:36 20:45 05:51 WBC 11.55 H (4.50-10.00) X 10*3/uL Hgb 12.8 L (13.0-17.0) g/dL MCHC 31.7 L (32.0-37.0) g/dL Immature Gran # 0.07 H (0.00-0.04) X 10*3/uL Neutrophils # 9.91 H (1.80-7.70) X 10*3/uL Lymphocytes # 0.78 L (0.90-5.00) X 10*3/uL Eosinophils # 0 L (0.04-0.35) X 10*3/uL POC Glucose (mg/dL) 143 H 179 H (70-110) mg/dL 01/13/25 01/13/25 Range/Units 06:26 11:28 WBC (4.50-10.00) X 10*3/uL Hgb (13.0-17.0) g/dL MCHC (32.0-37.0) g/dL Immature Gran # (0.00-0.04) X 10*3/uL Neutrophils # (1.80-7.70) X 10*3/uL Lymphocytes # (0.90-5.00) X 10*3/uL Eosinophils # (0.04-0.35) X 10*3/uL POC Glucose (mg/dL) 138 H 130 H (70-110) mg/dL Assessment and Plan Assessment: 1. Right knee osteoarthritis -Postop day 1 status post right total knee arthroplasty Plan: 1. Right knee osteoarthritis -right total knee arthroplasty performed yesterday, 01/12/2025. Patient stable bedside this morning. Patient did well with therapy this morning. Pain medication as needed. Prescription for walker was signed. Discharge home today with health services. 2. Appreciate medical management 3. Pain management -Mor[place] 4. GI prophylaxis -senna 5. DVT prophylaxis -Eliquis 6. PT/OT -weightbearing as tolerated with walker 7. Encourage incentive spirometer use 8. Discharge planning -discharge home today with health services. Time with Patient: Less than 30
[2025-01-13] MEDS: FORMOTEROL FUMARATE 20 MCG/2 ML NEBU INHALATION SCH (12:06)
[2025-01-13] MEDS: TAMSULOSIN 0.4 MG CAP.ER.24H PO SCH (12:54)
[2025-01-13] MEDS: GABAPENTIN 400 MG CAP PO SCH (12:55)
[2025-01-13] MEDS: DAPAGLIFLOZIN PROPANEDIOL 5 MG TABLET PO SCH (12:55)
--- NOTE | 2025-01-13 13:21 | P.CONS ---
History of Present Illness - Reason for Consult Consult date: 01/13/25 Medical management - History of Present Illness History of present illness; patient 69-year-old gentleman with past medical history significant for atrial fibrillation, diabetes mellitus, hypertension who presented the hospital for elective right total knee arthroplasty. Patient has been following up outpatient with orthopedics for right knee pain, pain has been progressing, patient had tried all conservative measures with therapy and pain medications but they have failed. Decision was made to proceed with right total knee arthroplasty which was done on 01/12. Postoperatively internal medicine team were consulted for medical management REVIEW OF SYSTEMS: CONSTITUTIONAL: No fever, no malaise, no fatigue. HEENT: No recent visual problems or hearing problems. Denied any sore throat. CARDIOVASCULAR: No chest pain, orthopnea, PND, no palpitations, no syncope. PULMONARY: No shortness of breath, no cough, no hemoptysis. GASTROINTESTINAL: No diarrhea, no nausea, no vomiting, no abdominal pain. NEUROLOGICAL: No headaches, no weakness, no numbness. HEMATOLOGICAL: Denies any bleeding or petechiae. GENITOURINARY: Denies any burning micturition, frequency, or urgency. MUSCULOSKELETAL/RHEUMATOLOGICAL: Right knee pain ENDOCRINE: Denies any polyuria or polydipsia. The rest of the 14-point review of systems is negative. PHYSICAL EXAMINATION: GENERAL: The patient is alert and oriented x3, not in any acute distress. Well developed, well nourished. HEENT: Pupils are round and equally reacting to light. EOMI. No scleral icterus. No conjunctival pallor. Normocephalic, atraumatic. No pharyngeal erythema. No thyromegaly. CARDIOVASCULAR: S1 and S2 present. No murmurs, rubs, or gallops. PULMONARY: Chest is clear to auscultation, no wheezing or crackles. ABDOMEN: Soft, nontender, nondistended, normoactive bowel sounds. No palpable organomegaly. MUSCULOSKELETAL: Right knee surgical incision seen EXTREMITIES: No cyanosis, clubbing, or pedal edema. NEUROLOGICAL: Gross neurological examination did not reveal any focal deficits. SKIN: No rashes. Assessment and plan Right knee severe osteoarthritis status post right total knee arthroplasty History of atrial fibrillation History of COPD History of hypertension History hyperlipidemia Obesity Monitor vital signs Monitor CBC Continue pain management per orthopedics Continue DVT prophylaxis per orthopedics Aggressive bowel regimen to prevent opioid-induced constipation Resume Flomax Resume Zestoretic Resume metformin Resume Anoro and as needed albuterol Resume home meds PT and OT consulted Labs and medication were reviewed.. Continue same treatment. Continue with symptomatic treatment. Resume home medication. Monitor labs and vitals. DVT and GI prophylaxis. Further recommendations as per clinical course of the patient Dictation was produced using [employer] dictation software. please excuse any grammatical, word or spelling errors. Past Medical History Past Medical History: Atrial Fibrillation, COPD, Diabetes Mellitus, GERD/Reflux, Hypertension, Osteoarthritis (OA), Skin Disorder, Sleep Apnea/CPAP/BIPAP Additional Past Medical History / Comment(s): Occasional PVC's. Chronic back pain-has Morphine Pump. Hx cellulitis in legs multiple times. psoriasis & ros acea. no CPAP. History of Any Multi-Drug Resistant Organisms: None Reported Past Surgical History: Heart Catheterization, Hernia Repair, Joint Replacement, Orthopedic Surgery Additional Past Surgical History / Comment(s): BILATERAL HAND SX, RIGHT FOOT SX X3 bone spurs, left knee arthroscopy, left knee replacement, TOTAL RIGHT HIP REPLACEMENT, COLONOSCOPY, GRAPEFRUIT SIZED CYST REMOVED FROM TAILBONE AREA, BILATERAL CATARACT SURGERY. right thigh lipoma removed. right hand carpal tunnel surg. Past Anesthesia/Blood Transfusion Reactions: No Reported Reaction Past Psychological History: No Psychological Hx Reported Smoking Status: Former smoker Past Alcohol Use History: Occasional Additional Past Alcohol Use History / Comment(s): STARTED SMOKING AT AGE 17, QUIT IN THE , SMOKED 1PPD. Past Drug Use History: Marijuana Additional Drug Use History / Comment(s): MARIJUANA OCCASIONAL USE. VAPES THC. - Past Family History Mother Family Medical History: Cancer Additional Family Medical History / Comment(s): ovarian Sister(s) Family Medical History: Cancer Additional Family Medical History / Comment(s): skin Medications and Allergies Home Medications Medication Instructions Recorded Confirmed Type Meloxicam 15 mg PO QAM 07/08/20 01/07/25 History Pantoprazole [Protonix] 40 mg PO QAM 07/03/21 01/07/25 History Apixaban [Eliquis] 5 mg PO BID 09/19/23 01/07/25 History metFORMIN HCL [Glucophage] 500 mg PO QAM 09/19/23 01/07/25 History Gabapentin [Neurontin] 800 mg PO TID 09/24/23 01/07/25 History Lisinopril-Hctz 20-12.5 mg 1 tab PO QAM 09/26/23 01/07/25 History [Zestoretic 20-12.5] Albuterol Inhaler [Ventolin Hfa 1 - 2 puff INHALATION Q6H PRN 01/07/25 01/07/25 History Inhaler] Baclofen 20 mg PO BID 01/07/25 01/07/25 History DULoxetine HCL [Cymbalta] 30 mg PO DAILY 01/07/25 01/07/25 History Empagliflozin [Jardiance] 10 mg PO DAILY 01/07/25 01/07/25 History Furosemide [Lasix] 40 mg PO DAILY 01/07/25 01/07/25 History Morphine Pump 0.163 mg INTRATHECA CONTINUOUS 01/07/25 History Potassium Chloride ER [K-Dur 10] 10 meq PO DAILY 01/07/25 01/07/25 History Tamsulosin [Flomax] 0.4 mg PO DAILY 01/07/25 01/07/25 History Umeclidinium Brm/Vilanterol Tr 1 puff INHALATION DAILY 01/07/25 01/07/25 History [Anoro Ellipta 62.5-25 Mcg INH] Allergies Allergy/AdvReac Type Severity Reaction Status Date / Time celecoxib [From Celebrex] Allergy sores and Verified 01/12/25 08:41 bleeding in his mouth metoprolol AdvReac Unknown made Verified 01/12/25 08:41 breathing worse when he had bronchitis Physical Exam Vitals: Vital Signs Temp Pulse Resp BP Pulse Ox 01/13/25 08:00 66 18 01/13/25 07:16 97.7 F 66 18 112/70 96 01/13/25 00:48 98.6 F 77 18 114/79 95 01/12/25 19:55 98.3 F 64 18 124/85 97 01/12/25 16:46 97.9 F 82 18 132/84 01/12/25 14:18 94 L 01/12/25 14:10 105 H 14 135/96 100 01/12/25 13:55 101 H 13 119/96 01/12/25 13:40 95 15 127/77 100 01/12/25 13:25 83 135/91 100 01/12/25 13:10 86 18 129/114 100 01/12/25 12:55 98 20 127/116 93 L 01/12/25 12:40 99 24 113/97 100 01/12/25 12:25 104 H 15 137/123 93 L 01/12/25 12:10 97 F L 100 16 118/97 96 Intake and Output 01/12/25 01/13/25 01/13/25 22:59 06:59 14:59 Intake Total 400 Output Total 600 1400 Balance -200 -1400 Intake: Intake, IV Titration 350 Amount Sodium Chloride 0.9% 1, 350 000 ml @ 70 mls/hr IV . [id number] Rx#:[id number] Oral 50 Output: Urine 600 1400 Other: Voiding Method Urinal Urinal # Voids 0 Results CBC & Chem 7: 01/13/25 05:51 Labs: Abnormal Lab Results - Last 24 Hours (Table) 01/12/25 01/12/25 01/13/25 Range/Units 12:36 20:45 05:51 WBC 11.55 H (4.50-10.00) X 10*3/uL Hgb 12.8 L (13.0-17.0) g/dL MCHC 31.7 L (32.0-37.0) g/dL Immature Gran # 0.07 H (0.00-0.04) X 10*3/uL Neutrophils # 9.91 H (1.80-7.70) X 10*3/uL Lymphocytes # 0.78 L (0.90-5.00) X 10*3/uL Eosinophils # 0 L (0.04-0.35) X 10*3/uL POC Glucose (mg/dL) 143 H 179 H (70-110) mg/dL 01/13/25 Range/Units 06:26 WBC (4.50-10.00) X 10*3/uL Hgb (13.0-17.0) g/dL MCHC (32.0-37.0) g/dL Immature Gran # (0.00-0.04) X 10*3/uL Neutrophils # (1.80-7.70) X 10*3/uL Lymphocytes # (0.90-5.00) X 10*3/uL Eosinophils # (0.04-0.35) X 10*3/uL POC Glucose (mg/dL) 138 H (70-110) mg/dL
[2025-01-14] MEDS ORDERED: PANTOPRAZOLE 40 MG TABLET PO SCH (07:30)
[2025-01-14] MEDS ORDERED: TIOTROPIUM 2.5 MCG INHALER INHALATION SCH (08:00)
[2025-01-14] MEDS ORDERED: metFORMIN 500 MG TAB PO SCH (09:00)
[2025-01-14] MEDS ORDERED: LISINOPRIL-HCTZ 20-12.5 MG 1 EACH TAB PO SCH (09:00)
== END 2025-01-13 14:04 | disposition home health service (06) ==
LOC: OR 07:45 → 4SSUR 12:02 → OR 01-13 14:04
PROVIDERS: ATTEND Orthopaedic Surgery
DX: M17.11 Unilateral primary osteoarthritis, right knee (principal); M21.161 Varus deformity, not elsewhere classified, right knee; G89.18 Other acute postprocedural pain; I48.19 Other persistent atrial fibrillation; E11.22 Type 2 diabetes mellitus with diabetic chronic kidney disease; I13.0 Hypertensive heart and chronic kidney disease with heart failure and stage 1 through stage 4 chronic kidney disease, or unspecified chronic kidney disease; I50.22 Chronic systolic (congestive) heart failure; N18.2 Chronic kidney disease, stage 2 (mild); I42.0 Dilated cardiomyopathy; I25.10 Atherosclerotic heart disease of native coronary artery without angina pectoris; E78.5 Hyperlipidemia, unspecified; G47.33 Obstructive sleep apnea (adult) (pediatric); J44.9 Chronic obstructive pulmonary disease, unspecified; I34.0 Nonrheumatic mitral (valve) insufficiency; I49.3 Ventricular premature depolarization; E11.59 Type 2 diabetes mellitus with other circulatory complications; E11.40 Type 2 diabetes mellitus with diabetic neuropathy, unspecified; K21.9 Gastro-esophageal reflux disease without esophagitis; L40.9 Psoriasis, unspecified; L71.9 Rosacea, unspecified; F30.4 Manic episode in full remission; R91.8 Other nonspecific abnormal finding of lung field; E66.01 Morbid (severe) obesity due to excess calories; Z68.39 Body mass index [BMI] 39.0-39.9, adult; Z79.01 Long term (current) use of anticoagulants; Z79.84 Long term (current) use of oral hypoglycemic drugs; Z79.891 Long term (current) use of opiate analgesic; Z79.51 Long term (current) use of inhaled steroids; Z79.899 Other long term (current) drug therapy; Z87.891 Personal history of nicotine dependence; Z96.652 Presence of left artificial knee joint; Z96.641 Presence of right artificial hip joint; Z96.89 Presence of other specified functional implants; Z88.6 Allergy status to analgesic agent; Z88.8 Allergy status to other drugs, medicaments and biological substances; Z82.49 Family history of ischemic heart disease and other diseases of the circulatory system
CPT/HCPCS: 27447; 64448; 64473; 97161; 85025; 73560; C1713 ×2; C1776; C1751; J2250; J0330; J1100; J2710; J0690 ×2; J2405; J2003; J3010; J1171 ×3; J2795; J2704; J2371; J1920; J1596; J1790

== ENCOUNTER 2025-01-18 15:29 | Observation (INO) | payer MEDICARE, OTHER ==
--- NOTE | 2025-01-18 15:47 | ED ---
General Adult HPI - General Chief complaint: Extremity Problem,Nontraumatic Stated complaint: Eddie leg swelling Time Seen by Provider: 01/18/25 15:34 Source: patient, RN notes reviewed Mode of arrival: ambulatory Limitations: no limitations - History of Present Illness Initial comments: 69-year-old male with a history of A-fib on Eliquis, hypertension and hyperlipidemia presenting to emergency department with complaints of right knee and lower extremity pain, erythema and edema that he noticed this morning. Patient states that he had a total knee replacement of his grayling joint on 01/13/[address] Amato (of [facility]). Patient had physical therapy this morning and therapist was concerned that the area may be infected and patient also noticed this morning the area was red, warm to the touch and swollen. He states he has a history of cellulitis and states this feels the same. He denies fevers, chills, nausea, vomiting. He denies calf pain, chest pain, dyspnea, palpitations. States he has been taking his Eliquis as prescribed. Denies current antibiotic use. Denies history of diabetes. - Related Data Home Medications Medication Instructions Recorded Confirmed Meloxicam 15 mg PO DAILY 07/08/20 01/18/25 Pantoprazole [Protonix] 40 mg PO DAILY 07/03/21 01/18/25 Apixaban [Eliquis] 5 mg PO BID 09/19/23 01/18/25 Lisinopril-Hctz 20-12.5 mg 1 tab PO DAILY 09/26/23 01/18/25 [Zestoretic 20-12.5] Albuterol Inhaler [Ventolin Hfa 2 puff INHALATION RT-Q6H PRN 01/07/25 01/18/25 Inhaler] DULoxetine HCL [Cymbalta] 30 mg PO DAILY 01/07/25 01/18/25 Empagliflozin [Jardiance] 10 mg PO DAILY 01/07/25 01/18/25 Furosemide [Lasix] 40 mg PO DAILY 01/07/25 01/18/25 Potassium Chloride ER [K-Dur 10] 10 meq PO DAILY 01/07/25 01/18/25 Tamsulosin [Flomax] 0.4 mg PO DAILY 01/07/25 01/18/25 Umeclidinium Brm/Vilanterol Tr 1 puff INHALATION RT-DAILY 01/07/25 01/18/25 [Anoro Ellipta 62.5-25 Mcg INH] Baclofen [Lioresal] 20 mg PO BID 01/18/25 01/18/25 Fluticasone/Umeclidin/Vilanter 1 puff INHALATION RT-DAILY 01/18/25 01/18/25 [Trelegy Ellipta 100-62.5-25] Gabapentin 800 mg PO TID 01/18/25 01/18/25 Hydrocortisone Lotion [Hytone 2.5% 1 applic TOPICAL DAILY 01/18/25 01/18/25 Lotion] Patient Own Pump 0 bag 01/18/25 Sennosides/Docusate Sodium [Senna 1 tab PO DAILY 01/18/25 01/18/25 Plus 8.6-50 mg Softgel] Previous Rx's Medication Instructions Recorded HYDROcodone/APAP 10-325MG [[place] 1 tab PO Q6HR PRN #28 tab 01/13/25 10-325] Allergies Allergy/AdvReac Type Severity Reaction Status Date / Time celecoxib [From Celebrex] Allergy sores and Verified 01/18/25 16:28 bleeding in his mouth metoprolol AdvReac Unknown made Verified 01/18/25 16:28 breathing worse when he had bronchitis Review of Systems ROS Statement: Those systems with pertinent positive or pertinent negative responses have been documented in the HPI. ROS Other: All systems not noted in ROS Statement are negative. Past Medical History Past Medical History: Atrial Fibrillation, COPD, Diabetes Mellitus, GERD/Reflux, Hypertension, Osteoarthritis (OA), Skin Disorder, Sleep Apnea/CPAP/BIPAP Additional Past Medical History / Comment(s): Occasional PVC's. Chronic back pain-has Morphine Pump. Hx cellulitis in legs multiple times. psoriasis & rosacea. no CPAP. History of Any Multi-Drug Resistant Organisms: None Reported Past Surgical History: Heart Catheterization, Hernia Repair, Joint Replacement, Orthopedic Surgery Additional Past Surgical History / Comment(s): BILATERAL HAND SX, RIGHT FOOT SX X3 bone spurs, left knee arthroscopy, left knee replacement, TOTAL RIGHT HIP REPLACEMENT, COLONOSCOPY, GRAPEFRUIT SIZED CYST REMOVED FROM TAILBONE AREA, EDDIE ATERAL CATARACT SURGERY. right thigh lipoma removed. right hand carpal tunnel surg. Past Anesthesia/Blood Transfusion Reactions: No Reported Reaction Past Psychological History: No Psychological Hx Reported Smoking Status: Former smoker Past Alcohol Use History: Occasional Past Drug Use History: Marijuana - Past Family History Mother Family Medical History: Cancer Additional Family Medical History / Comment(s): ovarian Sister(s) Family Medical History: Cancer Additional Family Medical History / Comment(s): skin General Exam Limitations: no limitations Cardiovascular Exam: Present: regular rate, normal rhythm, normal heart sounds. Absent: systolic murmur, diastolic murmur, rubs, gallop, clicks GI/Abdominal exam: Present: soft, normal bowel sounds. Absent: distended, tenderness, guarding, rebound, rigid Right Knee exam: Present: tenderness, swelling, erythema, effusion. Absent: full ROM Lower Leg exam: Present: tenderness, swelling, erythema Neurovascular tendon exam: Present: no vascular compromise Back exam: Present: normal inspection Course Vital Signs 01/18/25 01/18/25 15:30 18:05 Temperature 98.0 F 97.8 F Pulse Rate 62 87 Respiratory 18 18 Rate Blood Pressure 141/90 120/64 O2 Sat by Pulse 99 94 L Oximetry Medical Decision Making - Medical Decision Making Was pt. sent in by a medical professional or institution (Dr. PA, SPA THERAPIST, urgent care, hospital, or fci...) When possible be specific @ -No Did you speak to anyone other than the patient for history (EMS, parent, family, police, friend...)? What history was obtained from this source @ -No Did you review nursing and triage notes (agree or disagree)? Why? @ -I reviewed and agree with nursing and triage notes Were old charts reviewed (outside hosp., previous admission, EMS record, old EKG, old radiological studies, urgent care reports/EKG's, fci records)? Report findings @ -No old charts were reviewed Differential Diagnosis (chest pain, altered mental status, abdominal pain women, abdominal pain men, vaginal bleeding, weakness, fever, dyspnea, syncope, headache, dizziness, GI bleed, back pain, seizure, CVA, palpatations, mental health, musculoskeletal)? @ -Cellulitis, septic joint, septic arthritis, this is not all-inclusive EKG interpreted by me (3pts min.). @ -none X-rays interpreted by me (1pt min.). @ -X-ray of the right knee reveals no acute osseous abnormality with a large joint effusion CT interpreted by me (1pt min.). @ -None done U/S interpreted by me (1pt. min.). @ -None done What testing was considered but not performed or refused? (CT, X-rays, U/S, labs)? Why? @ -None What meds were considered but not given or refused? Why? @ -None Did you discuss the management of the patient with other professionals (professionals i.e. , PA, SPA THERAPIST, lab, RT, psych nurse, social science manager, media traffic manager, teacher, cash management officer, disease case manager rn)? Give summary @ -I spoke with Dr. velasco who was agreed to admit the patient with orthopedics and infectious disease on consult. Was smoking cessation discussed for >3mins.? @ -No Was critical care preformed (if so, how long)? @ -No Were there social determinants of health that impacted care today? How? (Homelessness, low income, unemployed, alcoholism, drug addiction, transportation, low edu. Level, literacy, decrease access to med. care, fci, rehab)? @ -No Was there de-escalation of care discussed even if they declined (Discuss DNR or withdrawal of care, Hospice)? DNR status @ -No What co-morbidities impacted this encounter? (DM, HTN, Smoking, COPD, CAD, Cancer, CVA, ARF, Chemo, Hep., AIDS, mental health diagnosis, sleep apnea, morbid obesity)? @ -None Was patient admitted / discharged? Hospital course, mention meds given and route, prescriptions, significant lab abnormalities, going to OR and other pertinent info. @ -Admitted. 69-year-old male presenting to the ER with complaints of right knee pain and swelling. Patient has a postsurgical incision vertically over the knee that is erythematous and tender to the touch. Patient's lower extremity is swollen, erythematous, warm to the touch. Vitals are stable. He is provided with morphine for pain relief. Patient laboratory testing is unremarkable including CBC and CMP. X-ray imaging reveals a joint effusion. With concern for severity of cellulitis and recent total knee replacement patient will be admitted and started on IV antibiotics. Patient is placed on vancomycin and cefepime. Consult placed to orthopedic and infectious disease. Patient is admitted to Dr. Velasco. Case discussed with my attending Dr. Roskopp Undiagnosed new problem with uncertain prognosis? @ -No Drug Therapy requiring intensive monitoring for toxicity (Heparin, Nitro, Insulin, Cardizem)? @ -No Were any procedures done? @ -No Diagnosis/symptom? @ -Cellulitis of the right knee Acute, or Chronic, or Acute on Chronic? @ -Acute Uncomplicated (without systemic symptoms) or Complicated (systemic symptoms)? @ -Complicated Side effects of treatment? @ -No Exacerbation, Progression, or Severe Exacerbation? @ -No Poses a threat to life or bodily function? How? (Chest pain, [place], ND, pneumonia, PE, COPD, DKA, ARF, appy, cholecystitis, CVA, Diverticulitis, Homicidal, S uicidal, threat to staff... and all critical care pts) @ -No - Lab Data Result diagrams: 01/18/25 16:25 01/18/25 16:25 Lab Results 01/18/25 01/18/25 01/18/25 Range/Units 16:25 16:25 16:25 WBC 6.93 (4.50-10.00) 10*3/uL RBC 4.04 L (4.40-5.60) 10*6/uL Hgb 11.6 L (13.0-17.0) g/dL Hct 35.9 L (39.6-50.0) % MCV 88.9 (80.0-97.0) fL MCH 28.7 (27.0-32.0) pg MCHC 32.3 (32.0-37.0) g/dL Plt Count 206 (140-440) 10*3/uL MPV 9.2 L (9.5-12.2) fL Immature Gran % (Auto) 1.3 % Neutrophils % 67.9 % Lymphocytes % 20.3 % Monocytes % 10.2 % Eosinophils % 0.0 % Basophils % 0.3 % Immature Gran # 0.09 H (0.00-0.04) 10*3/uL Neutrophils # 4.70 (1.80-7.70) 10*3/uL Lymphocytes # 1.41 (0.90-5.00) 10*3/uL Monocytes # 0.71 (0.20-1.00) 10*3/uL Eosinophils # 0.00 L (0.04-0.35) 10*3/uL Basophils # 0.02 (0.00-0.10) 10*3/uL Sodium 137 (137-145) mmol/L Potassium 4.1 (3.5-5.1) mmol/L Chloride 97 L (98-107) mmol/L Carbon Dioxide 32 H (22-30) mmol/L Anion Gap 8 mmol/L BUN 17 (9-20) mg/dL Creatinine 0.62 L (0.66-1.25) mg/dL Est GFR (CKD-EPI)AfAm >90 (>60 ml/min/1.73 sqM) Est GFR (CKD-EPI)NonAf >90 (>60 ml/min/1.73 sqM) Glucose 105 H (74-99) mg/dL Plasma Lactic Acid Gregory 1.5 (0.7-2.0) mmol/L Calcium 8.9 (8.4-10.2) mg/dL Total Bilirubin 1.3 (0.2-1.3) mg/dL AST 31 (17-59) U/L ALT 20 (4-49) U/L Alkaline Phosphatase 95 (38-126) U/L C-Reactive Protein 5.3 H (<1.0) mg/dL Total Protein 6.6 (6.3-8.2) g/dL Albumin 3.8 (3.5-5.0) g/dL Disposition Clinical Impression: Cellulitis of knee, right Disposition: ADMITTED IP TO THIS [facility] Condition: Serious Decision to Admit Reason: Admit from EC Decision Date: 01/18/25 Decision Time: 19:15
--- NOTE | 2025-01-18 16:18 | XR ---
EXAMINATION TYPE: XR knee complete RT DATE OF EXAM: 01/18/2025 4:07 PM COMPARISON: None. CLINICAL INDICATION: Male, 69 years old with history of TKR last week, red/swollen/pain, pain TECHNIQUE: 3 view(s) obtained. FINDINGS: No acute fracture or dislocation evident. There is a large joint effusion. Tibial femoral components are present. Follow up exams can be performed 7-10 days from acute trauma for continued pain IMPRESSION: 1. No acute osseous abnormality right knee. 2. Large joint effusion [facility], Workstation: [facility], 01/18/2025 4:16 PM
[2025-01-18] MEDS: MORPHINE SULFATE 4 MG/ML SYRINGE IVP STA (16:19)
[2025-01-18 16:39] LABS: Basophils # (A) 0.02 10*3/uL (0.00-0.10); Basophils % (A) 0.3 %; Eosinophils # (A) 0.00 10*3/uL (0.04-0.35); Eosinophils % (A) 0.0 %; HCT 35.9 % (39.6-50.0); HGB 11.6 g/dL (13.0-17.0); Lymphocytes # (A) 1.41 10*3/uL (0.90-5.00); Lymphocytes % (A) 20.3 %; MCH 28.7 pg (27.0-32.0); MCHC 32.3 g/dL (32.0-37.0); MCV 88.9 fL (80.0-97.0); Monocytes # (A) 0.71 10*3/uL (0.20-1.00); Monocytes % (A) 10.2 %; Neutrophils # (A) 4.70 10*3/uL (1.80-7.70); Neutrophils % (A) 67.9 %; Platelet Count 206 10*3/uL (140-440); RBC 4.04 10*6/uL (4.40-5.60); RDW 13.2 % (11.5-14.5); WBC 6.93 10*3/uL (4.50-10.00)
[2025-01-18 17:05] LABS: ALT 20 U/L (4-49); AST 31 U/L (17-59); African American GFR (CKD) >90 (>60 ml/min/1.73 sqM); Albumin 3.8 g/dL (3.5-5.0); Alkaline Phosphatase 95 U/L (38-126); Anion Gap 8 mmol/L; Blood Urea Nitrogen 17 mg/dL (9-20); Calcium 8.9 mg/dL (8.4-10.2); Carbon Dioxide 32 mmol/L (22-30); Chloride 97 mmol/L (98-107); Glucose 105 mg/dL (74-99); Non-African American GFR(CKD) >90 (>60 ml/min/1.73 sqM); Potassium 4.1 mmol/L (3.5-5.1); Sodium 137 mmol/L (137-145); Total Protein 6.6 g/dL (6.3-8.2)
[2025-01-18] MEDS ORDERED: ACETAMINOPHEN TAB 325 MG TAB PO PRN (19:15)
[2025-01-18] MEDS ORDERED: ONDANSETRON 4 MG/2 ML VIAL IVP PRN (19:15)
[2025-01-18] MEDS ORDERED: NALOXONE 0.4 MG/ML 1 ML VIAL IV PRN (19:15)
[2025-01-18] MEDS ORDERED: VANCOMYCIN IV PER PHARMACY 1 EACH MISC MISCELLANE PRN (19:18)
[2025-01-18] MEDS: CEFEPIME 2 GM in SODIUM CHLORIDE 0.9% 100 ML IVPB SCH (19:52)
[2025-01-18] MEDS: VANCOMYCIN 2,250 MG in SODIUM CHLORIDE 0.9% 500 ML 500 ML IVPB STA (21:08)
[2025-01-18] MEDS ORDERED: ALBUTEROL NEBULIZED 2.5 MG/3 ML INHALATION PRN (21:54)
[2025-01-18] MEDS: GABAPENTIN 400 MG CAP PO SCH (22:40)
[2025-01-19 06:12] LABS: Basophils # (A) 0.02 10*3/uL (0.00-0.10); Basophils % (A) 0.3 %; Eosinophils # (A) 0.18 10*3/uL (0.04-0.35); Eosinophils % (A) 2.9 %; HCT 35.5 % (39.6-50.0); HGB 11.1 g/dL (13.0-17.0); Lymphocytes # (A) 1.28 10*3/uL (0.90-5.00); Lymphocytes % (A) 20.8 %; MCH 28.2 pg (27.0-32.0); MCHC 31.3 g/dL (32.0-37.0); MCV 90.3 fL (80.0-97.0); Monocytes # (A) 0.61 10*3/uL (0.20-1.00); Monocytes % (A) 9.9 %; Neutrophils # (A) 4.01 10*3/uL (1.80-7.70); Neutrophils % (A) 65.1 %; Platelet Count 177 10*3/uL (140-440); RBC 3.93 10*6/uL (4.40-5.60); RDW 13.5 % (11.5-14.5); WBC 6.16 10*3/uL (4.50-10.00)
[2025-01-19 06:36] LABS: ALT 18 U/L (4-49); AST 27 U/L (17-59); African American GFR (CKD) >90 (>60 ml/min/1.73 sqM); Albumin 3.4 g/dL (3.5-5.0); Alkaline Phosphatase 75 U/L (38-126); Anion Gap 6 mmol/L; Blood Urea Nitrogen 19 mg/dL (9-20); Calcium 8.8 mg/dL (8.4-10.2); Carbon Dioxide 33 mmol/L (22-30); Chloride 97 mmol/L (98-107); Glucose 111 mg/dL (74-99); Non-African American GFR(CKD) >90 (>60 ml/min/1.73 sqM); Potassium 4.0 mmol/L (3.5-5.1); Sodium 136 mmol/L (137-145); Total Protein 6.1 g/dL (6.3-8.2)
[2025-01-19 06:51] VITALS: PULSE 78
[2025-01-19] MEDS: SYMBICORT 160-4.5 MCG INHALER INHALATION SCH (07:42)
[2025-01-19] MEDS: FORMOTEROL FUMARATE 20 MCG/2 ML NEBU INHALATION SCH (07:42)
[2025-01-19] MEDS: TIOTROPIUM 2.5 MCG INHALER INHALATION SCH (07:42)
[2025-01-19 09:02] VITALS: BP 119/81; RESP 18; TEMP 98.2
[2025-01-19] MEDS: VANCOMYCIN 2,250 MG in SODIUM CHLORIDE 0.9% 500 ML 500 ML IVPB SCH (09:15)
[2025-01-19] MEDS: PANTOPRAZOLE 40 MG TABLET PO SCH (09:15)
[2025-01-19] MEDS: BACLOFEN 10 MG TAB PO SCH (09:15)
[2025-01-19] MEDS: FUROSEMIDE 40 MG TAB PO SCH (09:15)
[2025-01-19] MEDS: SENNOSIDES-DOCUSATE SODIUM 1 EACH TAB PO SCH (09:15)
[2025-01-19] MEDS: TAMSULOSIN 0.4 MG CAP.ER.24H PO SCH (09:15)
[2025-01-19] MEDS: APIXABAN 5 MG TAB PO SCH (09:18)
[2025-01-19] MEDS: HYDROcodone/APAP 10-325MG 1 EACH TAB PO PRN (09:34)
[2025-01-19] MEDS: TRIAMCINOLONE 0.1% CREAM 80 GM TUBE TOPICAL SCH (09:36)
--- NOTE | 2025-01-19 09:59 | P.CNOR ---
History of Present Illness - HPI Consult date: 01/19/25 History of present illness: Patient is a 69-year-old male with history of A-fib on Eliquis, hypertension, hyperlipidemia who presents to the emergency department with complaints of right knee and right lower extremity pain. Patient had a right total knee arthroplasty performed by Dr. Amato on 01/13/2025. Orthopedics was consulted due to recent right total knee arthroplasty with concern for infection. Patient was seen at bedside this morning and states he does have a history of cellulitis to the right lower extremity specifically on the inner right thigh where he had lipomas removed about a year ago and states that this feels very similar to this. He states he does have some ecchymosis and areas in the upper leg that feel hard to the touch. Patient denies any issues with the knee joint itself. He denies any fevers or chills or nausea/vomiting. Patient denies any drainage from the knee. Patient states he does not have any significant knee pain at this time. White blood count is within normal limits. Patient denies any other issues at this time. Past Medical History Past Medical History: Atrial Fibrillation, COPD, Diabetes Mellitus, GERD/Reflux, Hypertension, Osteoarthritis (OA), Skin Disorder, Sleep Apnea/CPAP/BIPAP Additional Past Medical History / Comment(s): Occasional PVC's. Chronic back pain-has Morphine Pump. Hx cellulitis in legs multiple times. psoriasis & rosacea. no CPAP. History of Any Multi-Drug Resistant Organisms: None Reported Past Surgical History: Heart Catheterization, Hernia Repair, Joint Replacement, Orthopedic Surgery Additional Past Surgical History / Comment(s): BILATERAL HAND SX, RIGHT FOOT SX X3 bone spurs, left knee arthroscopy, left knee replacement, TOTAL RIGHT HIP REPLACEMENT, COLONOSCOPY, GRAPEFRUIT SIZED CYST REMOVED FROM TAILBONE AREA, BILATERAL CATARACT SURGERY. right thigh lipoma removed. right hand carpal tunnel surg. Past Anesthesia/Blood Transfusion Reactions: No Reported Reaction Past Psychological History: No Psychological Hx Reported Smoking Status: Former smoker Past Alcohol Use History: Occasional Additional Past Alcohol Use History / Comment(s): STARTED SMOKING AT AGE 17, QUIT IN THE , SMOKED 1PPD. Past Drug Use History: Marijuana Additional Drug Use History / Comment(s): MARIJUANA OCCASIONAL USE. VAPES THC. - Past Family History Mother Family Medical History: Cancer Additional Family Medical History / Comment(s): ovarian Sister(s) Family Medical History: Cancer Additional Family Medical History / Comment(s): skin Medications and Allergies Home Medications Medication Instructions Recorded Confirmed Type Meloxicam 15 mg PO DAILY 07/08/20 01/18/25 History Pantoprazole [Protonix] 40 mg PO DAILY 07/03/21 01/18/25 History Apixaban [Eliquis] 5 mg PO BID 09/19/23 01/18/25 History Lisinopril-Hctz 20-12.5 mg 1 tab PO DAILY 09/26/23 01/18/25 History [Zestoretic 20-12.5] Albuterol Inhaler [Ventolin Hfa 2 puff INHALATION RT-Q6H PRN 01/07/25 01/18/25 History Inhaler] DULoxetine HCL [Cymbalta] 30 mg PO DAILY 01/07/25 01/18/25 History Empagliflozin [Jardiance] 10 mg PO DAILY 01/07/25 01/18/25 History Furosemide [Lasix] 40 mg PO DAILY 01/07/25 01/18/25 History Potassium Chloride ER [K-Dur 10] 10 meq PO DAILY 01/07/25 01/18/25 History Tamsulosin [Flomax] 0.4 mg PO DAILY 01/07/25 01/18/25 History Umeclidinium Brm/Vilanterol Tr 1 puff INHALATION RT-DAILY 01/07/25 01/18/25 History [Anoro Ellipta 62.5-25 Mcg INH] HYDROcodone/APAP 10-325MG [[place] 1 tab PO Q6HR PRN #28 tab 01/13/25 01/18/25 Rx 10-325] Baclofen [Lioresal] 20 mg PO BID 01/18/25 01/18/25 History Fluticasone/Umeclidin/Vilanter 1 puff INHALATION RT-DAILY 01/18/25 01/18/25 History [Trelegy Ellipta 100-62.5-25] Gabapentin 800 mg PO TID 01/18/25 01/18/25 History Hydrocortisone Lotion [Hytone 2.5% 1 applic TOPICAL DAILY 01/18/25 01/18/25 History Lotion] Patient Own Pump 0 bag 01/18/25 History Sennosides/Docusate Sodium [Senna 1 tab PO DAILY 01/18/25 01/18/25 History Plus 8.6-50 mg Softgel] Cephalexin [Keflex] 500 mg PO Q6HR 10 Days #40 cap 01/19/25 Rx Allergies Allergy/AdvReac Type Severity Reaction Status Date / Time celecoxib [From Celebrex] Allergy sores and Verified 01/18/25 16:28 bleeding in his mouth metoprolol AdvReac Unknown made Verified 01/18/25 16:28 breathing worse when he had bronchitis Physical Examination Ecchymosis present to the upper thigh and the right lower extremity. Mild tenderness to patient over the knee near incision. There is previous scar from the right inner thigh about mid thigh is somewhat hardened area. Not warm to the touch. Patient does have what appears to be signs of venous stasis in the bilateral lower extremities. There is some evidence of fair amount of swelling diffusely present throughout the right knee due to recent knee replacement. Fusion tape is present over the right knee with scabbing present. Negative for any drainage from the knee incision. Patient is very sensitive to touch diffusely throughout the right calf. Patient does have good range of motion in the right knee and is able to flex knee to about 80 degrees while resting in bed. He lacks about 10 degrees of full extension. 4/5 in all major motor groups in bilateral lower extremities. Radial pulse intact bilaterally. DP pulses palpable. Results - Labs Labs: Abnormal Lab Results - Last 24 Hours (Table) 01/18/25 01/18/25 01/19/25 Range/Units 16:25 16:25 05:46 RBC 4.04 L 3.93 L (4.40-5.60) 10*6/uL Hgb 11.6 L 11.1 L (13.0-17.0) g/dL Hct 35.9 L 35.5 L (39.6-50.0) % MCHC 31.3 L (32.0-37.0) g/dL MPV 9.2 L 8.9 L (9.5-12.2) fL Immature Gran # 0.09 H 0.06 H (0.00-0.04) 10*3/uL Eosinophils # 0.00 L (0.04-0.35) 10*3/uL Sodium (137-145) mmol/L Chloride 97 L (98-107) mmol/L Carbon Dioxide 32 H (22-30) mmol/L Creatinine 0.62 L (0.66-1.25) mg/dL Glucose 105 H (74-99) mg/dL C-Reactive Protein 5.3 H (<1.0) mg/dL Total Protein (6.3-8.2) g/dL Albumin (3.5-5.0) g/dL 01/19/25 Range/Units 05:46 RBC (4.40-5.60) 10*6/uL Hgb (13.0-17.0) g/dL Hct (39.6-50.0) % MCHC (32.0-37.0) g/dL MPV (9.5-12.2) fL Immature Gran # (0.00-0.04) 10*3/uL Eosinophils # (0.04-0.35) 10*3/uL Sodium 136 L (137-145) mmol/L Chloride 97 L (98-107) mmol/L Carbon Dioxide 33 H (22-30) mmol/L Creatinine 0.58 L (0.66-1.25) mg/dL Glucose 111 H (74-99) mg/dL C-Reactive Protein (<1.0) mg/dL Total Protein 6.1 L (6.3-8.2) g/dL Albumin 3.4 L (3.5-5.0) g/dL H & H 01/18/25 01/19/25 Range/Units 16:25 05:46 Hgb 11.6 L 11.1 L (13.0-17.0) g/dL Hct 35.9 L 35.5 L (39.6-50.0) % Result Diagrams: 01/19/25 05:46 01/19/25 05:46 - Diagnostic results Knee x-ray: report reviewed, image reviewed (X-ray of the right knee does reveal total joint components that appear to be stable and in place. Evidence for joint effusion. Negative for any fracture) Assessment and Plan Assessment: 1. Recent right total knee arthroplasty; history of cellulitis of the right lower extremity 2. multiple medical comorbidities Plan: 1. Right lower extremity pain; history of recent right total knee arthroplasty; history of right lower extremity cellulitis x-ray of the right knee does reveal total joint components that appear to be stable and in place. Evidence for joint effusion. Negative for any fracture. I discussed the findings of the imaging and exam with my attending, Dr. Amato. At this time we are not recommending any orthopedic surgical intervention. We are recommend conservative measures with the use of antibiotics and pain medication as needed. Very low concern for infection in the knee. White blood count within normal limits. No joint pain with movement in the knee. Patient to go home with course of oral antibiotics due to cellulitis. Patient is stable from orthopedic standpoint for discharge. At this time orthopedics is signing off. Patient to follow-up in 1 week for 2-week postop visit from knee replacement. Please do no t hesitate to contact us for any further questions. 2. Appreciate medical and ID management 3. Pain management -[place]; Tylenol; gabapentin 4. DVT prophylaxis -Eliquis 5. GI prophylaxis -Protonix 6. PT/OT -weightbearing as tolerated with walker 7. Encourage incentive spirometer use 8. Appreciate consult Time with Patient: Less than 30
[2025-01-19] MEDS: MELOXICAM 7.5 MG TAB PO SCH (10:45)
[2025-01-19] MEDS: LISINOPRIL-HCTZ 20-12.5 MG 1 EACH TAB PO SCH (10:47)
[2025-01-19] MEDS: POTASSIUM CHLORIDE ER 10 MEQ TAB.ER.PRT PO SCH (11:41)
[2025-01-19] MEDS: MORPHINE SULFATE 4 MG/ML SYRINGE IV PRN (12:49)
--- NOTE | 2025-01-19 15:49 | P.HPIM ---
History of Present Illness H&P Date: 01/19/25 Chief Complaint: Right knee pain History of present illness; 69-year-old male with past medical history of atrial fibrillation (on Eliquis), hypertension, hyperlipidemia, COPD, diabetes mellitus, OA, and GERD presents with complaints of right knee pain. Of note the patient had a total right knee arthroplasty on 01/12/[address] Amato and discharged home the following day. Patient states yesterday physical therapy they are working with the therapist to became concerned that the overlying skin of the right knee appeared infected and the patient had noticed that morning as well that the area was red, warm to touch and swollen. Reports he has a history of cellulitis with 10+ episodes and states this feels very similar to his previous incident. Denies history of MRSA. Denies fever, chills, nausea, vomiting at this time. Patient also denies calf pain, chest pain, dyspnea, and palpitations. Reports he has been continue to take his Eliquis as prescribed. Labs: WBC 6.93, hemoglobin 11.6, platelets 206, neutrophils 4.7, sodium 137, potassium 4.1, bicarb 32, BUN 17, creatinine 0.62, glucose 105, CRP 5.3. Imaging: - ER right knee x-ray: No acute osseous abnormality, large joint effusion. At this time was deemed necessary the patient to be admitted for further workup of potential right knee cellulitis with consultations to infectious disease and orthopedics. REVIEW OF SYSTEMS: As stated above in HPI. The rest of the 14-point review of systems is negative. PHYSICAL EXAMINATION: GENERAL: The patient is alert and oriented x3, not in any acute distress. Well developed, well nourished. HEENT: Pupils are round and equally reacting to light. EOMI. No scleral icterus. No conjunctival pallor. Normocephalic, atraumatic. CARDIOVASCULAR: S1 and S2 present. No murmurs, rubs, or gallops. PULMONARY: Chest is clear to auscultation b/l, no wheezing or crackles. ABDOMEN: Soft, nontender, nondistended, normoactive bowel sounds. No palpable organomegaly. MUSCULOSKELETAL: Mild joint swelling in the right knee with surrounding erythema and warmth, surgical scar intact with no evidence of purulent discharge EXTREMITIES: No cyanosis, clubbing, or pedal edema. NEUROLOGICAL: Gross neurological examination did not reveal any focal deficits. SKIN: No rashes. Assessment and Plan #Cellulitis of the right knee: - Continue vancomycin, dosed by pharmacy (day 2) and cefepime 2 g IVPB every 8 hours (day 2) - Infectious disease consulted, appreciate further recommendations - Orthopedics consulted, no current plan for intervention recommended outpatient antibiotics and pain medication - Multimodal pain regiment - Blood cultures pending Chronic Conditions: #Atrial fibrillation: - Continue Eliquis 5 mg p.o. twice daily #Hypertension: - Continue home Zestoretic 2012.5 p.o. daily F: None E: Potassium chloride ER 10 mEq p.o. daily N: Heart healthy diet A: As tolerated DVT ppx: Eliquis 5 mg p.o. twice daily GI ppx: Protonix 40 mg p.o. daily CODE STATUS: Full code Dispo: Pending clinical course Yovana Hogan MD PGY-2 FM Dictation was produced using [employer] dictation software. please excuse any grammatical, word or spelling errors. Past Medical History Past Medical History: Atrial Fibrillation, COPD, Diabetes Mellitus, GERD/Reflux, Hypertension, Osteoarthritis (OA), Skin Disorder, Sleep Apnea/CPAP/BIPAP Additional Past Medical History / Comment(s): Occasional PVC's. Chronic back pain-has Morphine Pump. Hx cellulitis in legs multiple times. psoriasis & rosacea. no CPAP. History of Any Multi-Drug Resistant Organisms: None Reported Past Surgical History: Heart Catheterization, Hernia Repair, Joint Replacement, Orthopedic Surgery Additional Past Surgical History / Comment(s): BILATERAL HAND SX, RIGHT FOOT SX X3 bone spurs, left knee arthroscopy, left knee replacement, TOTAL RIGHT HIP REPLACEMENT, COLONOSCOPY, GRAPEFRUIT SIZED CYST REMOVED FROM TAILBONE AREA, BILATERAL CATARACT SURGERY. right thigh lipoma removed. right hand carpal tunnel surg. Past Anesthesia/Blood Transfusion Reactions: No Reported Reaction Past Psychological History: No Psychological Hx Reported Smoking Status: Former smoker Past Alcohol Use History: Occasional Past Drug Use History: Marijuana - Past Family History Mother Family Medical History: Cancer Additional Family Medical History / Comment(s): ovarian Sister(s) Family Medical History: Cancer Additional Family Medical History / Comment(s): skin Medications and Allergies Home Medications Medication Instructions Recorded Confirmed Type Meloxicam 15 mg PO DAILY 07/08/20 01/18/25 History Pantoprazole [Protonix] 40 mg PO DAILY 07/03/21 01/18/25 History Apixaban [Eliquis] 5 mg PO BID 09/19/23 01/18/25 History Lisinopril-Hctz 20-12.5 mg 1 tab PO DAILY 09/26/23 01/18/25 History [Zestoretic 20-12.5] Albuterol Inhaler [Ventolin Hfa 2 puff INHALATION RT-Q6H PRN 01/07/25 01/18/25 History Inhaler] DULoxetine HCL [Cymbalta] 30 mg PO DAILY 01/07/25 01/18/25 History Empagliflozin [Jardiance] 10 mg PO DAILY 01/07/25 01/18/25 History Furosemide [Lasix] 40 mg PO DAILY 01/07/25 01/18/25 History Potassium Chloride ER [K-Dur 10] 10 meq PO DAILY 01/07/25 01/18/25 History Tamsulosin [Flomax] 0.4 mg PO DAILY 01/07/25 01/18/25 History Umeclidinium Brm/Vilanterol Tr 1 puff INHALATION RT-DAILY 01/07/25 01/18/25 History [Anoro Ellipta 62.5-25 Mcg INH] HYDROcodone/APAP 10-325MG [[place] 1 tab PO Q6HR PRN #28 tab 01/13/25 01/18/25 Rx 10-325] Baclofen [Lioresal] 20 mg PO BID 01/18/25 01/18/25 History Fluticasone/Umeclidin/Vilanter 1 puff INHALATION RT-DAILY 01/18/25 01/18/25 History [Trelegy Ellipta 100-62.5-25] Gabapentin 800 mg PO TID 01/18/25 01/18/25 History Hydrocortisone Lotion [Hytone 2.5% 1 applic TOPICAL DAILY 01/18/25 01/18/25 History Lotion] Patient Own Pump 0 bag 01/18/25 History Sennosides/Docusate Sodium [Senna 1 tab PO DAILY 01/18/25 01/18/25 History Plus 8.6-50 mg Softgel] Cephalexin [Keflex] 500 mg PO Q6HR 10 Days #40 cap 01/19/25 Rx Allergies Allergy/AdvReac Type Severity Reaction Status Date / Time celecoxib [From Celebrex] Allergy sores and Verified 01/18/25 16:28 bleeding in his mouth metoprolol AdvReac Unknown made Verified 01/18/25 16:28 breathing worse when he had bronchitis Physical Exam Vitals: Vital Signs Temp Pulse Resp BP Pulse Ox 01/19/25 06:40 97.8 F 78 16 114/76 95 01/19/25 01:55 97.7 F 90 16 136/101 96 01/18/25 18:05 97.8 F 87 18 120/64 94 L 01/18/25 15:30 98.0 F 62 18 141/90 99 Intake and Output 01/18/25 01/19/25 01/19/25 22:59 06:59 14:59 Other: Weight 125.645 kg Results CBC & Chem 7: 01/19/25 05:46 01/19/25 05:46 Labs: Abnormal Lab Results - Last 24 Hours (Table) 01/18/25 01/18/25 01/19/25 Range/Units 16:25 16:25 05:46 RBC 4.04 L 3.93 L (4.40-5.60) 10*6/uL Hgb 11.6 L 11.1 L (13.0-17.0) g/dL Hct 35.9 L 35.5 L (39.6-50.0) % MCHC 31.3 L (32.0-37.0) g/dL MPV 9.2 L 8.9 L (9.5-12.2) fL Immature Gran # 0.09 H 0.06 H (0.00-0.04) 10*3/uL Eosinophils # 0.00 L (0.04-0.35) 10*3/uL Sodium (137-145) mmol/L Chloride 97 L (98-107) mmol/L Carbon Dioxide 32 H (22-30) mmol/L Creatinine 0.62 L (0.66-1.25) mg/dL Glucose 105 H (74-99) mg/dL C-Reactive Protein 5.3 H (<1.0) mg/dL Total Protein (6.3-8.2) g/dL Albumin (3.5-5.0) g/dL 01/19/25 Range/Units 05:46 RBC (4.40-5.60) 10*6/uL Hgb (13.0-17.0) g/dL Hct (39.6-50.0) % MCHC (32.0-37.0) g/dL MPV (9.5-12.2) fL Immature Gran # (0.00-0.04) 10*3/uL Eosinophils # (0.04-0.35) 10*3/uL Sodium 136 L (137-145) mmol/L Chloride 97 L (98-107) mmol/L Carbon Dioxide 33 H (22-30) mmol/L Creatinine 0.58 L (0.66-1.25) mg/dL Glucose 111 H (74-99) mg/dL C-Reactive Protein (<1.0) mg/dL Total Protein 6.1 L (6.3-8.2) g/dL Albumin 3.4 L (3.5-5.0) g/dL
--- NOTE | 2025-01-19 15:56 | P.DS ---
Providers Date of admission: 01/18/25 17:25 Attending physician: Shar Velasco MD Consults: 01/18/25 19:15 Consult Physician Routine Consulting Provider: Jose Amato Consult Reason/Comments: right knee cellulitis Do you want consulting provider notified?: Yes, Notify in am 01/18/25 19:18 Consult Physician Routine Consulting Provider: Gage Hernandez Consult Reason/Comments: right knee cellulitis Do you want consulting provider notified?: Yes, Notify in am Primary care physician: Edwin Reid MD Hospital Course: Discharge Diagnosis: Cellulitis of the right knee Atrial fibrillation Hypertension GERD Chronic pain Hospital Course: History of present illness; 69-year-old male with past medical history of atrial fibrillation (on Eliquis), hypertension, hyperlipidemia, COPD, diabetes keren litus, OA, and GERD presents with complaints of right knee pain. Of note the patient had a total right knee arthroplasty on 01/12/[address] Amato and discharged home the following day. Patient states yesterday physical therapy they are working with the therapist to became concerned that the overlying skin of the right knee appeared infected and the patient had noticed that morning as well that the area was red, warm to touch and swollen. Reports he has a history of cellulitis with 10+ episodes and states this feels very similar to his previous incident. Denies history of MRSA. Denies fever, chills, nausea, vomiting at this time. Patient also denies calf pain, chest pain, dyspnea, and palpitations. Reports he has been continue to take his Eliquis as prescribed. Labs in the ER significant for WBC 6.93, hemoglobin 11.6, platelets 206, neutrophils 4.7, sodium 137, potassium 4.1, bicarb 32, BUN 17, creatinine 0.62, glucose 105, CRP 5.3. Imaging in the ER significant for right knee x-ray which showed no acute osseous abnormality, did show large joint effusion. At this time was deemed necessary the patient to be admitted to observation for further workup of potential right knee cellulitis with consultations to infectious disease and orthopedics. While admitted to observation the patient was seen by his orthopedic surgeon who performed the total right arthroplasty Dr. Leone who did not recommend any acute intervention at this time and signed off advising for outpatient antibiotics and pain management. Patient was also seen by infectious disease who recommended the patient be started on Keflex for a course of 14 days outpatient p.o. Patient did receive vancomycin and cefepime IV before being started on his oral antibiotic regiment for outpatient. At time of discharge patient was feeling better, stated his leg was less painful and he was able to ambulate. Patient is hemodynamically stable for discharge to home. Patient advised to complete the outpatient course of Keflex. Patient is also advised to follow-up with his PCP and orthopedic surgeon Dr. Leone in 3 to 5 days. Pt seen and examined at bedside: No significant overnight events, excited at the prospect of getting discharged. Patient has no other complaints or concerns at this time. Vital signs reveiwed and stable: GENERAL: The patient is alert and oriented x3, not in any acute distress. Well developed, well nourished. HEENT: Pupils are round and equally reacting to light. EOMI. No scleral icterus. No conjunctival pallor. Normocephalic, atraumatic. CARDIOVASCULAR: S1 and S2 present. No murmurs, rubs, or gallops. PULMONARY: Chest is clear to auscultation b/l, no wheezing or crackles. ABDOMEN: Soft, nontender, nondistended, normoactive bowel sounds. No palpable organomegaly. MUSCULOSKELETAL: Mild joint swelling in the right knee with surrounding erythema and warmth, surgical scar intact with no evidence of purulent discharge EXTREMITIES: No cyanosis, clubbing, or pedal edema. NEUROLOGICAL: Gross neurological examination did not reveal any focal deficits. SKIN: No rashes. A total of greater than 30 minutes were spent preparing this complex discarge summary. Patient was discharged on 01/17/2025. Patient Condition at Discharge: Good Plan - Discharge Summary New Discharge Prescriptions: New Cephalexin [Keflex] 500 mg PO Q6HR 10 Days #40 cap Continue Meloxicam 15 mg PO DAILY Pantoprazole [Protonix] 40 mg PO DAILY Apixaban [Eliquis] 5 mg PO BID Lisinopril-Hctz 20-12.5 mg [Zestoretic 20-12.5] 1 tab PO DAILY Potassium Chloride ER [K-Dur 10] 10 meq PO DAILY Tamsulosin [Flomax] 0.4 mg PO DAILY DULoxetine HCL [Cymbalta] 30 mg PO DAILY HYDROcodone/APAP 10-325MG [[place] 10-325] 1 tab PO Q6HR PRN #28 tab PRN Reason: Pain Baclofen [Lioresal] 20 mg PO BID Gabapentin 800 mg PO TID Patient Own Pump 0 bag Umeclidinium Brm/Vilanterol Tr [Anoro Ellipta 62.5-25 Mcg INH] 1 puff INHALATION RT-DAILY Albuterol Inhaler [Ventolin Hfa Inhaler] 2 puff INHALATION RT-Q6H PRN PRN Reason: Shortness Of Breath Empagliflozin [Jardiance] 10 mg PO DAILY Furosemide [Lasix] 40 mg PO DAILY Fluticasone/Umeclidin/Vilanter [Trelegy Ellipta 100-62.5-25] 1 puff INHALATION RT-DAILY Sennosides/Docusate Sodium [Senna Plus 8.6-50 mg Softgel] 1 tab PO DAILY Hydrocortisone Lotion [Hytone 2.5% Lotion] 1 applic TOPICAL DAILY Discharge Medication List Meloxicam 15 mg PO DAILY 07/08/20 [History] Pantoprazole [Protonix] 40 mg PO DAILY 07/03/21 [History] Apixaban [Eliquis] 5 mg PO BID 09/19/23 [History] Lisinopril-Hctz 20-12.5 mg [Zestoretic 20-12.5] 1 tab PO DAILY 09/26/23 [History] Albuterol Inhaler [Ventolin Hfa Inhaler] 2 puff INHALATION RT-Q6H PRN 01/07/25 [History] DULoxetine HCL [Cymbalta] 30 mg PO DAILY 01/07/25 [History] Empagliflozin [Jardiance] 10 mg PO DAILY 01/07/25 [History] Furosemide [Lasix] 40 mg PO DAILY 01/07/25 [History] Potassium Chloride ER [K-Dur 10] 10 meq PO DAILY 01/07/25 [History] Tamsulosin [Flomax] 0.4 mg PO DAILY 01/07/25 [History] Umeclidinium Brm/Vilanterol Tr [Anoro Ellipta 62.5-25 Mcg INH] 1 puff INHALATION RT-DAILY 01/07/25 [History] HYDROcodone/APAP 10-325MG [[place] 10-325] 1 tab PO Q6HR PRN #28 tab 01/13/25 [Rx] Baclofen [Lioresal] 20 mg PO BID 01/18/25 [History] Fluticasone/Umeclidin/Vilanter [Trelegy Ellipta 100-62.5-25] 1 puff INHALATION RT-DAILY 01/18/25 [History] Gabapentin 800 mg PO TID 01/18/25 [History] Hydrocortisone Lotion [Hytone 2.5% Lotion] 1 applic TOPICAL DAILY 01/18/25 [History] Patient Own Pump 0 bag 01/18/25 [History] Sennosides/Docusate Sodium [Senna Plus 8.6-50 mg Softgel] 1 tab PO DAILY 01/18/25 [History] Cephalexin [Keflex] 500 mg PO Q6HR 10 Days #40 cap 01/19/25 [Rx] Follow up Appointment(s)/Referral(s): Edwin Reid MD [Primary Care Provider] - 1-2 days Jose Amato MD [STAFF PHYSICIAN] - 1 Week Patient Instructions/Handouts: Cellulitis (GEN) Discharge Disposition: HOME SELF-CARE
--- NOTE | 2025-01-20 08:05 | P.CONS ---
History of Present Illness - Reason for Consult Consult date: 01/19/25 Right knee cellulitis Requesting physician: Victoria Feliz - Chief Complaint Right leg swelling and redness x 1 day - History of Present Illness Patient is a 69-year-old male with a past medical history significant for Atrial Fibrillation, COPD, Diabetes Mellitus, GERD/Reflux, Hypertension, Osteoarthritis (OA), Skin Disorder, Sleep Apnea/CPAP/BIPAP did have a history of recurrent cellulitis to the right lower extremity and the patient is status post right knee replacement on 01/13/2025 patient was subsequent discharged home patient now presenting back to the hospital yesterday afternoon concerning for increasing swelling and redness to the right lower extremity that he noticed the morning of presentation to the hospital patient was describing more diffuse swelling and redness to the right lower extremity patient did have mild aching pain without any radiation denies any skin breakdown or any high-grade fever patient apparently did have a physical therapy and therapist was concerned it may have been effective for the patient was advised to go to the hospital on presentation to the hospital patient has been afebrile and no fever have recorded subsequently patient was not tachycardic hypotensive or hypoxic patient did have a white count of 6.93 creatinine 0.62 liver enzymes are normal blood cultures obtained which are currently pending patient did have x-ray of the knee did not show any bony dramality large joint effusion patient was admitted to the hospital he was started on cefepime 2 g every 8 hours as well as vancomycin pharmacy to dose has received 2 doses patient has been evaluated by orthopedic [employer] who has cleared the patient for discharge plan at time of evaluation patient is up in the bed and wants to go home mention he is feeling better has already received 3 doses of IV antibiotic and would like to go home on oral antibiotic Review of Systems Positive point and negatives has been mentioned in the HPI, complete review of systems was performed and all other systems are negative Past Medical History Past Medical History: Atrial Fibrillation, COPD, Diabetes Mellitus, GERD/Reflux, Hypertension, Osteoarthritis (OA), Skin Disorder, Sleep Apnea/CPAP/BIPAP Additional Past Medical History / Comment(s): Occasional PVC's. Chronic back pain-has Morphine Pump. Hx cellulitis in legs multiple times. psoriasis & rosacea. no CPAP. History of Any Multi-Drug Resistant Organisms: None Reported Past Surgical History: Heart Catheterization, Hernia Repair, Joint Replacement, Orthopedic Surgery Additional Past Surgical History / Comment(s): BILATERAL HAND SX, RIGHT FOOT SX X3 bone spurs, left knee arthroscopy, left knee replacement, TOTAL RIGHT HIP REPLACEMENT, COLONOSCOPY, GRAPEFRUIT SIZED CYST REMOVED FROM TAILBONE AREA, BILATERAL CATARACT SURGERY. right thigh lipoma removed. right hand carpal tunnel surg. Past Anesthesia/Blood Transfusion Reactions: No Reported Reaction Past Psychological History: No Psychological Hx Reported Smoking Status: Former smoker Past Alcohol Use History: Occasional Past Drug Use History: Marijuana - Past Family History Mother Family Medical History: Cancer Additional Family Medical History / Comment(s): ovarian Sister(s) Family Medical History: Cancer Additional Family Medical History / Comment(s): skin Medications and Allergies Home Medications Medication Instructions Recorded Confirmed Type Meloxicam 15 mg PO DAILY 07/08/20 01/18/25 History Pantoprazole [Protonix] 40 mg PO DAILY 07/03/21 01/18/25 History Apixaban [Eliquis] 5 mg PO BID 09/19/23 01/18/25 History Lisinopril-Hctz 20-12.5 mg 1 tab PO DAILY 09/26/23 01/18/25 History [Zestoretic 20-12.5] Albuterol Inhaler [Ventolin Hfa 2 puff INHALATION RT-Q6H PRN 01/07/25 01/18/25 History Inhaler] DULoxetine HCL [Cymbalta] 30 mg PO DAILY 01/07/25 01/18/25 History Empagliflozin [Jardiance] 10 mg PO DAILY 01/07/25 01/18/25 History Furosemide [Lasix] 40 mg PO DAILY 01/07/25 01/18/25 History Potassium Chloride ER [K-Dur 10] 10 meq PO DAILY 01/07/25 01/18/25 History Tamsulosin [Flomax] 0.4 mg PO DAILY 01/07/25 01/18/25 History Umeclidinium Brm/Vilanterol Tr 1 puff INHALATION RT-DAILY 01/07/25 01/18/25 History [Anoro Ellipta 62.5-25 Mcg INH] HYDROcodone/APAP 10-325MG [[place] 1 tab PO Q6HR PRN #28 tab 01/13/25 01/18/25 Rx 10-325] Baclofen [Lioresal] 20 mg PO BID 01/18/25 01/18/25 History Fluticasone/Umeclidin/Vilanter 1 puff INHALATION RT-DAILY 01/18/25 01/18/25 History [Trelegy Ellipta 100-62.5-25] Gabapentin 800 mg PO TID 01/18/25 01/18/25 History Hydrocortisone Lotion [Hytone 2.5% 1 applic TOPICAL DAILY 01/18/25 01/18/25 History Lotion] Patient Own Pump 0 bag 01/18/25 History Sennosides/Docusate Sodium [Senna 1 tab PO DAILY 01/18/25 01/18/25 History Plus 8.6-50 mg Softgel] Cephalexin [Keflex] 500 mg PO Q6HR 10 Days #40 cap 01/19/25 Rx Allergies Allergy/AdvReac Type Severity Reaction Status Date / Time celecoxib [From Celebrex] Allergy sores and Verified 01/18/25 16:28 bleeding in his mouth metoprolol AdvReac Unknown made Verified 01/18/25 16:28 breathing worse when he had bronchitis Physical Exam Vitals: Vital Signs Temp Pulse Resp BP BP Pulse Ox 01/19/25 07:00 98.2 F 18 119/81 95 01/19/25 06:40 97.8 F 78 16 114/76 95 01/19/25 01:55 97.7 F 90 16 136/101 96 01/18/25 18:05 97.8 F 87 18 120/64 94 L 01/18/25 15:30 98.0 F 62 18 141/90 99 Intake and Output 01/18/25 01/19/25 01/19/25 22:59 06:59 14:59 Other: Voiding Method Toilet Weight 125.645 kg 125.645 kg GENERAL DESCRIPTION: Elderly male up in bed, no distress. No tachypnea or ac cessory muscle of respiration use. HEENT: Shows Pallor , no scleral icterus. Oral mucous membrane is dry. No pharyngeal erythema or thrush NECK: Trachea central, no thyromegaly. LUNGS: Unlabored breathing. Clear to auscultation anteriorly. No wheeze or crackle. HEART: S1, S2, regular rate and rhythm. No loud murmur ABDOMEN: Soft, no tenderness , guarding or rigidity, no organomegaly EXTREMITIES: Right lower extremity did have some swelling and redness which seem to extend into the knee area already incision is intact and there is no drainage SKIN: No rash, no masses palpable. NEUROLOGICAL: The patient is awake, alert, oriented x3, mood and affect normal. Results CBC & Chem 7: 01/19/25 05:46 01/19/25 05:46 Labs: Abnormal Lab Results - Last 24 Hours (Table) 01/18/25 01/18/25 01/19/25 Range/Units 16:25 16:25 05:46 RBC 4.04 L 3.93 L (4.40-5.60) 10*6/uL Hgb 11.6 L 11.1 L (13.0-17.0) g/dL Hct 35.9 L 35.5 L (39.6-50.0) % MCHC 31.3 L (32.0-37.0) g/dL MPV 9.2 L 8.9 L (9.5-12.2) fL Immature Gran # 0.09 H 0.06 H (0.00-0.04) 10*3/uL Eosinophils # 0.00 L (0.04-0.35) 10*3/uL Sodium (137-145) mmol/L Chloride 97 L (98-107) mmol/L Carbon Dioxide 32 H (22-30) mmol/L Creatinine 0.62 L (0.66-1.25) mg/dL Glucose 105 H (74-99) mg/dL C-Reactive Protein 5.3 H (<1.0) mg/dL Total Protein (6.3-8.2) g/dL Albumin (3.5-5.0) g/dL 01/19/25 Range/Units 05:46 RBC (4.40-5.60) 10*6/uL Hgb (13.0-17.0) g/dL Hct (39.6-50.0) % MCHC (32.0-37.0) g/dL MPV (9.5-12.2) fL Immature Gran # (0.00-0.04) 10*3/uL Eosinophils # (0.04-0.35) 10*3/uL Sodium 136 L (137-145) mmol/L Chloride 97 L (98-107) mmol/L Carbon Dioxide 33 H (22-30) mmol/L Creatinine 0.58 L (0.66-1.25) mg/dL Glucose 111 H (74-99) mg/dL C-Reactive Protein (<1.0) mg/dL Total Protein 6.1 L (6.3-8.2) g/dL Albumin 3.4 L (3.5-5.0) g/dL Assessment and Plan (1) Cellulitis of right leg Status: Acute Code(s): L03.115 - CELLULITIS OF RIGHT LOWER LIMB SNOMED Code(s): 05721795856478718 (2) Cellulitis of knee, right Status: Acute Code(s): L03.115 - CELLULITIS OF RIGHT LOWER LIMB SNOMED Code(s): 81034118761380282 Plan: 1patient presented hospital increasing swelling redness of right lower extremity especially to the right lower leg some involvement of the knee area in this patient did have right knee replacement on 01/13/2025 patient is currently not running any fever did have a normal white count did have the x-ray with evidence of right knee effusion, patient has been evaluated and has been cleared for discharge by orthopedics [employer] and the patient is currently demanding to be discharged on oral antibiotic I have detailed discussion with the patient the need for aggressive treatment of the cellulitis as the patient did have underlying prosthetic knee and will need to wait for the culture however the patient is reluctant and want to be discharged as he told me that the orthopedics told him there was no infection to the knee 2care has been discussed with the resident physician will advise Keflex 500 mg p.o. every 6 hours for 10 days, at the same time patient has been advised if he develops any fever for any worsening swelling or redness he needs to come back to the hospital right away Thank you for this consultation Dictation was produced using [employer] dictation software. please excuse any grammatical, word or spelling errors. Time with Patient: Greater than 30
== END 2025-01-19 14:14 | disposition home or self-care (01) ==
LOC: EC 15:29 → 6NMEDSUR 17:25 → 1SOBS 01-19 00:06
PROVIDERS: ADMIT Internal Medicine; ATTEND Internal Medicine
DX: L03.115 Cellulitis of right lower limb (principal); I48.91 Unspecified atrial fibrillation; I10 Essential (primary) hypertension; E78.5 Hyperlipidemia, unspecified; E11.9 Type 2 diabetes mellitus without complications; J44.9 Chronic obstructive pulmonary disease, unspecified; K21.9 Gastro-esophageal reflux disease without esophagitis; M19.90 Unspecified osteoarthritis, unspecified site; G47.30 Sleep apnea, unspecified; G89.29 Other chronic pain; Z79.01 Long term (current) use of anticoagulants; Z79.1 Long term (current) use of non-steroidal anti-inflammatories (NSAID); Z79.84 Long term (current) use of oral hypoglycemic drugs; Z79.51 Long term (current) use of inhaled steroids; Z79.899 Other long term (current) drug therapy; Z88.6 Allergy status to analgesic agent; Z88.8 Allergy status to other drugs, medicaments and biological substances; Z96.653 Presence of artificial knee joint, bilateral; Z87.2 Personal history of diseases of the skin and subcutaneous tissue; Z87.891 Personal history of nicotine dependence
CPT/HCPCS: 96366 ×3; 96375 ×2; 96365; 96367; 99284; 36415; 94640; 80053 ×2; 83605; 85025 ×2; 86140; 87040; 73562; G0378 ×2; J2270 ×2; J0692 ×2; J3373 ×2